=== PATIENT | female | born 1995 ===

== ENCOUNTER → 2020-09-11 12:58 | Outpatient (REF) | payer OTHER, SELFPAY ==
--- NOTE | 2020-09-11 13:02 | CA_ITS ---
Transthoracic Echocardiogram Patient (Last, First, Middle): Ivelisse Martin, Gender: Female Date of : 1995 Age: 25 Procedure Date: 09/11/2020 Procedure Type: Transthoracic Echocardiogram Location: OP Height: 160.02 cm Weight: 115.67 kg BSA: 2.14 m2 Heart Rate: bpm BP: 112 / 86 mmHg Home School Liaison Officer: DUKE Coffman MD: Charissa Adams MD Well Digger: Sushil Chaudhari MD Symptoms: I38 - Endocarditis, valve unspecified Study Quality: Technically Difficult ECG Rhythm: Sinus Conclusions: - 1. Low normal LV systolic function 2. Cardiac valves not well visualized and vegetations cannot be ruled out, cardiac valvular Doppler within normal limits 3. Normal RV systolic pressure 4. No pericardial effusion Findings Procedure Information Contrast agent, definity, is being given per protocol without apparent complications. Left Ventricle Normal left ventricular cavity size. There is normal left ventricular wall thickness. The left ventricular systolic function is low normal. The visually estimated ejection fraction is between 50-55%. Spectral Doppler is indicative of a normal filling pattern. Right Ventricle The right ventricle was not well visualized. Atria The left atrium is normal in size. Interatrial shunt cannot be excluded. The right atrium was not well visualized. Aortic Valve The aortic valve was not well visualized. There is no aortic valve stenosis. There is no aortic valve regurgitation. Mitral Valve The mitral valve was not well visualized. There is no mitral valve regurgitation. There is no mitral valve stenosis. Pulmonic Valve The pulmonic valve was not well visualized. Tricuspid Valve There is trace tricuspid valve regurgitation. The right ventricular systolic pressure is normal. The right ventricular systolic pressure is 17 mmHg. There is no evidence of pulmonary hypertension. Great Vessels The aorta was not well visualized. The pulmonary artery was not well visualized. Venous The inferior vena cava is normal in size and collapses greater than 50% with inspiration. Pericardium/Pleural There is no evidence of pericardial effusion. Prior Study Comparison No prior study available for comparison. Recommendations, Care & Conclusions Consider a ROBERTO if clinically appropriate. Measurements 2D Linear Measurements IVSd: 1.03 0.6-0.9/0.6-1.0 cm LVIDd: 5.47 3.9-5.3/4.2-5.9 cm LVIDd Index: 2.56 2.4-3.2/2.2-3.1 cm/m2 LVIDs: 3.86 2.0-3.6 cm LVPWd: 0.93 0.7-1.1 cm Ao Root: 2.80 2.1-3.5 cm LA Diam: 4.30 2.7-3.8/3.0-4.0 cm LAIDs Index: 2.01 1.5-2.3 cm/m2 LV Mass: 255.50 67-162/88-224 g LV Mass Index: 119.39 43-95/49-115 g/m2 LVOT Diam: 2.20 3.0+(-)1.3 cm 2D Systolic Function EF 4C: 43.40 >55% EF 2C: 63.40 >55% EF BiP: 53.50 >55% Mitral Valve MV Pk E: 0.73 MV PK A: 0.62 MV Decel Time: 118.00 E/A: 1.20 E'Lateral: 9.03 E'Medial: 7.29 E/E' Med: 10.00 E/E' Lat: 8.10 Aortic Valve AoV Pk Thom: 1.45 AoV Mn Thom: 1.02 AoV VTI: 0.25 AoV Pk Grad: 8.00 Aov Mn Grad: 5.00 JOHN Cont.VTI: 2.02 LVOT LVOT Pk Thom: 0.72 LVOT Mn Thom: 0.51 LVOT VTI: 0.13 LVOT Pk Grad: 2.00 LVOT Mn Grad: 1.00 LVOT Diam: 2.20 LVOT Area: 3.80 Diastolic Function MV Pk E: 0.73 MV Pk A: 0.62 E/A: 1.20 E'Medial: 7.29 E/E' Med: 10.00 E' Laterial: 9.03 E/E' Lat: 8.10 Tricuspid Valve TR Pk Thom: 1.86 TR Pk Grad: 14.00 RA Press: 3.00 RVSP: 17.00 Great Vessels Aorta Ao Root-2D: 2.80 2.0-3.7 cm Ao Asc: 2.80 2.1-3.4 cm Ao Arch: 2.50 Updated in Other Vendor System with Status of Final Sushil Chaudhari MD electronically signed on 09/11/2020 3:38:56 PM with status of Final
== END ==
LOC: HO.CARD 12:58
PROVIDERS: PCP Internal Medicine; Visit Provider Internal Medicine
DX: I38 Endocarditis, valve unspecified (principal)
CPT/HCPCS: 93306; Q9957

== ENCOUNTER 2020-11-14 14:33 | Outpatient (REF) | payer OTHER, SELFPAY ==
[2020-11-19 13:31] LABS: HPV mRNA E6/E7 rflx Not Detected (Not Detected)
== END 2020-11-14 14:34 | disposition home or self-care (01) ==
LOC: HO.LAB 14:33
PROVIDERS: PCP Internal Medicine; Visit Provider Advanced Practice Midwife
DX: Z01.419 Encounter for gynecological examination (general) (routine) without abnormal findings (principal); Z11.51 Encounter for screening for human papillomavirus (HPV); E66.01 Morbid (severe) obesity due to excess calories; Z68.43 Body mass index [BMI] 50.0-59.9, adult
CPT/HCPCS: 36415; 87624; 88142

== ENCOUNTER 2021-04-01 13:22 | Outpatient (REF) | payer OTHER, SELFPAY ==
--- NOTE | ~2021-04-01 | XR_ITS ---
EXAMINATION: XR ANKLE, LEFT CLINICAL INFORMATION: Injury of left ankle COMPARISON: None TECHNIQUE: AP, lateral, and mortise views of the left ankle. FINDINGS: The bones and soft tissues are normal. No fracture. Alignment is anatomic. Joint spaces are maintained. No joint effusion. XR/XR ankle LT min 3V IMPRESSION: Normal left ankle.
== END 2021-04-01 13:23 | disposition home or self-care (01) ==
LOC: HO.HMGCX 13:22
PROVIDERS: PCP Internal Medicine; Visit Provider Nurse Practitioner Family
DX: S99.912A Unspecified injury of left ankle, initial encounter (principal)
CPT/HCPCS: 73610

== ENCOUNTER 2021-08-04 15:04 | Outpatient (REF) | payer OTHER, SELFPAY ==
[2021-08-04 15:18] LABS: MANUAL DIFF FLAG NO
[2021-08-04 15:26] LABS: Basophils Percent Auto 0.2 % (0-2); Eosinophils Absolute Auto 0.1 X10*3/uL (0.0-0.4); Eosinophils Percent Auto 0.5 % (0-4); Hematocrit 41.2 % (37.0-47.0); Hemoglobin 13.2 g/dl (12.0-16.0); Imm Gran Abs Auto 0.04 X10*3/uL (0.00-0.03); Imm Gran Pct Auto 0.4 % (0.0-0.4); Lymphocytes Absolute Auto 2.8 X10*3/uL (1.2-4.9); Lymphocytes Percent Auto 27.1 % (20-40); Mean Corpuscular Volume 84.3 fL (80.0-98.0); Mean Platelet Volume 9.6 fL (9.4-12.3); Monocytes Absolute Auto 0.6 X10*3/uL (0.1-1.2); Monocytes Percent Auto 5.6 % (2-11); Neutrophils Absolute Auto 6.7 x10*3/uL (2.0-8.3); Neutrophils Percent Auto 66.2 % (45-73); Platelet Count 415 X10*3/uL (160-400); Red Blood Count 4.89 X10*6/uL (4.20-5.50); Red Cell Distribution Width 14.5 % (11.0-16.0); White Blood Count 10.1 X10*3/uL (4.8-10.8)
[2021-08-04 15:58] LABS: Alanine Aminotransferase 37 U/L (0-31); Alkaline Phosphatase 112 U/L (39-117); Anion Gap 11 (12-20); Aspartate Amino Transferase 25 U/L (5-31); Bilirubin Total 0.3 mg/dL (0.0-1.0); Blood Urea Nitrogen 11 mg/dL (9-16); Calcium 8.8 mg/dL (8.4-10.2); Carbon Dioxide 25 mmol/L (22-29); Chloride 109 mmol/L (96-108); Cholesterol 192 mg/dL; Estimated Glomerular Filt Rate > 60; Glucose Random 93 mg/dL (60-115); HDL Cholesterol 44 mg/dL; LDL Cholesterol Calculated 130 mg/dl; Potassium 4.4 mmol/L (3.3-5.1); Sodium 141 mmol/L (135-145); Total Protein 6.8 g/dL (6.5-8.0); Triglycerides 92 mg/dL
[2021-08-04 16:04] LABS: Estimated Average Glucose 100 mg/dL; Hemoglobin A1c % 5.1 %
[2021-08-04 16:18] LABS: Free T4 (Free Thyroxine) 1.04 ng/dL (0.71-1.85); Vitamin D 25-OH Total 7.2 ng/mL (>30)
[2021-08-04 16:31] LABS: Folate 9.8 ng/mL (> or = 4.0); Vitamin B12 310 pg/mL (200-900)
== END 2021-08-04 15:05 | disposition home or self-care (01) ==
LOC: HO.LAB 15:04
PROVIDERS: PCP Internal Medicine; Visit Provider Internal Medicine
DX: K21.9 Gastro-esophageal reflux disease without esophagitis (principal); E78.00 Pure hypercholesterolemia, unspecified
CPT/HCPCS: 36415; 80053; 80061; 82306; 82607; 82746; 83036; 84439; 84443; 85025

== ENCOUNTER → 2021-09-01 12:33 | Outpatient (BNVA) | payer OTHER, SELFPAY | PROVIDERS: PCP Internal Medicine; Visit Provider Physician Assistant | DX: S93.402A Sprain of unspecified ligament of left ankle, initial encounter (principal) | CPT/HCPCS: 99202 ==

== ENCOUNTER 2021-09-24 14:00 | Outpatient (RCR) | payer OTHER, SELFPAY ==
--- NOTE | 2021-09-01 16:44 | MHC.PT.EP ---
[facility] [place] Office [place] Office [place] Office [address]akan Baker [address] [phone] F: [phone] F: [phone] F: [phone] F: [phone] Physical Therapy Plan of Care Date of Evaluation: Date of Surgery: n/a Diagnosis: pain in L ankle and joints of L foot Assessment: Patient is a 26 year old female presenting to PT with complaints of pain in her L ankle and foot. Pt reports onset of pain began March 2021 due to injuring her ankle when on a water slide. She presents today with impairments in pain, ankle ROM, ankle strength, and balance. 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 Pt expresses snf goal of reducing pain, and is motivated to work towards this in PT. Clinical presentation today is most consistent with signs and sx associated with possible ankle sprain and pt will benefit from skilled PT to address the following problems and impairments noted upon evaluation: pain, ankle ROM, ankle strength, and balance. These problems limit the patient with the following functional activities: standing, ambulating, stair negotiation, ADLs, and work. The prescribed treatment plan of care is medically necessary. Co-morbidities of per pt hx of heart surgery when she was little due to murmur were identified and taken into considerations of plan of care. Pt was educated on HEP, role of PT, prognosis, POC. Frequency and Duration: The patient will be seen 2 x week x 4 weeks Short Term Goals: Pt will demonstrate L ankle AROM equal B in 2 weeks. Pt will demonstraet L ankle MMT equal B in 2 weeks. Pt will demonstrate ability to SLS x 30 sec with min to no ankle strategy or sway in 2 weeks. Garbage Person Goals: Pt will demonstrate improved LEFI by 9 points in 4 weeks for improved overall functional mobility. Pt will demonstrate ability to ambulate and stand for prolonged periods of time with min to no pain in 4 weeks for improved tolerance to work. Pt will demonstrate ability to negotiate stairs with min to no pain in 4 weeks to allow return to PLOF. Treatment Plan: Modalities to reduce pain, spasms and effusion. Manual therapy to restore motion and function. Therapeutic exercise to improve strength and flexibility. Neuromuscular re-education for posture and balance. Therapeutic activities to return to functional activities of daily living. Electronically signed by: Argenis Sheth PT, DPT, ATC Please sign and return to therapist. Thank you for your referral.
--- NOTE | 2021-11-25 13:38 | MHC.PT.DC ---
[facility] [place] Office [place] Office [place] Office [address] [facility] [phone] F: [phone] F: [phone] F: [phone] F: [phone] Physical Therapy Discharge Report Diagnosis: pain in L ankle and joints of L foot Date of Surgery: n/a Date of Evaluation: 09/01/21 Date of Discharge: 11/25/21 Treatments to Date: 7 Cancellations to Date: 2 No Shows to Date: 0 Discharge Status: Discharge Summary: Pt cancelled final PT appt and has not returned in >2 months. Pt status unknown at this time and therefore is d/c. Electronically signed by: Argenis Sheth, PT, DPT, ATC Please sign and return to therapist. Thank you for your referral.
== END 2021-11-25 13:38 | disposition home or self-care (01) ==
LOC: HO.PT 14:00
PROVIDERS: PCP Internal Medicine; Visit Provider Internal Medicine
DX: M25.572 Pain in left ankle and joints of left foot (principal)
CPT/HCPCS: 97110; 97140; 97161

== ENCOUNTER 2021-09-24 15:43 | Outpatient (REF) | payer OTHER, SELFPAY ==
--- NOTE | ~2021-09-24 | MR_ITS ---
EXAMINATION: MRI ANKLE WITHOUT CONTRAST, LEFT CLINICAL INFORMATION: Medial left ankle pain following a twisting injury in March 2021. Difficulty walking. COMPARISON: Left ankle radiographs dated 04/01/2021. TECHNIQUE: Multisequence MR imaging of the left ankle was obtained without contrast on a high-field strength scanner. FINDINGS: BONE AND ARTICULAR CARTILAGE: No abnormal marrow signal. No stress reaction or fracture. Intact articular cartilage. No talar osteochondral lesion. ACHILLES TENDON: Intact Achilles tendon. Trace fluid along the undersurface of the distal Achilles tendon, consistent with peritendinitis. OTHER TENDONS: Mild fluid within the posterior tibialis tendon sheath, consistent mild tenosynovitis. No measurable tendon defect. LIGAMENTS: Attenuation of the anterior talofibular ligament as well as abnormal signal throughout the posterior talofibular ligament, consistent with remote sprain/partial tears. No edema to suggest acute ligament injury. JOINT FLUID AND SOFT TISSUES: Small tibiotalar joint effusion. PLANTAR FASCIA: Normal. SINUS TARSI AND TARSAL TUNNEL: Normal. MR/MR ankle LT wo con IMPRESSION: 1. Remote sprain/partial tears of the anterior and posterior talofibular ligaments. No evidence of acute ligament injury. 2. Fluid along the undersurface of the distal Achilles tendon, consistent with mild peritendinitis. No measurable tendon defect. 3. Mild posterior tibialis tenosynovitis. 4. No acute osseous abnormality. Small tibiotalar joint effusion.
== END 2021-09-24 15:44 | disposition home or self-care (01) ==
LOC: HO.MRI 15:43
PROVIDERS: PCP Internal Medicine; Visit Provider Physician Assistant
DX: S99.912D Unspecified injury of left ankle, subsequent encounter (principal); S93.402D Sprain of unspecified ligament of left ankle, subsequent encounter; M25.572 Pain in left ankle and joints of left foot; R26.2 Difficulty in walking, not elsewhere classified
CPT/HCPCS: 73721

== ENCOUNTER → 2021-10-20 09:38 | Outpatient (BNVA) | payer OTHER, SELFPAY | PROVIDERS: PCP Internal Medicine; Visit Provider Physician Assistant | DX: S93.402D Sprain of unspecified ligament of left ankle, subsequent encounter (principal) | CPT/HCPCS: 99212 ==

== ENCOUNTER 2022-07-09 | Outpatient (REF) | payer OTHER, SELFPAY ==
--- NOTE | ~2022-07-09 | XR_ITS ---
EXAMINATION: XR ANKLE, LEFT CLINICAL INFORMATION: Pain COMPARISON: None TECHNIQUE: AP, lateral, and mortise views of the left ankle. FINDINGS: The bones and soft tissues are normal. No fracture. Alignment is anatomic. Joint spaces are maintained. No joint effusion. XR/XR ankle LT min 3V IMPRESSION: Unremarkable left ankle.
== END 2022-07-09 00:01 | disposition home or self-care (01) ==
LOC: HO.HOSX
PROVIDERS: Visit Provider Physician Assistant
DX: S93.402A Sprain of unspecified ligament of left ankle, initial encounter (principal); M25.572 Pain in left ankle and joints of left foot; G89.29 Other chronic pain; X58.XXXA Exposure to other specified factors, initial encounter; Y93.9 Activity, unspecified; Y92.9 Unspecified place or not applicable; Y99.9 Unspecified external cause status
CPT/HCPCS: 73610; 99212

== ENCOUNTER 2022-08-07 10:11 | Outpatient (REF) | payer OTHER, SELFPAY ==
[2022-08-07 10:25] LABS: MANUAL DIFF FLAG NO
[2022-08-07 10:36] LABS: Basophils Percent Auto 0.1 % (0-2); Eosinophils Absolute Auto 0.1 X10*3/uL (0.0-0.4); Eosinophils Percent Auto 0.6 % (0-4); Hematocrit 41.3 % (37.0-47.0); Hemoglobin 13.5 g/dl (12.0-16.0); Imm Gran Abs Auto 0.02 X10*3/uL (0.00-0.03); Imm Gran Pct Auto 0.3 % (0.0-0.4); Lymphocytes Absolute Auto 2.4 X10*3/uL (1.2-4.9); Mean Corpuscular HGB Conc 32.7 g/dl (31.0-35.0); Mean Corpuscular Hemoglobin 27.2 pg (27.0-33.0); Mean Corpuscular Volume 83.3 fL (80.0-98.0); Monocytes Absolute Auto 0.5 X10*3/uL (0.1-1.2); Monocytes Percent Auto 5.6 % (2-11); Neutrophils Absolute Auto 5.1 x10*3/uL (2.0-8.3); Neutrophils Percent Auto 63.4 % (45-73); Platelet Count 402 X10*3/uL (160-400); Red Blood Count 4.96 X10*6/uL (4.20-5.50); Red Cell Distribution Width 14.6 % (11.0-16.0)
[2022-08-07 11:06] LABS: Appearance Urine Clear; Color Urine Yellow; Glucose Urine UA Negative (Negative); Leukocyte Esterase Urine Small (1+) (Negative); Nitrite Urine Negative (Negative); PH 5.5 (5.0-9.0); UMIC TRIGGER UACC YES; Urine Blood Negative (Negative); Urine Ketones Negative (Negative); Urine Protein Negative (Neg-Trace)
[2022-08-07 11:09] LABS: Bacteria Urine 1+ (None Seen); Hyaline Casts Urine 0-2 /LPF (0-2); RBC Urine 0-2 /HPF (0-2); UACC Culture Trigger YES
[2022-08-07 11:11] LABS: Estimated Average Glucose 103 mg/dL; Hemoglobin A1c % 5.2 %
[2022-08-07 11:28] LABS: Alanine Aminotransferase 44 U/L (0-31); Albumin Level 4.1 g/dL (3.5-5.0); Alkaline Phosphatase 129 U/L (39-117); Anion Gap 14 (12-20); Aspartate Amino Transferase 31 U/L (5-31); Bilirubin Total 0.4 mg/dL (0.0-1.0); Blood Urea Nitrogen 14 mg/dL (9-16); Calcium 8.9 mg/dL (8.4-10.2); Carbon Dioxide 23 mmol/L (22-29); Chloride 108 mmol/L (96-108); Cholesterol 198 mg/dL; Estimated Glomerular Filt Rate > 60; Glucose Random 90 mg/dL (60-115); HDL Cholesterol 46 mg/dL; LDL Cholesterol Calculated 140 mg/dl; Potassium 4.3 mmol/L (3.3-5.1); Sodium 141 mmol/L (135-145); Total Protein 6.8 g/dL (6.5-8.0); Triglycerides 60 mg/dL
[2022-08-07 11:51] LABS: Free T4 (Free Thyroxine) 1.12 ng/dL (0.71-1.85); Thyroid Stimulating Hormone 1.07 uIU/mL (0.32-4.0)
[2022-08-07 12:00] LABS: Folate 8.4 ng/mL (> or = 4.0); Vitamin B12 281 pg/mL (200-900)
[2022-08-07 12:49] LABS: Vitamin D 25-OH Total 21.1 ng/mL (>30)
== END 2022-08-07 10:12 | disposition home or self-care (01) ==
LOC: HO.LAB 10:11
PROVIDERS: PCP Internal Medicine; Visit Provider Internal Medicine
DX: E78.00 Pure hypercholesterolemia, unspecified (principal)
CPT/HCPCS: 36415; 80053; 80061; 81001; 81003; 82306; 82607; 82746; 83036; 84439; 84443; 85025; 87086

== ENCOUNTER 2022-08-11 09:56 | Outpatient (REF) | payer OTHER, SELFPAY ==
[2022-08-11 11:06] LABS: Appearance Urine Clear; Color Urine Yellow; Glucose Urine UA Negative (Negative); Leukocyte Esterase Urine Trace (Negative); Nitrite Urine Negative (Negative); PH 5.5 (5.0-9.0); UMIC TRIGGER UACC YES; Urine Blood Negative (Negative); Urine Ketones Negative (Negative); Urine Protein Negative (Neg-Trace)
[2022-08-11 11:12] LABS: Bacteria Urine None Seen (None Seen); RBC Urine 0-2 /HPF (0-2); WBC Urine 0-5 /HPF (0-5)
[2022-08-11 11:28] LABS: Alanine Aminotransferase 43 U/L (0-31); Alkaline Phosphatase 128 U/L (39-117); Anion Gap 13 (12-20); Aspartate Amino Transferase 27 U/L (5-31); Bilirubin Total 0.2 mg/dL (0.0-1.0); Blood Urea Nitrogen 11 mg/dL (9-16); Calcium 9.2 mg/dL (8.4-10.2); Carbon Dioxide 26 mmol/L (22-29); Chloride 106 mmol/L (96-108); Estimated Glomerular Filt Rate > 60; Glucose Random 91 mg/dL (60-115); Sodium 141 mmol/L (135-145); Total Protein 6.8 g/dL (6.5-8.0)
[2022-08-11 11:43] LABS: HBc Num1 0.14 S/CO (0.00-0.79); HBsAGNum1 0.19 S/CO (0.00-0.99); Hepatitis B Core Antibody Nonreactive (Nonreactive); Hepatitis B Surface Antigen Negative (Negative); ~HepC Num1 0.08 S/CO (0.00-0.79); ~Hepatitis B Surface Antibody NONREACTIVE (Nonreactive); ~Hepatitis C Antibody Nonreactive (Nonreactive)
== END 2022-08-11 09:57 | disposition home or self-care (01) ==
LOC: HO.LAB 09:56
PROVIDERS: PCP Internal Medicine; Visit Provider Internal Medicine
DX: R79.89 Other specified abnormal findings of blood chemistry (principal); N20.0 Calculus of kidney
CPT/HCPCS: 36415; 80053; 81001; 81003; 86704; 86706; 86803; 87340

== ENCOUNTER 2022-09-17 09:44 | Outpatient (REF) | payer OTHER, SELFPAY ==
--- NOTE | ~2022-09-17 | US_ITS ---
EXAMINATION: US ABDOMEN COMPLETE CLINICAL INFORMATION: Other specified abnormal findings of blood chemistry. COMPARISON: X-ray abdomen KUB 06/15/2017. TECHNIQUE: Real-time imaging of the abdominal viscera. Technically difficult study secondary to body habitus. FINDINGS: PANCREAS: Normal. ABDOMINAL AORTA: The proximal, mid, and distal segments are normal in caliber. INFERIOR VENA CAVA: Visualized portions are normal. LIVER: The liver is normal in size. The liver contour is normal. There is diffuse increased liver parenchymal echogenicity, consistent with infiltrative hepatocellular disease. No focal hepatic lesion. There is no intrahepatic biliary duct dilatation seen. GALLBLADDER: Normal. The gallbladder is physiologically distended without evidence of stones, sludge, polyps, wall thickening or pericholecystic fluid. COMMON BILE DUCT: Normal in caliber measuring 0.3 cm in diameter. RIGHT KIDNEY: Normal. No hydronephrosis. No renal calculi or focal parenchymal lesions. The kidney measures 11.1 cm in maximum dimension. LEFT KIDNEY: Normal. No hydronephrosis. No renal calculi or focal parenchymal lesions. The kidney measures 11.2 cm in maximum dimension. SPLEEN: Normal. The spleen measures 11.1 cm in maximum dimension. FREE FLUID: None. US/US abdomen complete IMPRESSION: Increased hepatic echogenicity which can be seen in the setting of hepatic steatosis or underlying liver disease.
== END 2022-09-17 09:45 | disposition home or self-care (01) ==
LOC: HO.US 09:44
PROVIDERS: Visit Provider Internal Medicine
DX: N20.0 Calculus of kidney (principal); R79.89 Other specified abnormal findings of blood chemistry
CPT/HCPCS: 76700

== ENCOUNTER → 2022-12-01 10:39 | Outpatient (BNVA) | payer OTHER, SELFPAY | PROVIDERS: PCP Internal Medicine; Visit Provider Dietitian, Registered | DX: E66.01 Morbid (severe) obesity due to excess calories (principal); Z68.43 Body mass index [BMI] 50.0-59.9, adult | CPT/HCPCS: 97802 ==

== ENCOUNTER → 2023-01-06 10:14 | Outpatient (BNVA) | payer OTHER, SELFPAY | PROVIDERS: PCP Internal Medicine; Visit Provider Dietitian, Registered | DX: E66.01 Morbid (severe) obesity due to excess calories (principal); Z68.43 Body mass index [BMI] 50.0-59.9, adult | CPT/HCPCS: 97803 ==

== ENCOUNTER 2023-08-10 09:43 | Outpatient (AMB) | payer OTHER, SELFPAY ==
--- NOTE | 2023-08-10 09:44 | AM.OFFVISNUR ---
Intake Intake Visit Reasons: Flu Allergies No Known Allergies [No Known Allergies*] Allergy (Verified 02/18/23 15:38) Office Procedures Flu Questionnaire Does the patient have a severe egg allergy?: No Does the patient have severe life threatening allergies?: No Does the patient have a fever or illness today?: No Has the patient ever had Guillain-[place] Syndrome?: No Has the patient ever had any past reaction to a flu shot?: No Immunizations flu vacc [id number] 6mos up(PF) 60 mcg(15 mcgx4)/0.5 mL IM syringe Performing Provider: Charissa Adams MD [facility] Administered by: Vivian Tobin RN on 08/10/23 09:51 Dose Route Admin Location Dispensed Lot Number Expiration Date NDC Release Of Information Specialist 0.5 mL IM Left Deltoid 0.5 mL [id number] 03/26/24 [id number] SPIRIT Navigation VIS Given Date VIS Provided VIS Publication Date 08/10/23 Single Vaccine 21 Eligibility Eligibility Date Funding Source Not [facility] Eligible 08/10/23 Private Coding Assessment & Plan Assessment & Plan Orders: Orders Influenza [id number] Immunization Today Z23 - Encounter for immunization
== END 2023-08-10 09:51 | disposition home or self-care (01) ==
PROVIDERS: PCP Internal Medicine; Visit Provider Internal Medicine
DX: Z23 Encounter for immunization (principal)
CPT/HCPCS: 90471; 90686

== ENCOUNTER 2023-11-01 14:47 | Outpatient (AMB) | payer OTHER, SELFPAY ==
[2023-11-01 14:52] VITALS: BP 124/80; PULSE 71; O2SAT 99; BMI 51.5
--- NOTE | 2023-11-01 14:52 | MHC.PC.OV ---
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 Accompanied by: Self / Same As Patient Allergies No Known Allergies [No Known Allergies*] Allergy (Verified 11/01/23 14:52) Medication List - Last Reconciled 11/01/23 by Charissa Adams MD cholecalciferol (vitamin D3) 50 mcg PO DAILY cyclobenzaprine 5 mg PO TID PRN 30 days diclofenac sodium 1% (Voltaren Arthritis Pain) 4 grams topical QID ibuprofen 600 mg PO Q8H PRN omeprazole 20 mg PO DAILY Tobacco use date assessed: 11/01/23 Dental Screening Dental Screen Date: 11/01/23 Did you have a dental visit in the last 12 months?: Yes Did you have a dental problem in the last 6 months where you did not have access to dental care?: No Was dental information given to patient?: Patient has dentist HPI pe HPI Details 28-year-old morbidly obese female with hypercholesterolemia , fatty liver and GERD coming in for physical exam last seen in January 2023.. [facility] Medical History (Updated 11/01/23 @ 15:13 by Charissa Adams MD) Left ankle sprain Left ankle injury Near syncope Cervical cancer screening Hypercholesterolemia Obesity GERD (gastroesophageal reflux disease) Migraine ADHD Vitamin D deficiency Surgical History H/O heart surgery Family History Father Diabetes Mother Diabetes Hypertension Maternal Aunt Pancreatic cancer Social History Housing: House Alcohol intake: never Patient Tobacco Use Status: Never used Tobacco e-Cigarette/Vaping Use: Never Used Second Hand Smoke Exposure: No service: No Current occupational status: employed 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 1. Little interest or pleasure in doing things: not at all 2. Feeling down, depressed, or hopeless: not at all 3. Trouble falling or staying asleep, or sleeping too much: not at all 4. Feeling tired or having little energy: not at all 5. Poor appetite or overeating: not at all 6. Feeling bad about yourself - or that you are a failure or have let yourself or your family down: not at all 7. Trouble concentrating on things, such as reading the newspaper or watching television: not at all 8. Moving or speaking so slowly that other people could have noticed. Or the opposite - being so fidgety or restless that you have been moving around a lot more than usual: not at all 9. Thoughts that you would be better off or of hurting yourself in some way: not at all Total score: 0 Depression Screening Interpretation: Negative Depression Screening Done: Yes 22134 - PHQ-9 Billing: Yes Source: Developed by Drs. Godwin Fernandez, Sarah Arambula, Tony Kirkpatrick and colleagues, with an educational compa from [employer]. Thrive Questionnaire Date Thrive assessed: 11/01/23 I am a: Patient What is your living situation today?: I have a steady place to live Within the past 12 months, did the food you bought not last and you didn't have the money to get more?: Never true Within the past 12 months, did you worry whether your food would run out before you got money to buy more?: Never true Do you have trouble paying for medicines?: No Do you have trouble getting transportation to medical appointments?: No Do you have trouble paying your heating and electricity bill?: No Do you have trouble taking care of your child, family member or friend?: No Do you have trouble with day-to-day activities such as bathing, preparing meals, shopping, managing finances, etc.?: No Are you currently unemployed and looking for a job?: No Are you interested in more education?: No Please select the resources that you would like help with: None THRIVE Score: 0 AUDIT C Alcohol Use Questionnaire (AUDIT-C) 1. How often do you have a drink containing alcohol?: Never 2. How many drinks containing alcohol do you have on a typical day when you are drinking?: 1 or 2 Total Score: 0 Score Reviewed/Action Taken: No HEMANT-7 AMB Questionnaire HEMANT-7 Date HEMANT - 7 assessed: 11/01/23 Feeling nervous, anxious, or on edge: 0 = Not at all Not being able to stop or control worryin = Not at all Worrying too much about different things: 0 = Not at all Trouble relaxin = Not at all Being so restless that it is hard to sit still: 0 = Not at all Becoming easily annoyed or irritable: 0 = Not at all Feeling afraid as if something awful might happen: 0 = Not at all Total HEMANT-7 score (0-4 normal; 5-9 mild; 10-14 moderate; 15-21 severe): 0 Source: Developed by Drs. Godwin Fernandez, Sarah Arambula, Tony Kirkpatrick and colleagues, with an educational compa from [employer]. Review of Systems Const Denies poor appetite and Denies weakness Eyes Denies no additional complaints ENT Reports Normal hearing present, Denies dizziness, Denies nasal congestion, Denies tinnitus and Denies sore throat Card Denies chest pain, Denies syncope, Denies rapid heart rate and Denies dyspnea Resp Denies cough and Denies dyspnea GI Denies change in stool character, Reports constipation, Denies diarrhea, Denies nausea and Denies vomiting Denies urinary frequency, Denies difficulty voiding and Denies dysuria Neuro Reports Normal hearing present, Denies confusion, Denies dizziness, Denies syncope and Denies weakness Psych Denies confusion Physical exam (Primary Care) Vital Signs: Last Vital Signs Pulse 71 11/01/23 14:52 BP 124/80 11/01/23 14:52 Pulse Ox 99 11/01/23 14:52 Oxygen Delivery Method Room Air 11/01/23 14:52 BMI result Body Mass Index 51.5 Tobacco/Smoking Status: Tobacco use Status Tobacco use date assessed 11/01/23 11/01/23 14:54 Patient Tobacco Use Status Never used Tobacco 11/01/23 14:54 e-Cigarette/Vaping Use Never Used 11/01/23 14:54 PHQ-9: PHQ-9 Score PHQ-9: Total score 0 11/01/23 14:54 Depression Screening Interpretation: Negative Thrive Assessment: Date of Thrive Assessment Date Thrive assessed 11/01/23 11/01/23 14:54 Const General: No confusion Orientation/consciousness: No confusion HENMT Head: Yes normocephalic Ears: external ears normal and TM's normal bilaterally Face and sinus: Yes normal facial exam Mouth: moist mucous membranes Throat: Yes tonsils normal Eyes Conjunctivae: conjunctivae normal Pupils: Equal, round and reactive pupils present and Pupil accommodation reflex normal Direct Ophthalmoscopy: normal light reflex Neck Neck: No lymphadenopathy Thyroid: Thyroid normal Chest Chest palpation & inspection: normal inspection of the chest Resp Effort & Inspection: normal respiratory effort and no audible wheezes Auscultation: clear to auscultation bilaterally, no crackles, no wheezes and lung sounds not diminished Cardio Rate: regular rate Rhythm: regular rhythm Peripheral pulses: radial pulses present and dorsalis pedis present GI Palpation (GI): no masses Auscultation: normal bowel sounds and normoactive bowel sounds Rectal Exam - Female: deferred Skin General skin exam: no rashes or lesions noted Rashes: no rashes Neuro General: No confusion Cranial nerves: Yes Equal, round and reactive pupils present and Yes Normal hearing present Cognition (Neuro): normal cognition Gait exam (Neuro): Normal gait present Motor exam (neuro): 5/5 motor strength present throughout Deep tendon reflexes (DTR's): Right brachioradialis reflex intensity grade: 2+, Left brachioradialis reflex intensity grade: 2+, Right patellar reflex intensity grade: 2+ and Left patellar reflex intensity grade: 2+ Extrem General: No edema Assessment and Plan Assessment & Plan (1) Annual physical exam: Code(s): Z00.00 - Encounter for general adult medical examination without abnormal findings (2) GERD (gastroesophageal reflux disease): Code(s): K21.9 - Gastro-esophageal reflux disease without esophagitis Qualifiers: Esophagitis presence: without esophagitis Qualified Code(s): K21.9 - Gastro-esophageal reflux disease without esophagitis Plan: Avoid the foods that causes that usually spicy foods, tomato products, juices, coffee, soda and foods that your sensitive to. After eating do not lie down, allow 3-4 hours before in lie down. And keep the head of bed above 30 degrees to avoid the acid from going up. (3) Hypercholesterolemia: Code(s): E78.00 - Pure hypercholesterolemia, unspecified Plan: Avoid fried foods, chicken skin, eggs, butter margarine, pastries and meat. Be it pork or beef they have a lot of cholesterol LDL goal of less than 130 and triglyceride of less than 150 (4) Morbid obesity with BMI of 50.0-59.9, adult: Code(s): E66.01 - Morbid (severe) obesity due to excess calories; Z68.43 - Body mass index [BMI] 50.0-59.9, adult Plan: Discussed the importance of getting weight down, eat healthy and exercise (5) Fatty liver: Code(s): K76.0 - Fatty (change of) liver, not elsewhere classified Plan: Low-fat diet and exercise (6) Insomnia: Code(s): G47.00 - Insomnia, unspecified Orders: Orders Thyroid Stimulating Hormone Today E78.00 - Pure hypercholesterolemia, unspecified Lipid Panel Today E78.00 - Pure hypercholesterolemia, unspecified Complete Blood Count Auto Diff Today E78.00 - Pure hypercholesterolemia, unspecified Comprehensive Met. Panel Today E78.00 - Pure hypercholesterolemia, unspecified Free T4 (Free Thyroxine) Today E78.00 - Pure hypercholesterolemia, unspecified Vitamin B12 and Folate Today E78.00 - Pure hypercholesterolemia, unspecified Vitamin D 25-OH Total Today E78.00 - Pure hypercholesterolemia, unspecified Medications: New tirzepatide (weight loss) (Zepbound) 2.5 mg (0.5 mL) subcut QWEEK 4 weeks 2 mL 0RF E66.01 - Morbid (severe) obesity due to excess calories, Z68.43 - Body mass index [BMI] 50.0-59.9, adult zolpidem 5 mg PO BEDTIME PRN 14 tabs 1RF sleep G47.00 - Insomnia, unspecified Coding Level of Care Code Est Pt Prev Care 18-39y(39731) Diagnoses Annual physical exam Z00.00 Gastroesophageal reflux disease without esophagitis K21.9 Esophagitis presence: without esophagitis Hypercholesterolemia E78.00 Morbid obesity with BMI of 50.0-59.9, adult E66.01; Z68.43 Fatty liver K76.0 Insomnia G47.00
== END 2023-11-01 15:25 | disposition home or self-care (01) ==
PROVIDERS: PCP Internal Medicine; Visit Provider Internal Medicine
DX: Z00.00 Encounter for general adult medical examination without abnormal findings (principal); E66.01 Morbid (severe) obesity due to excess calories; Z68.43 Body mass index [BMI] 50.0-59.9, adult; K21.9 Gastro-esophageal reflux disease without esophagitis; E78.00 Pure hypercholesterolemia, unspecified; K76.0 Fatty (change of) liver, not elsewhere classified; G47.00 Insomnia, unspecified
CPT/HCPCS: 99395

== ENCOUNTER 2023-11-02 09:15 | Outpatient (REF) | payer OTHER, SELFPAY ==
[2023-11-02 11:17] LABS: MANUAL DIFF FLAG NO
[2023-11-02 11:27] LABS: Basophils Percent Auto 0.3 % (0-2); Eosinophils Percent Auto 0.5 % (0-4); Hemoglobin 13.1 g/dl (12.0-16.0); Imm Gran Abs Auto 0.01 X10*3/uL (0.00-0.03); Imm Gran Pct Auto 0.1 % (0.0-0.4); Lymphocytes Percent Auto 27.3 % (20-40); Mean Corpuscular Hemoglobin 26.8 pg (27.0-33.0); Mean Platelet Volume 10.4 fL (9.4-12.3); Monocytes Absolute Auto 0.4 X10*3/uL (0.1-1.2); Monocytes Percent Auto 5.8 % (2-11); Neutrophils Absolute Auto 4.9 x10*3/uL (2.0-8.3); Platelet Count 410 X10*3/uL (160-400); Red Blood Count 4.88 X10*6/uL (4.20-5.50); Red Cell Distribution Width 14.1 % (11.0-16.0); White Blood Count 7.4 X10*3/uL (4.8-10.8)
[2023-11-02 12:32] LABS: Folate 12.3 ng/mL (> or = 4.0); Vitamin B12 321 pg/mL (200-900)
[2023-11-02 12:43] LABS: Alanine Aminotransferase 26 U/L (0-31); Albumin Level 3.8 g/dL (3.5-5.0); Alkaline Phosphatase 124 U/L (39-117); Anion Gap 11 (12-20); Aspartate Amino Transferase 18 U/L (5-31); Bilirubin Total 0.3 mg/dL (0.0-1.0); Blood Urea Nitrogen 9 mg/dL (9-16); Calcium 9.2 mg/dL (8.4-10.2); Carbon Dioxide 27 mmol/L (22-29); Chloride 108 mmol/L (96-108); Cholesterol 187 mg/dL (<200); Estimated Glomerular Filt Rate > 60; Glucose Random 85 mg/dL (60-115); HDL Cholesterol 44 mg/dL (>40); LDL Cholesterol Calculated 125 mg/dL (<100); Potassium 4.1 mmol/L (3.3-5.1); Sodium 142 mmol/L (135-145); Triglycerides 91 mg/dL (<150)
[2023-11-02 13:24] LABS: Free T4 (Free Thyroxine) 1.07 ng/dL (0.71-1.85); Thyroid Stimulating Hormone 0.63 uIU/mL (0.32-4.0); Vitamin D 25-OH Total 13.5 ng/mL (>30)
== END 2023-11-02 09:16 | disposition home or self-care (01) ==
LOC: HO.HMGCLDS 09:15
PROVIDERS: PCP Internal Medicine; Visit Provider Internal Medicine
DX: E78.00 Pure hypercholesterolemia, unspecified (principal)
CPT/HCPCS: 36415; 80053; 80061; 82306; 82607; 82746; 84439; 84443; 85025

== ENCOUNTER 2024-02-14 14:36 | Outpatient (AMB) | payer OTHER, SELFPAY ==
[2024-02-14 14:38] VITALS: BP 134/82; PULSE 92; O2SAT 98; BMI 53.1
--- NOTE | 2024-02-14 14:38 | MHC.PC.OV ---
Vital Signs 02/14/24 14:38 Height 5 ft 3 in Weight 300 lb BMI 53.1 BP 134/82 Blood Pressure Location Lt brachial Position Sitting Pulse 92 Pulse Source Pulse Oximeter Pulse Oximetry (%) 98 Oxygen Delivery Method Room Air Intake Visit Reasons: insomnia Dining Service Inspector Required: No Allergies No Known Allergies [No Known Allergies*] Allergy (Verified 02/14/24 14:38) Medication List - Last Reconciled 02/14/24 by Charissa Adams MD cholecalciferol (vitamin D3) 50 mcg PO DAILY cyclobenzaprine 5 mg PO TID PRN 30 days diclofenac sodium 1% (Voltaren Arthritis Pain) 4 grams topical QID ibuprofen 600 mg PO Q8H PRN omeprazole 20 mg PO DAILY semaglutide 0.25 mg (0.368 mL) subcut QWEEK zolpidem 5 mg PO BEDTIME PRN Tobacco use date assessed: 02/14/24 Dental Screening Dental Screen Date: 11/01/23 HPI insomnia HPI Details 28-year-old morbidly obese female with GERD hypercholesterolemia fatty liver last seen in October 2023. cough for month, am itchy throat, , has dogs , no fevers, , no sob, no b/b sx. sometimes get sleepy, occ takes a nap, , no sleeping on watching tv, PFSH Medical History (Updated 02/14/24 @ 15:08 by Charissa Adams MD) Valvular heart disease Left ankle sprain Left ankle injury Near syncope Cervical cancer screening Hypercholesterolemia Obesity GERD (gastroesophageal reflux disease) Migraine ADHD Vitamin D deficiency Surgical History H/O heart surgery Family History Father Diabetes Mother Diabetes Hypertension Maternal Aunt Pancreatic cancer Social History Housing: House Alcohol intake: never Patient Tobacco Use Status: Never used Tobacco e-Cigarette/Vaping Use: Never Used Second Hand Smoke Exposure: No service: No Current occupational status: employed 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 1. Little interest or pleasure in doing things: not at all 2. Feeling down, depressed, or hopeless: not at all 3. Trouble falling or staying asleep, or sleeping too much: not at all 4. Feeling tired or having little energy: not at all 5. Poor appetite or overeating: not at all 6. Feeling bad about yourself - or that you are a failure or have let yourself or your family down: not at all 7. Trouble concentrating on things, such as reading the newspaper or watching television: not at all 8. Moving or speaking so slowly that other people could have noticed. Or the opposite - being so fidgety or restless that you have been moving around a lot more than usual: not at all 9. Thoughts that you would be better off or of hurting yourself in some way: not at all Total score: 0 Depression Screening Interpretation: Negative Depression Screening Done: Yes 96097 - PHQ-9 Billing: Yes Source: Developed by Drs. Godwin Fernandez, Sarah Arambula, Tony Kirkpatrick and colleagues, with an educational compa from [employer]. Thrive Questionnaire Date Thrive assessed: 11/01/23 I am a: Patient What is your living situation today?: I have a steady place to live Within the past 12 months, did the food you bought not last and you didn't have the money to get more?: Never true Within the past 12 months, did you worry whether your food would run out before you got money to buy more?: Never true Do you have trouble paying for medicines?: No Do you have trouble getting transportation to medical appointments?: No Do you have trouble paying your heating and electricity bill?: No Do you have trouble taking care of your child, family member or friend?: No Do you have trouble with day-to-day activities such as bathing, preparing meals, shopping, managing finances, etc.?: No Are you currently unemployed and looking for a job?: No Are you interested in more education?: No Please select the resources that you would like help with: None THRIVE Score: 0 AUDIT C Alcohol Use Questionnaire (AUDIT-C) 1. How often do you have a drink containing alcohol?: Never 2. How many drinks containing alcohol do you have on a typical day when you are drinking?: 1 or 2 3. How often do you have six or more drinks on one occasion?: Never Total Score: 0 Score Reviewed/Action Taken: No HEMANT-7 AMB Questionnaire HEMANT-7 Date HEMANT - 7 assessed: 11/01/23 Source: Developed by Drs. Godwin Fernandez, Sarah Arambula, Tony Kirkpatrick and colleagues, with an educational compa from [employer]. Physical exam (Primary Care) Vital Signs: Last Vital Signs Pulse 92 02/14/24 14:38 BP 134/82 02/14/24 14:38 Pulse Ox 98 02/14/24 14:38 Oxygen Delivery Method Room Air 02/14/24 14:38 BMI result Body Mass Index 53.1 Tobacco/Smoking Status: Tobacco use Status Tobacco use date assessed 02/14/24 02/14/24 14:39 Patient Tobacco Use Status Never used Tobacco 02/14/24 14:39 e-Cigarette/Vaping Use Never Used 02/14/24 14:39 PHQ-9: PHQ-9 Score PHQ-9: Total score 0 02/14/24 15:00 Depression Screening Interpretation: Negative Thrive Assessment: Date of Thrive Assessment Date Thrive assessed 11/01/23 02/14/24 14:39 Const General: alert; No acute distress Eyes Conjunctivae: conjunctivae normal Resp Auscultation: clear to auscultation bilaterally Cardio Rate: regular rate Rhythm: regular rhythm GI Inspection: Yes normal to inspection Extrem General: Yes normal to inspection and No edema Assessment and Plan Assessment & Plan (1) GERD (gastroesophageal reflux disease): Code(s): K21.9 - Gastro-esophageal reflux disease without esophagitis Qualifiers: Esophagitis presence: without esophagitis Qualified Code(s): K21.9 - Gastro-esophageal reflux disease without esophagitis Plan: Avoid the foods that causes that usually spicy foods, tomato products, juices, coffee, soda and foods that your sensitive to. After eating do not lie down, allow 3-4 hours before in lie down. And keep the head of bed above 30 degrees to avoid the acid from going up. On omeprazole 20 mg once a day (2) Hypercholesterolemia: Code(s): E78.00 - Pure hypercholesterolemia, unspecified Plan: Avoid fried foods, chicken skin, eggs, butter margarine, pastries and meat. Be it pork or beef they have a lot of cholesterol LDL goal of less than 130 and triglyceride of less than 150 (3) Morbid obesity with BMI of 50.0-59.9, adult: Code(s): E66.01 - Morbid (severe) obesity due to excess calories; Z68.43 - Body mass index [BMI] 50.0-59.9, adult Plan: Diet and exercise (4) Insomnia: Code(s): G47.00 - Insomnia, unspecified Plan: Patient was placed on zolpidem (5) Cough: Code(s): R05.9 - Cough, unspecified Plan: Allergy medication sent in and due to the cough being there for about a month chest x-ray requested. Orders: Orders RT home sleep study Today E66.01 - Morbid (severe) obesity due to excess calories XR chest 2V Today R05.9 - Cough, unspecified Medications: New semaglutide for 4 weeks 0.25 mg (0.368 mL) subcut QWEEK 3 mL 2RF E66.01 - Morbid (severe) obesity due to excess calories, Z68.43 - Body mass index [BMI] 50.0-59.9, adult fexofenadine (Jessica Allergy) 180 mg PO DAILY 30 tabs 2RF R05.9 - Cough, unspecified Discontinued tirzepatide (weight loss) (Zepbound) Discontinued Reason: Insurance Denied 2.5 mg (0.5 mL) subcut QWEEK 4 weeks 2 mL 0RF E66.01 - Morbid (severe) obesity due to excess calories, Z68.43 - Body mass index [BMI] 50.0-59.9, adult Coding Level of Care Code Est Pt Level 4 (39723) Diagnoses Gastroesophageal reflux disease without esophagitis K21.9 Esophagitis presence: without esophagitis Hypercholesterolemia E78.00 Morbid obesity with BMI of 50.0-59.9, adult E66.01; Z68.43 Insomnia G47.00 Cough R05.9
== END 2024-02-14 15:13 | disposition home or self-care (01) ==
PROVIDERS: PCP Internal Medicine; Visit Provider Internal Medicine
DX: K21.9 Gastro-esophageal reflux disease without esophagitis (principal); E66.01 Morbid (severe) obesity due to excess calories; Z68.43 Body mass index [BMI] 50.0-59.9, adult; E78.00 Pure hypercholesterolemia, unspecified; G47.00 Insomnia, unspecified; R05.9 Cough, unspecified
CPT/HCPCS: 99214

== ENCOUNTER 2024-02-14 15:17 | Outpatient (REF) | payer OTHER, SELFPAY ==
--- NOTE | ~2024-02-14 | XR_ITS ---
EXAMINATION: XR CHEST CLINICAL INFORMATION: Cough, patient states cough for one month. COMPARISON: 03/10/2019 TECHNIQUE: 2 views of the chest were obtained. FINDINGS: There is no gross pneumothorax. Lung volumes are low. No gross pleural effusion. No focal consolidation to suggest pneumonia. Redemonstration of air is seen. Kyphosis of the thoracolumbar spine with mild loss of height of lower thoracic vertebral bodies. Evaluation limited due to overlying soft tissues. XR/XR chest 2V IMPRESSION: 1. No evidence of pneumonia. 2. Redemonstration of air is seen. 3. Kyphosis of the thoracolumbar spine with mild loss of height of lower thoracic vertebral bodies. Evaluation limited due to overlying soft tissues.
== END 2024-02-14 15:18 | disposition home or self-care (01) ==
LOC: HO.XRAY 15:17
PROVIDERS: PCP Internal Medicine; Visit Provider Internal Medicine
DX: R05.9 Cough, unspecified (principal)
CPT/HCPCS: 71046

== ENCOUNTER → 2024-03-21 08:47 | Outpatient (REF) | payer OTHER, SELFPAY | LOC: HO.SL 08:47 | PROVIDERS: PCP Internal Medicine; Visit Provider Internal Medicine | DX: G47.33 Obstructive sleep apnea (adult) (pediatric) (principal); E66.01 Morbid (severe) obesity due to excess calories | CPT/HCPCS: 95806 ==

== ENCOUNTER → 2024-03-21 09:03 | Outpatient (BNV) | payer OTHER, SELFPAY | PROVIDERS: PCP Internal Medicine; Visit Provider Internal Medicine | DX: G47.33 Obstructive sleep apnea (adult) (pediatric) (principal) | CPT/HCPCS: 95806 ==

== ENCOUNTER 2024-06-30 14:26 | Outpatient (AMB) | payer OTHER, SELFPAY ==
[2024-06-30 14:27] VITALS: BP 136/80; PULSE 117; O2SAT 98; BMI 53.3
--- NOTE | 2024-06-30 14:27 | A.OFFPC_ITS ---
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 As for the cough patient was advised to get a chest x-ray and allergy medication to try. Review of the notes sleep study done March 21 2024 showing mild to moderate obstructive sleep apnea AHI of 18 advise CPAP therapy auto mode 6-15 cc. Chest x-ray negative patient states cough is a little bit better but declined anymore further workup. Otherwise no other complaints. As for the sleep apnea patient does admit to use it once in a while only as she is not be getting use to it. Discussed importance and the implications of cardiac function. [facility] Medical History (Updated 03/28/24 @ 19:03 by Charissa Adams MD) Valvular heart disease Left ankle sprain Left ankle injury Near syncope Cervical cancer screening Hypercholesterolemia Obesity GERD (gastroesophageal reflux disease) Migraine ADHD Vitamin D deficiency Surgical History H/O heart surgery Family History Father Diabetes Mother Diabetes Hypertension Maternal Aunt Pancreatic cancer Social History Housing: House Alcohol intake: never Patient Tobacco Use Status: Never used Tobacco Tobacco use type: Cigarette e-Cigarette/Vaping Use: Never Used Second Hand Smoke Exposure: No service: No Current occupational status: employed 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 1. Little interest or pleasure in doing things: not at all 2. Feeling down, depressed, or hopeless: not at all 3. Trouble falling or staying asleep, or sleeping too much: not at all 4. Feeling tired or having little energy: not at all 5. Poor appetite or overeating: not at all 6. Feeling bad about yourself - or that you are a failure or have let yourself or your family down: not at all 7. Trouble concentrating on things, such as reading the newspaper or watching television: not at all 8. Moving or speaking so slowly that other people could have noticed. Or the opposite - being so fidgety or restless that you have been moving around a lot more than usual: not at all 9. Thoughts that you would be better off or of hurting yourself in some way: not at all Total score: 0 Depression Screening Interpretation: Negative Depression Screening Done: Yes 92611 - PHQ-9 Billing: Yes Source: Developed by Drs. Godwin Fernandez, Sarah Arambula, Tony Kirkpatrick and colleagues, with an educational compa from [employer]. Thrive Questionnaire Date Thrive assessed: 11/01/23 Are you currently unemployed and looking for a job?: No AUDIT C Alcohol Use Questionnaire (AUDIT-C) 1. How often do you have a drink containing alcohol?: Never 2. How many drinks containing alcohol do you have on a typical day when you are drinking?: 1 or 2 3. How often do you have six or more drinks on one occasion?: Never Total Score: 0 Score Reviewed/Action Taken: No HEMANT-7 AMB Questionnaire HEMANT-7 Date HEMANT - 7 assessed: 11/01/23 Source: Developed by Drs. Godwin Fernandez, Sarah Arambula, Tony Kirkpatrick and colleagues, with an educational compa from [employer]. Physical exam (Primary Care) Vital Signs: Last Vital Signs Pulse 117 H 06/30/24 14:27 BP 136/80 06/30/24 14:27 Pulse Ox 98 06/30/24 14:27 Oxygen Delivery Method Room Air 06/30/24 14:27 BMI result Body Mass Index 53.3 Tobacco/Smoking Status: Tobacco use Status Tobacco use date assessed 02/14/24 06/30/24 14:31 Patient Tobacco Use Status Never used Tobacco 06/30/24 14:31 Tobacco use type Cigarette 06/30/24 14:31 e-Cigarette/Vaping Use Never Used 06/30/24 14:31 PHQ-9: PHQ-9 Score PHQ-9: Total score 0 06/30/24 14:58 Depression Screening Interpretation: Negative Thrive Assessment: Date of Thrive Assessment Date Thrive assessed 11/01/23 06/30/24 14:31 Const General: alert; No acute distress Eyes Conjunctivae: conjunctivae normal Resp Auscultation: clear to auscultation bilaterally Cardio Rate: regular rate Rhythm: regular rhythm GI Inspection: Yes normal to inspection Extrem General: Yes normal to inspection and No edema Office Procedures Flu Questionnaire Does the patient have a severe egg allergy?: No Does the patient have severe life threatening allergies?: No Does the patient have a fever or illness today?: No Has the patient ever had Guillain-Hutchinson Syndrome?: No Has the patient ever had any past reaction to a flu shot?: No Immunizations Fluarix Triv [id number] (PF) 45 mcg (15 mcg x 3)/0.5 mL IM syringe Performing Provider: Charissa Adams MD [facility] Administered by: BERNARDINO Madrigal on 06/30/24 15:13 Dose Route Admin Location Dispensed Lot Number Expiration Date [facility] Medical Scientific Liaison 0.5 mL IM Left Deltoid 0.5 mL [id number] 03/26/25 09695-132-21 [employer] VIS Given Date VIS Provided VIS Publication Date 06/30/24 Single Vaccine 21 Eligibility Eligibility Date Funding Source Not [facility] Eligible 06/30/24 Private Coding Level of Care Code Est Pt Level 4 (38132) Diagnoses Obstructive sleep apnea G47.33 Morbid obesity E66.01 Gastroesophageal reflux disease without esophagitis K21.9 Esophagitis presence: without esophagitis Hypercholesterolemia E78.00 Assessment & Plan Assessment & Plan (1) Obstructive sleep apnea: Comment: Sleep study done 03/21/2024 results showing mild to moderate obstructive sleep apnea AHI of 18 advised CPAP therapy auto PAP mode 6-15 cm Code(s): G47.33 - Obstructive sleep apnea (adult) (pediatric) Category: Medical Plan: Patient was advised to use the CPAP with auto PAP mode 6-15 cc humidified air. Discussion on the importance of using the CPAP. Patient is not use to it yet. (2) Morbid obesity: Comment: BMI of 50+ Code(s): E66.01 - Morbid (severe) obesity due to excess calories Category: Medical Plan: Continue with diet and exercise (3) GERD (gastroesophageal reflux disease): Code(s): K21.9 - Gastro-esophageal reflux disease without esophagitis Category: Medical Qualifiers: Esophagitis presence: without esophagitis Qualified Code(s): K21.9 - Gastro-esophageal reflux disease without esophagitis Plan: Avoid the foods that causes that usually spicy foods, tomato products, juices, coffee, soda and foods that your sensitive to. After eating do not lie down, allow 3-4 hours before in lie down. And keep the head of bed above 30 degrees to avoid the acid from going up. (4) Hypercholesterolemia: Code(s): E78.00 - Pure hypercholesterolemia, unspecified Category: Medical Plan: Avoid fried foods, chicken skin, eggs, butter margarine, pastries and meat. Be it pork or beef they have a lot of cholesterol Orders: Orders Comprehensive Met. Panel 4 Months E78.00 - Pure hypercholesterolemia, unspecified Thyroid Stimulating Hormone 4 Months E78.00 - Pure hypercholesterolemia, unspecified Free T4 (Free Thyroxine) 4 Months E78.00 - Pure hypercholesterolemia, unspecified Reticulocyte Count 4 Months E78.00 - Pure hypercholesterolemia, unspecified IRON PROFILE 4 Months E78.00 - Pure hypercholesterolemia, unspecified Influenza [id number] Immunization Today Z23 - Encounter for immunization Complete Blood Count Auto Diff 4 Months E78.00 - Pure hypercholesterolemia, unspecified Vitamin B12 and Folate 4 Months E78.00 - Pure hypercholesterolemia, unspecified Vitamin D 25-OH Total 4 Months E78.00 - Pure hypercholesterolemia, unspecified Medications: New Fluarix Triv [id number] (PF) (flu vacc [id number] 6mos up(PF)) 0.5 mL IM ONCE 0.5 mL 0RF NS Z23 - Encounter for immunization Discontinued semaglutide for 4 weeks Discontinued Reason: Insurance Denied 0.25 mg (0.368 mL) subcut QWEEK 3 mL 2RF E66.01 - Morbid (severe) obesity due to excess calories, Z68.43 - Body mass index [BMI] 50.0-59.9, adult
== END 2024-06-30 15:10 | disposition home or self-care (01) ==
PROVIDERS: PCP Internal Medicine; Visit Provider Internal Medicine
DX: G47.33 Obstructive sleep apnea (adult) (pediatric) (principal); E66.813 Obesity, class 3; Z68.43 Body mass index [BMI] 50.0-59.9, adult; Z23 Encounter for immunization; K21.9 Gastro-esophageal reflux disease without esophagitis; E78.00 Pure hypercholesterolemia, unspecified

== ENCOUNTER → 2024-06-30 14:26 | Outpatient (BNVA) | payer OTHER, SELFPAY | PROVIDERS: PCP Internal Medicine; Visit Provider Internal Medicine | DX: Z23 Encounter for immunization (principal); G47.33 Obstructive sleep apnea (adult) (pediatric); E66.01 Morbid (severe) obesity due to excess calories; K21.9 Gastro-esophageal reflux disease without esophagitis; E78.00 Pure hypercholesterolemia, unspecified | CPT/HCPCS: 90471; 90656; 96127; 99212 ==

== ENCOUNTER 2024-09-13 10:37 | Outpatient (AMB) | payer OTHER, SELFPAY ==
[2024-09-13 10:47] VITALS: BP 138/108; PULSE 92; O2SAT 99; BMI 54.8
--- NOTE | 2024-09-13 10:47 | MHC.PC.OV ---
Vital Signs 09/13/24 10:47 Height 5 ft 3 in Weight 309 lb 8 oz BMI 54.8 BP 138/108 H Blood Pressure Location Lt brachial Position Sitting Pulse 92 Pulse Source Pulse Oximeter Pulse Oximetry (%) 99 Oxygen Delivery Method Room Air Intake Visit Reasons: Urgent Care f/u 08/31/24 Tool Operator Required: No Accompanied by: Self / Same As Patient Allergies No Known Allergies [No Known Allergies*] Allergy (Verified 09/13/24 10:52) Tobacco use date assessed: 02/14/24 Dental Screening Dental Screen Date: 11/01/23 HPI Urgent Care f/u 08/31/24 HPI Details The patient is a 29-year-old female presenting with a persistent cough and chest discomfort. The condition began around August 31, when the patient visited the urgent care and was diagnosed with bronchitis. She was treated with prednisone and another unspecified cough medication. Though the initial medication course was completed, the cough persists, particularly worsening at night, accompanied by chest discomfort. The patient denies having fever, wheezing, sore throat, or nasal congestion but reports fatigue and increased urinary frequency. There is no report of diarrhea, pain during urination, or ear pain. The patient has no history of annual allergies and is not taking vitamin D supplements despite a previously noted deficiency. She attributes the onset of symptoms to getting wet during a [facility] [place]. Previous chest X-rays taken at the urgent care showed no significant findings. The patient experiences postnasal drip at varying times, needing to spit following coughs. No other family members are reportedly sick, and there is no exposure to children. [facility] Medical History (Updated 09/13/24 @ 11:11 by Charissa Adams MD) Valvular heart disease Left ankle sprain Left ankle injury Near syncope Cervical cancer screening Hypercholesterolemia Obesity GERD (gastroesophageal reflux disease) Migraine ADHD Vitamin D deficiency Surgical History H/O heart surgery Family History Father Diabetes Mother Diabetes Hypertension Maternal Aunt Pancreatic cancer Social History Housing: House Alcohol intake: never Patient Tobacco Use Status: Never used Tobacco Tobacco use type: Cigarette e-Cigarette/Vaping Use: Never Used Second Hand Smoke Exposure: No service: No Current occupational status: employed 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 Godwin Fernandez, Sarah Arambula, Tony Kirkpatrick and colleagues, with an educational compa from [facility]. Physical exam (Primary Care) Vital Signs: Last Vital Signs Pulse 92 09/13/24 10:47 BP 138/108 H 09/13/24 10:47 Pulse Ox 99 09/13/24 10:47 Oxygen Delivery Method Room Air 09/13/24 10:47 BMI result Body Mass Index 54.8 Tobacco/Smoking Status: Tobacco use Status Tobacco use date assessed 02/14/24 09/13/24 10:47 Patient Tobacco Use Status Never used Tobacco 09/13/24 10:47 Tobacco use type Cigarette 09/13/24 10:47 e-Cigarette/Vaping Use Never Used 09/13/24 10:47 Thrive Assessment: Date of Thrive Assessment Date Thrive assessed 11/01/23 09/13/24 10:47 Const General: alert; No acute distress Eyes Conjunctivae: conjunctivae normal Chest Other: rhon chi noted , no wheezing , or crackles Resp Auscultation: clear to auscultation bilaterally Cardio Rate: regular rate Rhythm: regular rhythm GI Inspection: Yes normal to inspection Extrem General: Yes normal to inspection and No edema Coding Level of Care Code Est Pt Level 4 (68979) Diagnoses Obstructive sleep apnea G47.33 Morbid obesity E66.01 Gastroesophageal reflux disease without esophagitis K21.9 Esophagitis presence: without esophagitis Vitamin D deficiency E55.9 Acute bronchitis, unspecified organism J20.9 Bronchitis organism: unspecified organism Assessment & Plan Assessment & Plan (1) Obstructive sleep apnea: Comment: Sleep study done 03/21/2024 results showing mild to moderate obstructive sleep apnea AHI of 18 advised CPAP therapy auto PAP mode 6-15 cm Code(s): G47.33 - Obstructive sleep apnea (adult) (pediatric) Category: Medical Plan: Advised to continue on with the CPAP more than 4 hours a night and benefits from this (2) Morbid obesity: Comment: BMI of 50+ Code(s): E66.01 - Morbid (severe) obesity due to excess calories Category: Medical Plan: Diet and exercise (3) GERD (gastroesophageal reflux disease): Code(s): K21.9 - Gastro-esophageal reflux disease without esophagitis Category: Medical Qualifiers: Esophagitis presence: without esophagitis Qualified Code(s): K21.9 - Gastro-esophageal reflux disease without esophagitis Plan: Avoid the foods that causes that usually spicy foods, tomato products, juices, coffee, soda and foods that your sensitive to. After eating do not lie down, allow 3-4 hours before in lie down. And keep the head of bed above 30 degrees to avoid the acid from going up. (4) Vitamin D deficiency: Code(s): E55.9 - Vitamin D deficiency, unspecified Category: Medical Plan: Continue with vitamin-D 8512-8489 units once a day (5) Acute bronchitis: Code(s): J20.9 - Acute bronchitis, unspecified Category: Medical Qualifiers: Bronchitis organism: unspecified organism Qualified Code(s): J20.9 - Acute bronchitis, unspecified Plan: antibiotic script sent in Orders: Orders XR chest 2V Today J20.9 - Acute bronchitis, unspecified Medications: New azithromycin (Zithromax) For 250 mg dose pack: take 500 mg today (day 1), then 250 mg for 4 days (days 2-5) PO 6 tabs 0RF J20.9 - Acute bronchitis, unspecified Scribe Plan - Not visible on output: - Prescribe Zithromax for the treatment of acute bronchitis with initial loading dose of two tablets followed by one tablet for four days. - Recommend [id number] antitussive, such as Delsym, to manage dry cough symptoms, with specific dosing instructions for nighttime use. - Advise the use of Mucinex if productive cough with phlegm is experienced, emphasizing the supportive role of these medications. - Encourage increased fluid intake to assist with symptomatic relief and overall hydration. - Remind the patient to resume vitamin D supplementation due to previous deficiency findings. - Instruct the patient that if symptoms persist or worsen, a follow-up chest X-ray is warranted, as a previously inconclusive result requires monitoring for any new developments.
== END 2024-09-13 11:13 | disposition home or self-care (01) ==
PROVIDERS: PCP Internal Medicine; Visit Provider Internal Medicine
DX: G47.33 Obstructive sleep apnea (adult) (pediatric) (principal); E66.01 Morbid (severe) obesity due to excess calories; Z68.43 Body mass index [BMI] 50.0-59.9, adult; K21.9 Gastro-esophageal reflux disease without esophagitis; E55.9 Vitamin D deficiency, unspecified; J20.9 Acute bronchitis, unspecified

== ENCOUNTER → 2024-09-13 10:37 | Outpatient (BNVA) | payer OTHER, SELFPAY | PROVIDERS: PCP Internal Medicine; Visit Provider Internal Medicine | DX: G47.33 Obstructive sleep apnea (adult) (pediatric) (principal); E66.01 Morbid (severe) obesity due to excess calories; Z68.43 Body mass index [BMI] 50.0-59.9, adult; K21.9 Gastro-esophageal reflux disease without esophagitis; E55.9 Vitamin D deficiency, unspecified; J20.9 Acute bronchitis, unspecified; Z71.3 Dietary counseling and surveillance | CPT/HCPCS: 99212 ==

== ENCOUNTER 2024-09-14 15:00 | Outpatient (REF) | payer OTHER, SELFPAY ==
--- NOTE | ~2024-09-14 | XR_ITS ---
EXAMINATION: XR CHEST CLINICAL INFORMATION: J20.9 - Acute bronchitis, unspecified COMPARISON: 02/14/2024 TECHNIQUE: 2 views of the chest were obtained. FINDINGS: No significant abnormality is noted involving the heart, lungs, mediastinum, bony thorax or soft tissues. XR/XR chest 2V IMPRESSION: Unremarkable examination. Electronically signed by: Gilbert Rodriguez MD 09/17/2024 10:15 AM [facility]
== END 2024-09-14 15:01 | disposition home or self-care (01) ==
LOC: HO.XRAY 15:00
PROVIDERS: PCP Internal Medicine; Visit Provider Internal Medicine
DX: J20.9 Acute bronchitis, unspecified (principal)
CPT/HCPCS: 71046

== ENCOUNTER 2024-10-31 09:11 | Outpatient (REF) | payer OTHER, SELFPAY ==
--- OUTSIDE RECORDS SUMMARY | 2024-10-31 09:38 | XMS_ITS | Encounter Summary ---
Author Organization [facility] Address [address] [place] [address] Phone Care Team Providers Care Executive Producer Name Role Phone Briseyda Latif MD Primary Care Provider [phone] Encounter Details Date Type Department Care Team (Late st Contact Info) Description 02/07/2014 Documentation [facility] Family Medicine [address] [place] [address] Family Medicine, Physician [address] [place], [place] [phone] Social History Tobacco Use Types Packs/Day Years Used Date Smoking Tobacco: Never Assessed Comments Unknown Sex and Gender Information Value Date Recorded Sex Assigned at Not on file Legal Sex Female 4:59 PM EDT Gender Identity Not on file Sexual Orientation Not on file documented as of this encounter Plan of Treatment Not on file documented as of this encounter Visit Diagnoses Not on filedocumented in this encounter Care Teams Executive Producer Relationship Specialty Start Date End Date Briseyda Latif MD [address] [place], [place] [address]JENNIFER [address] PCP - General 05/07/17 11/11/22 documented as of this encounter
--- OUTSIDE RECORDS SUMMARY | 2024-10-31 09:38 | XMS_ITS | Encounter Summary ---
Author Organization [facility] Address [address] [place] [address] Phone Care Team Providers Care Behavioral Scientist Name Role Phone Briseyda Latif MD Primary Care Provider [phone] Encounter Details Date Type Department Care Team (Late st Contact Info) Description 12/20/2012 Documentation EM Family Medicine [address] [place] [address] Family Medicine, Physician [address] [place], [place] [phone] Social History Tobacco Use Types Packs/Day Years [...] on filedocumented in this encounter Care Teams Behavioral Scientist Relationship Specialty Start Date End Date Briseyda Latif MD [address] [place], [place] [address]JENNIFER [address] PCP - General 05/07/17 11/11/22 documented as of this encounter
--- OUTSIDE RECORDS SUMMARY | 2024-10-31 09:38 | XMS_ITS | Encounter Summary ---
Author Organization [facility] Address [address] [place] [address] Phone Care Team Providers Care Pneumatic Hoist Operator Name Role Phone Briseyda Latif MD Primary Care Provider Encounter Details Date Type Department Care Team (Late st Contact Info) Description 02/05/2010 Documentation EM Family Medicine [address] [place] [address] Family Medicine, Physician [address] [place], [place] [phone] Social History Tobacco Use Types Packs/Day Years [...] on filedocumented in this encounter Care Teams Pneumatic Hoist Operator Relationship Specialty Start Date End Date Briseyda Latif MD [address] [place], [place] [address]JENNIFER [address] PCP - General 05/07/17 11/11/22 documented as of this encounter
--- OUTSIDE RECORDS SUMMARY | 2024-10-31 09:38 | XMS_ITS | Clinical Summary ---
Author Organization [employer] Address [address] [place] [address] 7 [place] [address] Care Team Providers Care Yard Conductor Name Role Phone Unavailable Primary Care Provider Unavailabl e Allergies No known active allergies Medications doxepin (SINEquan) 10 MG capsule Take 10 mg by mouth at bedtime. Active omeprazole (PriLOSEC) [address] capsule Take 20 mg by mouth before breakfast. Do not crush or chew. Active cyclobenzaprine (Flexeril) 5 MG tablet Take by mouth. Active ergocalciferol (Vitamin D-2) 1.25 MG (52794 UT) capsule Take 1.25 mg by mouth 1 (one) time per week. Active Social History Tobacco Use Types Packs/Day Years Used Date Smoking Tobacco: Never Smokeless Tobacco: Never Tobacco Cessation:Counseling Given: Not Answered Comments Unknown Sex and Gender Information Value Date Recorded Sex Assigned at Female 05/06/2023 4:06 PM EDT Legal Sex Female 3:54 PM EDT Gender Identity Female 05/06/2023 4:06 PM EDT Sexual Orientation Don't know 05/06/2023 4: 06 PM EDT Last Filed Vital Signs Vital Sign Reading Time Taken Comments Blood Pressure 126/86 06/29/2024 2:59 PM EDT Pulse 105 06/29/2024 2:59 PM EDT Temperature - - Respiratory Rate - - Oxygen Saturation - - Inhaled Oxygen Concentration - - Weight - - Height - - Body Mass Index - - Plan of Treatment Upcoming Encounters Date Type Department Care Team (Late st Contact Info) Description 01/01/2025 3:00 PM EDT Office Visit [facility] [address] [place] [address] Jackie Anna [address] [place] [address] Health Maintenance Due Date Last Done Comments Depression Screening 1994 HIV Screening 1994 Lipid Panel 1994 SDOH Screening 1994 Alcohol/Substance Use Screening 2006 Family Planning (PISQ) 2009 Hepatitis C Screening 2012 Pap Smear 2015 Cervical Cancer Screening 2024 HPV/Cotest 2024 COVID-19 Vaccine ( season) 2024 07/22/2021, 07/01/2021 Influenza Vaccine (#1) 2024 , 08/06/2022, 08/04/2021, Additional history exists Dental Oral Exam 12/29/2024 06/29/2024, , 05/17/2023 Dental Prophylaxis 12/29/2024 06/29/2024, 0 12/21/2023, 06/08/2023 Tobacco Screening 06/29/2025 06/29/2024 Dental X-Ray: Bitewings 06/30/2025 06/29/2024 Dental X-Ray: Full Mouth 05/18/2026 05/17/2023 DTaP/Tdap/Td Vaccines (7 - Td or Tdap) 11/17/2026 11/17/2016, 01/06/2007, 12/25/1998, Additional history exists Zoster Vaccines (1 of 2) 2044 RSV Patients and Patients Aged 60 years or older (1 - 1-dose 75+ series) 2069 Hepatitis B Vaccines Completed 02/24/1995, 1994, 1994 HIB Vaccines Completed 08/26/1995, 01/27, 1994, Additional history exists IPV Vaccines Completed 05/27/1998, 01/27, 1994, Additional history exists Meningococcal Vaccine Aged Out 01/06/2007 No kal yelena eligible based on patient's age to complete this topic HPV Vaccines Completed 11/17/2007, 04/29, 03/25/2007 Hepatitis A Vaccines Aged Out 08/15/2014 No long er eligible based on patient's age to complete this topic Pneumococcal Vaccine: Pediatrics (0 to 5 Years) and At-Risk Patients (6 to 49) Years) Aged Out No longer eligible based on patient's age to complete this topic RSV under 20 months Aged Out No longe r eligible based on patient's age to complete this topic Rotavirus Vaccines Aged Out No longer eligible based on patient's age to complete this topic Procedures Procedure Name Priority Date/Time Associated Diagnosis Comments PROPHYLAXIS - ADULT Routine 06/29/2024 3 :00 PM EDT BITEWINGS - 2 RADIOGRAPHIC IMAGES Routine 06/29/2024 3:00 PM EDT PERIODIC ORAL EVALUATION - ESTABLISHED PATIENT Routine 06/29/2024 3:00 PM EDT PANORAMIC RADIOGRAPHIC IMAGE Routine 05/17/2023 8:00 AM EDT Encounter for dental examination from Last 3 Months or Most Recently Relevant to Health Maintenance Insurance [facility] [employer] [place]
--- OUTSIDE RECORDS SUMMARY | 2024-10-31 09:38 | XMS_ITS | Encounter Summary ---
Author Organization [facility] Address [address] [place] [address] Phone Care Team Providers Care President [employer] Company Name Role Phone Briseyda Latif MD Primary Care Provider [phone] Encounter Details Date Type Department Care Team (Late st Contact Info) Description 09/07/2014 Documentation [facility] [place] [address] [place] [address] Family Medicine, Physician [address] [place], [place] [phone] Social History Tobacco Use Types Packs/Day Years Used Date Smoking Tobacco: Never Comments:Never smoker Comments Unknown Sex and Gender Information Value Date Recorded Sex Assigned at Not on file Legal Sex Female 4:59 PM EDT Gender Identity Not on file Sexual Orientation Not on file documented as of this encounter Plan of Treatment Not on file documented as of this encounter Visit Diagnoses Not on filedocumented in this encounter Care Teams President [employer] Relationship Specialty Start Date End Date Briseyda Latif MD [address] [place], [place] [address]J[place]ER [address] PCP - General 05/07/17 11/11/22 documented as of this encounter
--- OUTSIDE RECORDS SUMMARY | 2024-10-31 09:38 | XMS_ITS | Clinical Summary ---
Author Organization [facility] Address [address] [place] [address] Phone Care Team Providers Care Card Puncher Name Role Phone Unavailable Primary Care Provider Unavailabl e Immunizations Name Administration Dates Next Due DTaP 5 12/25/1998, 5,01/24/1995, 995,1994 H1N1 07/30/2009 HPV, Quadrivalent 11/17/2007,05/27/2007,03/25/20 07 Hep A, Adult 08/15/2014 Hep B, ped/adol 02/24/1995,1994,1994 Hib (PRP-T) 08/26/1995, 5,1994, 994 IPV 05/27/1998, 5,1994, 994 Influenza Split 08/04/2013, 2,06/11/2011, 010 Influenza, injectable, quadrivalent 07/31/2014 Influenza, injectable, trivalent 09/24/2009,1209/2007 MMR 12/25/1998,06/26/1995 Meningococcal Conj (Menactra) MCV4P 01/06/2007 Tdap 01/06/2007 Varicella 08/27/2008,12/26/1995 Family History Relation Name Status Comments Father Father: Hyperli pidemia, Hypertension Mother Alive Mother: Hyperte nsion , Asthma Other Family history of Asthma, Family history of Diabetes mellitus, No family history of *Thrombophilia Sister Alive Sister: Migrain es, Asthma, Seizure disorder, Alive and well, Asthma, Asthma Social History Tobacco Use Types Packs/Day Years Used Date Smoking Tobacco: Never Comments:Never smoker Comments Unknown Sex and Gender Information Value Date Recorded Sex Assigned at Not on file Legal Sex Female 4:59 PM EDT Gender Identity Not on file Sexual Orientation Not on file Last Filed Vital Signs Vital Sign Reading Time Taken Comments Blood Pressure 121/78 10/04/2014 12:00 AM EST Pulse 88 10/04/2014 12:00 AM EST Temperature 37.1 ??C (98.8 ??F) 08/02/2014 12:[address] Respiratory Rate - - Oxygen Saturation 97% 01/25/2014 12:00 AM EDT Inhaled Oxygen Concentration - - Weight 112 kg (248 lb) 10/04/2014 12:00 AM EST Height 159.3 cm (5' 2.7 ) 09/26/2014 12:00 AM ES T Body Mass Index 44.35 09/26/2014 12:00 AM EST Plan of Treatment Health Maintenance Due Date Last Done Comments DTaP,Tdap,and Td Vaccines (6 - Td or Tdap) 01/06/2017 01/06/2007, 12/25/1998, 02/24/1995, Additional history exists Influenza Vaccines (#1) 2024 07/31/20 14, 08/04/2013, 05/26/2012, Additional history exists COVID-19 Vaccine ( season) 2024 Hepatitis B Vaccines Completed 02/24/1995, 1994, 1994 HIB Vaccines Completed 08/26/1995, 01/27, 1994, Additional history exists IPV Vaccines Completed 05/27/1998, 01/27, 1994, Additional history exists MMR Vaccines Completed 12/25/1998, 06/26/1995 Meningococcal Vaccine Aged Out 01/06/2007 No kal yelena eligible based on patient's age to complete this topic HPV Vaccines Completed 11/17/2007, 04/29, 03/25/2007 Varicella Vaccines Completed 08/27/2008, 12/26/1995 Hepatitis A Vaccines Aged Out 08/15/2014 No long er eligible based on patient's age to complete this topic Men B Vaccine Aged Out No longer elig ible based on patient's age to complete this topic Pneumococcal Vaccine Aged Out No long er eligible based on patient's age to complete this topic
--- OUTSIDE RECORDS SUMMARY | 2024-10-31 09:38 | XMS_ITS | Clinical Summary ---
Author Organization [facility] Address [address] [place] [address] Care Team Providers Care Quarter Inspector Name Role Phone Unavailable Primary Care Provider Unavailabl e Social History Tobacco Use Types Packs/Day Years Used Date Smoking Tobacco: Never Assessed Sex and Gender Information Value Date Recorded Sex Assigned at Not on file Gender Identity Not on file Sexual Orientation Not on file Plan of Treatment Health Maintenance Due Date Last Done Comments DTaP,Tdap,and Td Vaccines (1 - Tdap) 2013 Hepatitis B Vaccines (1 of 3 - 19+ 3-dose series) 2013 Cervical Cancer Screening: P ap Smear 2015 COVID-19 Vaccine (2023-2 5 season) 2024 Influenza Vaccine (#1) 2024 HIB Vaccines Aged Out No longer eligi ble based on patient's age to complete this topic HPV Vaccines Aged Out No longer eligi ble based on patient's age to complete this topic Hepatitis A Vaccines Aged Out No long er eligible based on patient's age to complete this topic IPV Vaccines Aged Out No longer eligi ble based on patient's age to complete this topic MMR Vaccines Aged Out No longer eligi ble based on patient's age to complete this topic Meningococcal ACWY Vaccine Aged Out N o longer eligible based on patient's age to complete this topic Pneumococcal Vaccine: Pediat rics (0 to 5 Years) and At-Risk Patients (6 to 64 Years) Aged Out No longer eligible b ased on patient's age to complete this topic RSV Immunization Patients Un carly 20 months Aged Out No longer eligible b ased on patient's age to complete this topic Varicella Vaccines Aged Out No longer eligible based on patient's age to complete this topic
--- OUTSIDE RECORDS SUMMARY | 2024-10-31 09:38 | XMS_ITS | Encounter Summary ---
Author Organization [facility] Address [address] [place] [address] Phone Care Team Providers Care Oven Laborer Name Role Phone Briseyda Latif MD Primary Care Provider [phone] Encounter Details Date Type Department Care Team (Late st Contact Info) Description 05/13/2017 Conversion Encounter [facility] [place] [address] [place] [address] Social History Tobacco Use Types Packs/Day Years [...] on filedocumented in this encounter Care Teams Oven Laborer Relationship Specialty Start Date End Date Briseyda Latif MD [address] [place] [address] PCP - General 05/07/17 11/11/22 documented as of this encounter
--- OUTSIDE RECORDS SUMMARY | 2024-10-31 09:38 | XMS_ITS | Encounter Summary ---
Author Organization [facility] Address [address] [place] [address] Phone Care Team Providers Care Trimming Cutter Machine Name Role Phone Briseyda Latif MD Primary Care Provider [phone] Encounter Details Date Type Department Care Team (Late st Contact Info) Description 07/31/2014 Documentation EM Family Medicine [address] [place] [address] Family Medicine, Physician [address] [place], [place] [phone] Social History Tobacco Use Types Packs/Day Years [...] on filedocumented in this encounter Care Teams Trimming Cutter Machine Relationship Specialty Start Date End Date Briseyda Latif MD [address] [place], [place] [address]J[place]ER [address] PCP - General 05/07/17 11/11/22 documented as of this encounter
[2024-10-31 10:40] LABS: MANUAL DIFF FLAG NO
[2024-10-31 10:59] LABS: Basophils Percent Auto 0.4 % (0-2); Eosinophils Absolute Auto 0.1 X10*3/uL (0.0-0.4); Eosinophils Percent Auto 0.8 % (0-4); Hematocrit 41.3 % (37.0-47.0); Imm Gran Abs Auto 0.02 X10*3/uL (0.00-0.03); Imm Gran Pct Auto 0.2 % (0.0-0.4); Immature Retic Fraction 17.4 % (3.0-15.9); Lymphocytes Absolute Auto 2.3 X10*3/uL (1.2-4.9); Lymphocytes Percent Auto 27.4 % (20-40); Mean Corpuscular HGB Conc 31.5 g/dl (31.0-35.0); Mean Corpuscular Hemoglobin 26.5 pg (27.0-33.0); Mean Corpuscular Volume 84.3 fL (80.0-98.0); Mean Platelet Volume 10.7 fL (9.4-12.3); Monocytes Absolute Auto 0.6 X10*3/uL (0.1-1.2); Monocytes Percent Auto 7.1 % (2-11); Neutrophils Absolute Auto 5.3 x10*3/uL (2.0-8.3); Neutrophils Percent Auto 64.1 % (45-73); Platelet Count 388 X10*3/uL (160-400); Red Cell Distribution Width 14.5 % (11.0-16.0); Retic HGB Equivalent 30.9 pg (30.0-35.0); Reticulocyte Percent 1.5 % (0.5-1.8); Reticulocytes Absolute 0.072 X10*6/uL (0.026-0.095); White Blood Count 8.3 X10*3/uL (4.8-10.8)
[2024-10-31 11:32] LABS: Alanine Aminotransferase 28 U/L (0-31); Albumin Level 3.8 g/dL (3.5-5.0); Alkaline Phosphatase 125 U/L (39-117); Anion Gap 14 (12-20); Aspartate Amino Transferase 19 U/L (5-31); Bilirubin Total 0.2 mg/dL (0.0-1.0); Blood Urea Nitrogen 13 mg/dL (9-16); Calcium 8.5 mg/dL (8.4-10.2); Carbon Dioxide 24 mmol/L (22-29); Chloride 110 mmol/L (96-108); Estimated Glomerular Filt Rate > 60; Glucose Random 93 mg/dL (60-115); Iron 37 mcg/dL (30-160); Percent Iron Saturation 12 % (15-50); Potassium 4.3 mmol/L (3.3-5.1); Sodium 144 mmol/L (135-145); Total Iron Binding Capacity 305 mcg/dL (228-428); Total Protein 6.9 g/dL (6.5-8.0); Unsaturated Iron Binding 268 ug/dL
[2024-10-31 11:37] LABS: Free T4 (Free Thyroxine) 1.02 ng/dL (0.71-1.85); Thyroid Stimulating Hormone 1.36 uIU/mL (0.32-4.0); Vitamin D 25-OH Total 11.1 ng/mL (>30)
[2024-10-31 11:49] LABS: Folate 8.8 ng/mL (> or = 4.0); Vitamin B12 251 pg/mL (200-900)
== END 2024-10-31 09:12 | disposition home or self-care (01) ==
LOC: HO.HMGCLDS 09:11
PROVIDERS: PCP Internal Medicine; Visit Provider Internal Medicine
DX: E78.00 Pure hypercholesterolemia, unspecified (principal)
CPT/HCPCS: 36415; 80053; 82306; 82607; 82746; 83540; 84439; 84443; 85025; 85045

== ENCOUNTER → 2024-11-03 14:54 | Outpatient (BNVA) | payer OTHER, SELFPAY | PROVIDERS: PCP Internal Medicine; Visit Provider Internal Medicine | DX: Z00.00 Encounter for general adult medical examination without abnormal findings (principal); E66.01 Morbid (severe) obesity due to excess calories; G47.33 Obstructive sleep apnea (adult) (pediatric); E78.00 Pure hypercholesterolemia, unspecified; K21.9 Gastro-esophageal reflux disease without esophagitis | CPT/HCPCS: 96127; 99395 ==

== ENCOUNTER 2025-02-02 14:46 | Outpatient (AMB) | payer OTHER, SELFPAY ==
--- OUTSIDE RECORDS SUMMARY | 2025-02-02 14:49 | XMS_ITS | Encounter Summary ---
Author Organization [facility] Address [address] [place] [address] Phone Care Team Providers Care Scrap Wheeler Name Role Phone Briseyda Latif MD Primary Care Provider [phone] Encounter Details Date Type Department Care Team (Late st Contact Info) Description 07/31/2014 Documentation EM Family Medicine [address] [place] [address] Family Medicine, Physician [address] [place], [place] [phone] Social History Tobacco Use Types Packs/Day Years [...] on filedocumented in this encounter Care Teams Scrap Wheeler Relationship Specialty Start Date End Date Briseyda Latif MD [address] [place], [place] [address]J[place]ER [address] PCP - General 05/07/17 11/11/22 documented as of this encounter
--- OUTSIDE RECORDS SUMMARY | 2025-02-02 14:49 | XMS_ITS | Clinical Summary ---
Author Organization [employer] Address [address] [place] [address] [address] [place] [address] Care Team Providers Care Environmental Health Safety Engineer Name Role Phone Unavailable Primary Care Provider Unavailabl e Allergies No known active allergies Medications doxepin (SINEquan) 10 MG capsule Take 10 mg by mouth at bedtime. Active omeprazole (PriLOSEC) [address] capsule Take 20 mg by mouth before breakfast. Do not crush or chew. Active cyclobenzaprine (Flexeril) 5 MG tablet Take by mouth. Active ergocalciferol (Vitamin D-2) 1.25 MG (06509 UT) capsule Take 1.25 mg by mouth 1 (one) time per week. Active Encounters Date Type Department Care Team Description 01/01/2025 3:00 PM EDT Office Visit [facility] D[facility]AL [address] [place] [address] Jackie Anna from Last 3 Months Social History Tobacco Use Types Packs/Day Years [...] Sign Reading Time Taken Comments Blood Pressure 140/82 01/01/2025 3:17 PM EDT Pulse 71 01/01/2025 3:17 PM EDT Temperature - - Respiratory Rate - - Oxygen Saturation - - Inhaled Oxygen Concentration - - Weight - - Height - - Body Mass Index - - Plan of Treatment Upcoming Encounters Date Type Department Care Team (Late st Contact Info) Description 07/05/2025 3:00 PM EDT Office Visit [facility] [address] [place] [address] Jackie Anna [address] [place] [address] Health Maintenance Due Date Last Done Comments Depression Screening 1994 HIV Screening 1994 Lipid Panel 1994 SDOH Screening 1994 Alcohol/Substance Use Screening 2006 Family Planning (PISQ) 2009 Hepatitis C Screening 2012 Pap Smear 2015 Cervical Cancer Screening 2024 HPV/Cotest 2024 COVID-19 Vaccine ( season) 2024 07/22/2021, 07/01/2021 Dental X-Ray: Bitewings 06/30/2025 06/29/2024 Dental Oral Exam 07/04/2025 01/01/2025, 11/2023, 12/21/2023, Additional history exists Dental Prophylaxis 07/04/2025 01/01/2025, 1 , 12/21/2023, Additional history exists Tobacco Screening 01/01/2026 01/01/2025 Dental X-Ray: Full Mouth 05/18/2026 05/17/2023 DTaP/Tdap/Td [...] on patient's age to complete this topic Influenza Vaccine Completed 06/30/2024, , 08/06/2022, Additional history exists Pneumococcal Vaccine: Pediatrics (0 to 5 Years) [...] Procedure Name Priority Date/Time Associated Diagnosis Comments PERIODIC ORAL EVALUATION - ESTABLISHED PATIENT Routine 01/01/2025 3:00 PM EDT PROPHYLAXIS - ADULT Routine 01/01/2025 3 :00 PM EDT CASE PRESENTATION, DETAILED AND EXTENSIVE TREATMENT PLANNING Routine 01/01/2025 3:00 PM EDT BITEWINGS - 2 RADIOGRAPHIC IMAGES Routine 06/29/2024 3:00 PM EDT PANORAMIC RADIOGRAPHIC IMAGE Routine 05/17/2023 8:00 AM EDT Encounter for dental examination from Last 3 Months or Most Recently Relevant to Health Maintenance Insurance [facility] [employer] [place]
--- OUTSIDE RECORDS SUMMARY | 2025-02-02 14:49 | XMS_ITS | Encounter Summary ---
Author Organization [facility] Address [address] [place] [address] Phone Care Team Providers Care Electrical System Specialist Name Role Phone Briseyda Latif MD Primary Care Provider [phone] Encounter Details Date Type Department Care Team (Late st Contact Info) Description 02/07/2014 Documentation EM Family Medicine [address] [place] [address] Family Medicine, Physician [address] [place], [place] [phone] Social History Tobacco Use Types Packs/Day Years [...] on filedocumented in this encounter Care Teams Electrical System Specialist Relationship Specialty Start Date End Date Briseyda Ltaif MD [address] [place], [place] [address]JENNIFER [address] PCP - General 05/07/17 11/11/22 documented as of this encounter
--- OUTSIDE RECORDS SUMMARY | 2025-02-02 14:49 | XMS_ITS | Encounter Summary ---
Author Organization [facility] Address [address] [place] [address] Phone Care Team Providers Care Linter Saw Sharpener Name Role Phone Briseyda Latif MD Primary Care Provider [phone] Encounter Details Date Type Department Care Team (Late st Contact Info) Description 09/07/2014 Documentation [facility] [place] [address] [place] [address] Family Medicine, Physician [address] [place], [place] [phone] Social History Tobacco Use Types Packs/Day Years [...] on filedocumented in this encounter Care Teams Linter Saw Sharpener Relationship Specialty Start Date End Date Briseyda Latif MD [address] [place], [place] [address]JENNIFER [address] PCP - General 05/07/17 11/11/22 documented as of this encounter
--- OUTSIDE RECORDS SUMMARY | 2025-02-02 14:50 | XMS_ITS | Encounter Summary ---
Author Organization [facility] Address [address] [place] [address] Phone Care Team Providers Care Leather Whitener Name Role Phone Briseyda Latif MD Primary Care Provider [phone] Encounter Details Date Type Department Care Team (Late st Contact Info) Description 12/20/2012 Documentation EM Family Medicine [address] [place] [address] Family Medicine, Physician [address] [place], [place] [phone] Social History Tobacco Use Types Packs/Day Years [...] on filedocumented in this encounter Care Teams Leather Whitener Relationship Specialty Start Date End Date Briseyda Latif MD [address] [place], [place] [address]JENNIFER [address] PCP - General 05/07/17 11/11/22 documented as of this encounter
--- OUTSIDE RECORDS SUMMARY | 2025-02-02 14:50 | XMS_ITS | Clinical Summary ---
Author Organization [facility] Address [address] [place] [address] Phone Care Team Providers Care Supervisor Fruit Grading Name Role Phone Charissa Adams MD Primary Care Provider [phone] Allergies No known active allergies Medications No known medications Encounters Date Type Department Care Team Description 01/23/2025 3:15 PM EDT Consult Orthopedic [address] [phone] Marvin Estes, DPM Pain in left ankle and joints of left foot from Last 3 Months Social History Tobacco Use Types Packs/Day Years Used Date Smoking Tobacco: Never Assessed Comments Unknown Sex and Gender Information Value Date Recorded Sex Assigned at Female 01/24/2025 10:43 AM EDT Legal Sex Female 9:59 AM EST Gender Identity Female 01/24/2025 10:43 AM EDT Sexual Orientation Straight 01/24/2025 10 :43 AM EDT Last Filed Vital Signs Vital Sign Reading Time Taken Comments Blood Pressure - - Pulse - - Temperature - - Respiratory Rate - - Oxygen Saturation - - Inhaled Oxygen Concentration - - Weight 141 kg (311 lb) 01/23/2025 3:42 PM EDT Height 160 cm (5' 3 ) 01/23/2025 3:42 PM EDT Body Mass Index 55.09 01/23/2025 3:42 PM EDT Plan of Treatment Upcoming Encounters Date Type Department Care Team ([facility] st Contact Info) Description 02/27/2025 1:45 PM EDT Office Visit Orthopedic Surgery [place] [phone] [phone] Marvin Estes, DPM [address] [address] Health Maintenance Due Date Last Done Comments Cervical Cancer Screening: Pap Smear 2015 COVID-19 Vaccine ( season) 2024 07/22/2021, 07/01/2021 Cholesterol Screening (Lipid Panel) 11/20/2024 Depression Screening 11/20/2024 HIV Screening 11/20/2024 Hepatitis C Screening 11/20/2024 Social Influencers of Health Screening 11/20/2024 DTaP,Tdap,and Td Vaccines (7 - Td or Tdap) 11/17/2026 11/17/2016, 01/06/2007, 12/25/1998, Additional history exists Hepatitis B Vaccines Completed 02/24/1995, 1994, 1994 HIB Vaccines Completed 08/26/1995, 01/27, 1994, Additional history exists IPV Vaccines Completed 05/27/1998, 01/27, 1994, Additional history exists MMR Vaccines Completed 12/25/1998, 06/26/1995 Meningococcal ACWY Vaccine Aged Out 01/06/2007 N o longer eligible based on patient's age to complete this topic HPV Vaccines Completed 11/17/2007, 04/29, 03/25/2007 Varicella Vaccines Completed 08/27/2008, 12/26/1995 Hepatitis A Vaccines Aged Out 08/15/2014 No long er eligible based on patient's age to complete this topic Influenza Vaccine Completed 06/30/2024, , 08/06/2022, Additional history exists Meningococcal B Vaccine Aged Out No l onger eligible based on patient's age to complete this topic Pneumococcal Vaccine: Pediatrics (0 to 5 Years) and At-Risk Patients (6 to 64 Years) Aged Out No longer eligible based on patient's age to complete this topic RSV Immunization Patients Under 20 months Aged Out No longer eligible based on patient's age to complete this topic Insurance [facility] Care Teams Supervisor Fruit Grading Relationship Specialty Start Date End Date Charissa Adams MD [address] [place] [address] [address] [facility] [place] [phone] PCP - General Internal Medicine 11/20/24
--- OUTSIDE RECORDS SUMMARY | 2025-02-02 14:50 | XMS_ITS | Clinical Summary ---
Author Organization [facility] Address [address] [place] [address] Phone Care Team Providers Care Goal Umpire Name Role Phone Unavailable Primary Care Provider Unavailabl e Immunizations Immunization Administration Dates Next Due DTaP 5 12/25/1998, [...]
--- OUTSIDE RECORDS SUMMARY | 2025-02-02 14:50 | XMS_ITS | Encounter Summary ---
Author Organization [facility] Address [address] [place] [address] Phone Care Team Providers Care Printing Press Machine Operator Name Role Phone Briseyda Latif MD Primary Care Provider [phone] Encounter Details Date Type Department Care Team (Late st Contact Info) Description 02/05/2010 Documentation EM Family Medicine [address] [place] [address] Family Medicine, Physician [address] [place], [place] [id number] Social History Tobacco Use Types Packs/Day Years [...] on filedocumented in this encounter Care Teams Printing Press Machine Operator Relationship Specialty Start Date End Date Briseyda Latif MD [address] [place], [place] [address]JENNIFER [address] PCP - General 05/07/17 11/11/22 documented as of this encounter
--- OUTSIDE RECORDS SUMMARY | 2025-02-02 14:50 | XMS_ITS | Encounter Summary ---
Author Organization [facility] Address [address] [place] [address] Phone Care Team Providers Care Director Clinical Pharmacology Name Role Phone Briseyda Latif MD Primary Care Provider [phone] Encounter Details Date Type Department Care Team (Late st Contact Info) Description 05/13/2017 Conversion Encounter [facility] [place] [address] [place] [address] Social History Tobacco Use Types Packs/Day Years [...] on filedocumented in this encounter Care Teams Director Clinical Pharmacology Relationship Specialty Start Date End Date Briseyda Latif MD [address] [place] [address] PCP - General 05/07/17 11/11/22 documented as of this encounter
[2025-02-02 15:26] VITALS: BP 124/86; PULSE 109; TEMP 36.3; O2SAT 95; BMI 54.6
--- NOTE | 2025-02-02 15:26 | MHC.PC.OV ---
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 Required: No Accompanied by: Self / Same As Patient Allergies No Known Allergies [No Known Allergies*] Allergy (Verified 02/02/25 15:29) Medication List - Last Reconciled 02/02/25 by Charissa Adams MD cholecalciferol (vitamin D3) 50 mcg PO DAILY cyclobenzaprine 5 mg PO TID PRN 30 days diclofenac sodium 1% (Voltaren Arthritis Pain) 4 grams topical QID omeprazole 20 mg PO DAILY Tobacco use date assessed: 11/03/24 Dental Screening Dental Screen Date: 11/01/23 [facility] Medical History (Updated 02/02/25 @ 15:44 by Charissa Adams MD) Obesity Valvular heart disease Left ankle sprain Left ankle injury Near syncope Cervical cancer screening Hypercholesterolemia GERD (gastroesophageal reflux disease) Migraine ADHD Vitamin D deficiency Surgical History H/O heart surgery Family History (Updated 11/03/24 @ 15:41 by Charissa Adams MD) Father Diabetes Mother Diabetes Hypertension Maternal Aunt Pancreatic cancer Maternal Grandmother Breast cancer Social History Housing: House Alcohol intake: never Patient Tobacco Use Status: Never used Tobacco Tobacco use type: Cigarette e-Cigarette/Vaping Use: Never Used Second Hand Smoke Exposure: No service: No Current occupational status: employed 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 1. Little interest or pleasure in doing things: not at all 2. Feeling down, depressed, or hopeless: not at all 3. Trouble falling or staying asleep, or sleeping too much: several days 4. Feeling tired or having little energy: not at all 5. Poor appetite or overeating: not at all 6. Feeling bad about yourself - or that you are a failure or have let yourself or your family down: not at all 7. Trouble concentrating on things, such as reading the newspaper or watching television: not at all 8. Moving or speaking so slowly that other people could have noticed. Or the opposite - being so fidgety or restless that you have been moving around a lot more than usual: not at all 9. Thoughts that you would be better off or of hurting yourself in some way: not at all Total score: 1 Source: Developed by Drs. Godwin Fernandez, Sarah Arambula, Tony Kirkpatrick and colleagues, with an educational compa from [employer]. Thrive Questionnaire Date Thrive assessed: 10/29/24 I am a: Patient What is your living situation today?: I have a steady place to live Within the past 12 months, did the food you bought not last and you didn't have the money to get more?: Never true Within the past 12 months, did you worry whether your food would run out before you got money to buy more?: Never true Do you have trouble paying for medicines?: No Do you have trouble getting transportation to medical appointments?: No Do you have trouble paying your heating and electricity bill?: No Do you have trouble taking care of your child, family member or friend?: No Do you have trouble with day-to-day activities such as bathing, preparing meals, shopping, managing finances, etc.?: No Are you currently unemployed and looking for a job?: No Are you interested in more education?: I choose not to answer this question Please select the resources that you would like help with: None Currently or been in a relationship where the following occur: No concerns reported THRIVE Score: 0 HEMANT-7 AMB Questionnaire HEMANT-7 Date HEMANT - 7 assessed: 11/03/24 Source: Developed by Drs. Godwin Fernandez, Sarah Arambula, Tony Kirkpatrick and colleagues, with an educational compa from [employer]. Physical exam (Primary Care) Vital Signs: Last Vital Signs Temp 97.3 F 02/02/25 15:26 Pulse 109 H 02/02/25 15:26 BP 124/86 02/02/25 15:26 Pulse Ox 95 02/02/25 15:26 Oxygen Delivery Method Room Air 02/02/25 15:26 BMI result Body Mass Index 54.6 Tobacco/Smoking Status: Tobacco use Status Tobacco use date assessed 11/03/24 02/02/25 15:29 Patient Tobacco Use Status Never used Tobacco 02/02/25 15:29 Tobacco use type Cigarette 02/02/25 15:29 e-Cigarette/Vaping Use Never Used 02/02/25 15:29 PHQ-9: PHQ-9 Score PHQ-9: Total score 1 02/02/25 15:44 Thrive Assessment: Date of Thrive Assessment Date Thrive assessed 10/29/24 02/02/25 15:29 Currently or been in a relationship where the following occur: No concerns reported Const General: alert; No acute distress Eyes Conjunctivae: conjunctivae normal Resp Auscultation: clear to auscultation bilaterally Cardio Rate: regular rate Rhythm: regular rhythm GI Inspection: Yes normal to inspection Extrem General: Yes normal to inspection and No edema Coding Level of Care Code Est Pt Level 4 (86250) Diagnoses Obstructive sleep apnea G47.33 Morbid obesity E66.01 Fatty liver K76.0 Ankle pain, left M25.572 Assessment & Plan Assessment & Plan (1) Obstructive sleep apnea: Comment: Sleep study done 03/21/2024 results showing mild to moderate obstructive sleep apnea AHI of 18 advised CPAP therapy auto PAP mode 6-15 cm Code(s): G47.33 - Obstructive sleep apnea (adult) (pediatric) Category: Medical Plan: cannot tolerate CPAP. (2) Morbid obesity: Comment: BMI of 50+ Code(s): E66.01 - Morbid (severe) obesity due to excess calories Category: Medical Plan: Diet and exercise (3) Fatty liver: Code(s): K76.0 - Fatty (change of) liver, not elsewhere classified Category: Medical Plan: Low-fat diet and exercise (4) Ankle pain, left: Code(s): M25.572 - Pain in left ankle and joints of left foot Category: Medical Plan: Patient has been following up with ortho and MRI has been requested Plan History of Present Illness The patient is a 29-year-old female presenting for follow-up and management of multiple chronic conditions. She has morbid obesity, complicating her health status with GERD, hypercholesterolemia, nephrolithiasis, and left hepatic stenosis. Her cholesterol test in October showed an LDL of 125 mg/dL. She experiences insomnia and manages obstructive sleep apnea with CPAP use, helping with her symptoms. The sleep study revealed apnea episodes occurring 18 times per hour, raising heart-related concerns, like atrial fibrillation. She follows a low-fat diet, exercises regularly, yet mentions difficulties in reducing sweetened beverage intake. The CPAP and omeprazole are being used consistently. 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 Pain is managed using muscle relaxants and occasional ibuprofen. Increased physical activities include more walking and improved hydration, focusing on weight management. Health Maintenance - CPAP compliance exceeds 4 hours per night, addressing obstructive sleep apnea. - Patient encouraged to maintain a low-fat diet and engage in regular physical activity. - Omeprazole taken regularly for GERD management. - Referral intended for weight management consultation. - Tetanus shot status confirmed up-to-date. Social History - Patient consumes sweetened beverages, including soda and Gatorade. - Engages in more physical activity, particularly walking. - Attempts to drink more water to assist in weight management. Review of Systems - Respiratory: Reports using CPAP for sleep apnea; no other respiratory issues reported. - Gastrointestinal: Reports management of GERD with medication; denies any new gastrointestinal symptoms. - Musculoskeletal: Reports posterior ankle impingement syndrome; uses muscle relaxants and ibuprofen. - Neurological: Reports insomnia; using CPAP for sleep apnea. Physical Exam Results - Labs: October LDL cholesterol level at 125 mg/dL. - Tests: Previous MRI confirmed posterior ankle trigonum impingement. Plan Focusing on managing her morbid obesity is crucial due to its influence on her other health conditions. A referral to weight management services was discussed. Omeprazole remains effective for GERD management. For sleep apnea, she will continue using CPAP, and a referral to sleep medicine for alternative management options was scheduled. She will maintain conservative pain management for her ankle, although surgery remains an option. Follow-ups for cholesterol, apnea, and metabolic status were advised. Continual dietary modifications are emphasized. Patient was informed and verbally consented to the use of an ambient scribe for clinic note documentation during this visit. Discussion Notes I explained the benefits and necessity of maintaining CPAP therapy to manage her obstructive sleep apnea, which could potentially lead to heart issues like atrial fibrillation. We discussed a further referral to sleep medicine professionals to evaluate alternative CPAP options. Attention was given to her weight management, with encouragement to continue lifestyle changes and explore further weight management consultation options. Surgical consideration for her posterior ankle condition was noted, but conservative management continues. Understanding her test results and proposed intervention plans was emphasized, with patient confirmation to continue the outlined health maintenance steps, including diet and medication compliance. Patient Instructions - Continue using CPAP machine every night for sleep apnea. - Follow a low-fat diet and maintain regular exercise. - Use muscle relaxants and ibuprofen sparingly, as needed, for ankle pain. - Take omeprazole daily as prescribed for GERD. - Schedule and attend referral appointments for sleep medicine and weight management. - Replace sugary drinks like soda and Gatorade with water. - Report any new symptoms or worsening of current conditions. Orders: Referrals Sleep Medicine Referral G47.33 - Obstructive sleep apnea (adult) (pediatric) Medical Weight Management Referral E66.01 - Morbid (severe) obesity due to excess calories, Z68.43 - Body mass index [BMI] 50.0-59.9, adult
== END 2025-02-02 15:54 | disposition home or self-care (01) ==
LOC: HO.HMCH 14:47
PROVIDERS: PCP Internal Medicine; Visit Provider Internal Medicine
DX: G47.33 Obstructive sleep apnea (adult) (pediatric) (principal); E66.01 Morbid (severe) obesity due to excess calories; Z68.43 Body mass index [BMI] 50.0-59.9, adult; K76.0 Fatty (change of) liver, not elsewhere classified; M25.572 Pain in left ankle and joints of left foot

== ENCOUNTER → 2025-02-02 14:46 | Outpatient (BNVA) | payer OTHER, SELFPAY | PROVIDERS: PCP Internal Medicine; Visit Provider Internal Medicine | DX: K21.9 Gastro-esophageal reflux disease without esophagitis (principal); E66.01 Morbid (severe) obesity due to excess calories; G47.33 Obstructive sleep apnea (adult) (pediatric); K76.0 Fatty (change of) liver, not elsewhere classified; M25.572 Pain in left ankle and joints of left foot; Z68.43 Body mass index [BMI] 50.0-59.9, adult | CPT/HCPCS: 99212 ==

== ENCOUNTER → 2025-02-22 14:40 | Outpatient (BNVA) | payer OTHER, SELFPAY | PROVIDERS: PCP Internal Medicine; Visit Provider Physician Assistant Surgical ==

== ENCOUNTER 2025-03-27 14:38 | Outpatient (AMB) | payer OTHER, SELFPAY ==
[2025-03-27 15:04] VITALS: PULSE 102; O2SAT 98; BMI 54.2
--- NOTE | 2025-03-27 15:04 | MHC.OFFVIS ---
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 Sleep study done 03/21/2024 results showing mild to moderate obstructive sleep apnea AHI of 18 advised CPAP therapy auto PAP mode 6-15 cm. She experiences insomnia and manages obstructive sleep apnea with CPAP use, helping with her symptoms. Currently not using CPAP. Allergies No Known Allergies (No Known Allergies*) Allergy (Verified 03/27/25 15:09) HPI Comments Details: 29 year old female with moderate VIKTORIA, referred to us by her pcp for sleep evaluation. 02/2024 HST c/w moderate VIKTORIA AHI was 18 and Oxygen Nadirs to 84% with 30% of TST snoring. cpap [id number] was started. She could not tolerate cpap use as she does not like anything touching her face. 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 Her BMI is elevated to 54 and her diet is poor. She goes to bed at midnight wakes up at 6am, feels chronically fatigued, can not sleep through the night. She has Gerd, wakes up coughing and gasping for air. Denies grinding her teeth, restless leg syndrome symptoms, sleep walking, sleep talking. Denies fh dementia and bells palsey. Denies sleep talking and sleep walking. Denies morning headaches. She does not smoke or drink alcohol. Lab reviewed with patient. xray ankle request/ MRI ankle request [facility] xray thoracic spine fracture [facility] Medical History Obesity Valvular heart disease Left ankle sprain Left ankle injury Near syncope Cervical cancer screening Hypercholesterolemia GERD (gastroesophageal reflux disease) Migraine ADHD Vitamin D deficiency Surgical History Hx of wisdom tooth extraction H/O heart surgery Family History Father Diabetes Mother Diabetes Hypertension Maternal Aunt Pancreatic cancer Maternal Grandmother Breast cancer Social History Housing: House Alcohol intake: never Patient Tobacco Use Status: Never used Tobacco Tobacco use type: Cigarette e-Cigarette/Vaping Use: Never Used Second Hand Smoke Exposure: No service: No Current occupational status: employed 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 Gender identity: Female Cognitive needs: No Hearing needs: No Vision needs: Yes Female Reproductive History Menstrual Age of Menarche: 13 Physical Exam Vital Signs: Last Vital Signs Pulse 102 H 03/27/25 15:04 Pulse Ox 98 03/27/25 15:04 Oxygen Delivery Method Room Air 03/27/25 15:04 BMI result Body Mass Index 54.2 Const General: cooperative, comfortable and no acute distress Nutritional Appearance: obese Orientation/consciousness: patient oriented x3 HEENT Face and sinus: Yes face symmetric Teeth and gingiva: other (mallampti score 3) Eyes Pupils: Equal, round and reactive pupils present Neck Neck: Yes full ROM Resp Effort & Inspection: normal respiratory effort and able to speak in complete sentences Neuro General: patient oriented x3 and moves all extremities Cranial nerves: Yes Facial sensation intact/muscles of mastication intact, Yes Equal, round and reactive pupils present, Yes Ability to bilaterally rotate head present and Yes Ability to bilaterally elevate shoulders present Gait exam (Neuro): Normal gait present Motor exam (neuro): 5/5 motor strength present throughout and Normal motor muscle tone present throughout Deep tendon reflexes (DTR's): Right triceps reflex intensity grade: 2+, Left triceps reflex intensity grade: 2+, Rt Biceps (C5, C6): 2+, Left biceps reflex intensity grade: 2+, Right brachioradialis reflex intensity grade: 2+, Left brachioradialis reflex intensity grade: 2+, Right patellar reflex intensity grade: 2+, Left patellar reflex intensity grade: 2+, Right ankle reflex intensity grade: 2+ and Left ankle reflex intensity grade: 2+ Psych Appearance: grossly normal Affect: normal affect Attitude: cooperative Thought process: Normal thought process present Insight: Good insight present (Psych) Results Reviewed Results Reviewed: HST 02/2024 AHI is 18 and oxygen nadirs to 84%, 30% of TST snoring. cpap started at [id number] Assessment & Plan Assessment & Plan (1) Obstructive sleep apnea: Comment: Sleep study done 03/21/2024 results showing mild to moderate obstructive sleep apnea AHI of 18 advised CPAP therapy auto PAP mode 6-15 cm Code(s): G47.33 - Obstructive sleep apnea (adult) (pediatric) Category: Medical (2) Morbid obesity: Comment: BMI of 50+ Code(s): E66.01 - Morbid (severe) obesity due to excess calories Category: Medical (3) Fatigue: Code(s): R53.83 - Other fatigue Category: Medical Qualifiers: Fatigue type: chronic, unspecified Qualified Code(s): R53.82 - Chronic fatigue, unspecified Plan VIKTORIA Melatonin 5mg 3 hours prior to bedtime. PSG Will evaluate for RLS and PLMD, as patient has h/o multiple vertebral disc fractures and ankle fractures and wearing AFO. labs to r/o deficiencies f/u in 3 months Orders: Orders RT PSG in-lab sleep study Today E66.01 - Morbid (severe) obesity due to excess calories, G47.33 - Obstructive sleep apnea (adult) (pediatric) Homocysteine Today G47.9 - Sleep disorder, unspecified, R53.83 - Other fatigue Comprehensive Met. Panel Today R53.83 - Other fatigue Complete Blood Count no Diff Today R53.83 - Other fatigue Vitamin B12 and Folate Today R53.83 - Other fatigue Vitamin D 25-OH Total Today R53.83 - Other fatigue TSH reflex Free T4 Today R53.83 - Other fatigue Methylmalonic Acid Today G47.9 - Sleep disorder, unspecified, R53.83 - Other fatigue IRON PROFILE Today G47.9 - Sleep disorder, unspecified, R53.83 - Other fatigue Ferritin Today R53.83 - Other fatigue Hemoglobin A1c Today R53.83 - Other fatigue Patient Instructions: Sleep Hygiene provided: set a scheduled bedtime and wake time to help regulate the circadian rhythm and balance the release of pituitary hormones. Sleep in a dark room, temperatures below 68 degrees, and no devices n bed. Limit caffeinated products 6 hours prior to bed, and limit fluids 2-4 hours prior to bed. Gentle night yoga, diffusing essential oils, and playing soft music can be relaxing. Coding Level of Care Code New Pt Level 4 (16789) Diagnoses Obstructive sleep apnea G47.33 Morbid obesity E66.01 Chronic fatigue R53.82 Fatigue type: chronic, unspecified Time Spent (min) 30 Comment Evaluation
--- OUTSIDE RECORDS SUMMARY | 2025-03-27 15:43 | XMS_ITS | Encounter Summary ---
Author Organization [facility] Address [address] [place] [address] Phone Care Team Providers Care Woods Overseer Name Role Phone Briseyda Latif MD Primary Care Provider [phone] Encounter Details Date Type Department Care Team (Late st Contact Info) Description 02/07/2014 Documentation EM Family Medicine [address] [place] [address] Family Medicine, Physician [address] [place], [place] [phone] Social History Tobacco Use Types Packs/Day Years [...] on filedocumented in this encounter Care Teams Woods Overseer Relationship Specialty Start Date End Date Briseyda Latif MD [address] [place], [place] [address]JENNIFER [address] PCP - General 05/07/17 11/11/22 documented as of this encounter
--- OUTSIDE RECORDS SUMMARY | 2025-03-27 15:43 | XMS_ITS | Clinical Summary ---
Author Organization [facility] Address [address] [place] [address] Phone Care Team Providers Care Stonemason Name Role Phone Charissa Adams MD Primary Care Provider [phone] Allergies No known active allergies Medications cholecalciferol (VITAMIN D-3) 50 mcg (2,000 unit) capsule TOME 1 C PSULA POR V A ORAL TODOS LOS D 5 Active diclofenac (VOLTAREN) 1 % topical gel APPLY 4 GRAMS TOPICALLY 4 TIMES DAILY TO KNEE, ANKLE, FOOT Active omeprazole (PriLOSEC) [address] capsule TOME 1 C PSULA POR V A ORAL TODOS LOS D Active Encounters Date Type Department Care Team Description 02/06/2025 3:00 PM EDT Office Visit Orthopedic Surgery [place] [address] [phone] Marvin Estes DPM Pain in left ankle and joints of left foot (Primary Dx); Bursitis of left ankle 01/23/2025 3:15 PM EDT Consult Orthopedic Surgery [place] [address] [phone] Marvin Estes DPM Pain in left ankle and joints [...] 01/23/2025 3:42 PM EDT Plan of Treatment Health Maintenance Due Date Last Done Comments Cervical Cancer Screening: Pap Smear 2015 COVID-19 Vaccine () 05/28/2024 07/22/2021, 07/01/2021 Cholesterol Screening (Lipid Panel) 11/20/2024 [...] Procedure Name Priority Date/Time Associated Diagnosis Comments INJECTION TENDON OR LIGAMENT Routine 02/06/2025 3:00 PM EDT Bursitis of left ankle from Last 3 Months Results * Injection tendon or ligament (02/06/2025 3:00 PM EDT) Marvin Rdz DPM - 02/06/2025 3:00 PM EDT Marvin Estes DPM 02/06/2025 4:04 PM Injection tendon or ligament Indications: pain Details: 25 G needle Medications: 1 mL lidocaine (PF) 1 %; 30 mg ketorolac 30 mg/mL Informed Consent: Site: Foot ligament tendon us Marvin Estes DPM IN CLINIC/BEDSIDE ORDERAB LES Final Result from Last 3 Months Insurance [facility] Care Teams Stonemason Relationship Specialty Start Date End Date Charissa Adams MD [address] [place] [address] [address] [facility] [place] [address] PCP - General Internal Medicine 11/20/24
--- OUTSIDE RECORDS SUMMARY | 2025-03-27 15:43 | XMS_ITS | Clinical Summary ---
Author Organization [employer] Address [address] [place] [address] [address] [place] [address] Care Team Providers Care Core Analysis Operator Name Role Phone Unavailable Primary Care Provider Unavailabl e Allergies No known active allergies Medications doxepin (SINEquan) 10 MG capsule Take 10 mg by mouth at bedtime. Active omeprazole (PriLOSEC) [address] capsule Take 20 mg by mouth before breakfast. Do not crush or chew. Active cyclobenzaprine (Flexeril) 5 MG tablet Take by mouth. Active ergocalciferol (Vitamin D-2) 1.25 MG (38204 UT) capsule Take 1.25 mg by mouth 1 (one) time per week. Active Encounters Date Type Department Care Team Description 01/01/2025 3:[address]T Office [address] [facility] [address] [place] [address] Jackie Anna from Last 3 Months Social [...] Upcoming Encounters Date Type Department Care Team ([facility] st Contact Info) Description 07/05/2025 3:00 PM EDT Office Visit [facility] [address] [place] [address] Jackie Anna [address] [place] [address] Health Maintenance Due Date Last Done Comments Depression Screening 1994 HIV Screening 1994 Lipid Panel 1994 SDOH Screening 1994 Disability Screening 1994 Alcohol/Substance Use Screening 2006 Family [...] Years) and At-Risk Patients (6 to 49) Years Aged Out No longer eligible based on [...] Most Recently Relevant to Health Maintenance Insurance [facility] MEDICAID STAND ADULT
== END 2025-03-27 15:57 | disposition home or self-care (01) ==
LOC: HO.HSMS 14:39
PROVIDERS: PCP Internal Medicine; Visit Provider Physician Assistant Medical
DX: G47.33 Obstructive sleep apnea (adult) (pediatric) (principal); E66.01 Morbid (severe) obesity due to excess calories; R53.82 Chronic fatigue, unspecified
CPT/HCPCS: 99204

== ENCOUNTER → 2025-03-27 14:38 | Outpatient (BNVA) | payer OTHER, SELFPAY | PROVIDERS: PCP Internal Medicine; Visit Provider Physician Assistant Medical | DX: G47.33 Obstructive sleep apnea (adult) (pediatric) (principal); E66.01 Morbid (severe) obesity due to excess calories; R53.83 Other fatigue | CPT/HCPCS: 99202 ==

== ENCOUNTER 2025-05-18 08:14 | Outpatient (AMB) | payer OTHER, SELFPAY ==
--- OUTSIDE RECORDS SUMMARY | 2025-05-18 08:22 | XMS_ITS | Clinical Summary ---
Author Organization [employer] Address [address] [place] [address] 7 [place] [address] Care Team Providers Care Registered Nurse Fetal Name Role Phone Unavailable Primary Care Provider Unavailabl e Allergies No known active allergies Medications doxepin (SINEquan) 10 MG capsule Take 10 mg by mouth at bedtime. Active omeprazole (PriLOSEC) [address] capsule Take 20 mg by mouth before breakfast. Do not crush or chew. Active cyclobenzaprine (Flexeril) 5 MG tablet Take by mouth. Active ergocalciferol (Vitamin D-2) 1.25 MG (64791 UT) capsule Take 1.25 mg by mouth [...] Upcoming Encounters Date Type Department Care Team ([facility] st Contact Info) Description 07/05/2025 3:00 PM EDT Office Visit [facility] [address] [place] [phone] Jackie Anna [address] [place] [address] Health Maintenance Due Date Last Done Comments Depression Screening 1994 HIV Screening 1994 Lipid Panel 1994 SDOH Screening 1994 Disability Screening 1994 Alcohol/Substance Use Screening 2006 Family Planning (PISQ) 2009 Hepatitis C Screening 2012 Pap Smear 2015 Cervical Cancer Screening 2024 HPV/Cotest 2024 COVID-19 Vaccine ( season) 2024 07/22/2021, 07/01/2021 Influenza Vaccine (#1) 2025 , 08/10/2023, 08/06/2022, Additional history exists Dental X-Ray: Bitewings 06/30/2025 06/29/2024 Dental Oral [...] patient's age to complete this topic Meningococcal B Vaccine Aged Out No l [...] Associated Diagnosis Comments PROPHYLAXIS - ADULT Routine 01/01/2025 3 :00 PM EDT PERIODIC ORAL EVALUATION - ESTABLISHED PATIENT Routine 01/01/2025 3:00 PM EDT BITEWINGS - 2 RADIOGRAPHIC IMAGES Routine 06/29/2024 3:00 PM EDT PANORAMIC RADIOGRAPHIC IMAGE Routine 05/17/2023 8:00 AM EDT Encounter for dental examination from Last 3 Months or Most Recently Relevant to Health Maintenance Insurance [facility] [address] MEDICAID STAND ADULT
--- OUTSIDE RECORDS SUMMARY | 2025-05-18 08:22 | XMS_ITS | Clinical Summary ---
Author Organization [facility] Address [address] [place] [id number] Phone Care Team Providers Care Patrol Lady Name Role Phone Charissa Adams MD Primary Care Provider [phone] Allergies No known active allergies Medications omeprazole (PRILOSEC) 20 MG capsule TOME 1 C PSULA POR V A ORAL TODOS LOS D 2 Active diclofenac sodium (VOLTAREN) 1 % Gel APPLY 4 GRAMS TOPICALLY 4 TIMES DAILY TO SINGLE KNEE, ANKLE, OR FOOT 2 Active cyclobenzaprine (FLEXERIL) 5 MG tablet TOME IVON TABLETA POR V A ORAL 3 TIMES A DAY NEEDED FOR MUSCLE SPASM FOR 30 DAYS 2 Active cholecalciferol (VITAMIN D3) 400 unit tablet Take 400 Units by mouth daily. 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 Not on janeen e 01/23/2023 Are you concerned about learning? Not on file 01/23/2023 No 01/23/2023 No 01/23/2023 Digital Access Answer Date Recorded No 02/21/2023 No 02/21/2023 Reliable internet access at home? Not on file 02/21/2023 Device with a working camera? Not on file Intimate Partner Violence Answer Date R ecorded Are you denied basic needs s uch as food, clothing, or medical care? No 09/23/2022 In the past 12 months have y ou been in a relationship with a person who hurts, threatens, or tries to control you? No 09/23/2022 Are you denied basic needs s uch as food, clothing, or medical care? No 09/23/2022 In the past 12 months have y ou been in a relationship with a person who hurts, threatens, or tries to control you? No 09/23/2022 Comments No Sex and Gender Information Value Date Recorded Sex Assigned at Not on file Legal Sex Female 11:21 AM EDT Gender Identity Not on file Sexual Orientation Not on file Last Filed Vital Signs Vital Sign Reading Time Taken Comments Blood Pressure 138/94 09/23/2022 11:30 AM EST Pulse 93 09/23/2022 11:40 AM EST Temperature 37.1 C (98.8 F) 09/23/2022 10:53 AM EST Respiratory Rate 17 09/23/2022 11:40 AM EST Oxygen Saturation 100% 09/23/2022 11:40 AM EST Inhaled Oxygen Concentration - - Weight 136.1 kg (300 lb) 09/11/2024 3:29 PM EST Height 160 cm (5' 3 ) 09/11/2024 3:29 PM EST Body Mass Index 53.14 09/11/2024 3:29 PM EST Plan of Treatment Health Maintenance Due Date Last Done Comments DEPRESSION SCREENING 2006 HEPATITIS C SCREENING 2012 HIV ONE-TIME SCREENING (18-6 5 YEARS) 2012 PAP SMEAR 2015 Adult Td,Tdap Booster 01/06/2017 01/06/2007 COVID-19 VACCINE (2023-2 5 season) 2024 SMOKING STATUS SCREENING (On ce After 26 Yrs) Completed 09/11/2024 HEPATITIS A VACCINES Aged Out No long er eligible based on patient's age to complete this topic HIB VACCINES Aged Out No longer eligi ble based on patient's age to complete this topic MENINGOCOCCAL VACCINES (ACWY) Aged Out No longer eligible based on patient's age to complete this topic MENINGOCOCCAL VACCINES (B) Aged Out N o longer eligible based on patient's age to complete this topic PNEUMOCOCCAL VACCINES (0-49 years) Aged Out No longer eligible based on patient's age to complete this topic Medical Devices Not on file Insurance [place] [address] [place] [address] [place] [address] [place] [address] [place] [address] [place] [address] [place] [address] [place] [address] [place] [address] [place] [address] ACO Care Teams Patrol Lady Relationship Specialty Start Date End Date Charissa Adams MD [address] [place] [address] [address] [place] [id number] PCP - General Internal Medicine 07/14/22 Additional Source Comments The information contained in this document represents components of the legal health record. It is not the complete legal health record.[facility]
--- OUTSIDE RECORDS SUMMARY | 2025-05-18 08:22 | XMS_ITS | Encounter Summary ---
Author Organization [facility] Address [address] [place] [address] Phone Care Team Providers Care C++ Professor Name Role Phone Briseyda Latif MD Primary Care Provider [phone] Encounter Details Date Type Department Care Team (Late st Contact Info) Description 02/07/2014 Documentation EM Family Medicine [address] [place] [address] Family Medicine, Physician [address] [place], [place] [id number] Social History Tobacco Use Types Packs/Day Years [...] on filedocumented in this encounter Care Teams C++ Professor Relationship Specialty Start Date End Date Briseyda Latif MD [address] [place], [place] [address]JENN[place]ER [id number] PCP - General 05/07/17 11/11/22 documented as of this encounter
--- OUTSIDE RECORDS SUMMARY | 2025-05-18 08:22 | XMS_ITS | Clinical Summary ---
Author Organization [facility] Address [address] [place] [address] Phone Care Team Providers Care Building Code Administrator Name Role Phone Charissa Adams MD Primary Care Provider [phone] Allergies No known active allergies Medications cholecalciferol (VITAMIN D-3) 50 mcg (2,000 unit) capsule TOME 1 C PSULA POR V A ORAL TODOS LOS D Active diclofenac (VOLTAREN) 1 % topical gel APPLY 4 GRAMS TOPICALLY 4 TIMES DAILY TO KNEE, ANKLE, FOOT Active omeprazole (PriLOSEC) [address] capsule TOME 1 C PSULA POR V A ORAL TODOS LOS D Active Social History Tobacco Use Types Packs/Day [...] COVID-19 Vaccine ( season) 2024 07/22/2021, 07/01/2021 Depression Screening 09/27/2024 Cholesterol Screening (Lipid Panel) 11/20/2024 HIV Screening 11/20/2024 Hepatitis C Screening 11/20/2024 Social Influencers of Health Screening 11/20/2024 Influenza Vaccine (#1) 2025 , 08/10/2023, 08/06/2022, Additional history exists DTaP,Tdap,and Td Vaccines (7 - Td or [...] 5 Years) and At-Risk Patients (6 to 49 Years) Aged Out No longer eligible based on patient's age to complete this topic RSV Immunization Patients Under 20 months Aged Out No longer eligible based on patient's age to complete this topic Insurance [facility] PLAN Care Teams Building Code Administrator Relationship Specialty Start Date End Date Charissa Adams MD [address] [place] [address] [address] [facility] [place] [address] PCP - General Internal Medicine 11/20/24
--- NOTE | 2025-05-18 12:23 | A.OFFVIS_ITS ---
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 [facility]: Details: Start time: 12.15pm, End time: 12.47pm ?I spent 27 minutes speaking with the patient on the phone plus an additional 5 minutes reviewing and updating records for a total of 32 minutes HPI Comments Details: Previous weight loss efforts: self diet and exercise Wakes up: 8am, Sleeps: 9pm Breakfast: skips Lunch: 12pm (noodles) Dinner: 7pm (pasta, rice, chicken) Snacks: 10am (Granola bar, chips), 4pm (chips) Exercise: none Beverages: Coffee: none, Tea: none, Soda: regular Sprite daily, Dilated juice (1 cup/d), ETOH: none PFSH Medical History (Updated 03/27/25 @ 22:11 by Meena Hennessy PA-C) Obesity Valvular heart disease Left ankle sprain Left ankle injury Near syncope Cervical cancer screening Hypercholesterolemia GERD (gastroesophageal reflux disease) Migraine ADHD Vitamin D deficiency Surgical History Hx of wisdom tooth extraction H/O heart surgery Family History Father Diabetes Mother Diabetes Hypertension Maternal Aunt Pancreatic cancer Maternal Grandmother Breast cancer Social History Housing: House Alcohol intake: never Patient Tobacco Use Status: Never used Tobacco Tobacco use type: Cigarette e-Cigarette/Vaping Use: Never Used Second Hand Smoke Exposure: No service: No Current occupational status: employed 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 Gender identity: Female Cognitive needs: No Hearing needs: No Vision needs: Yes Female Reproductive History Menstrual Age of Menarche: 13 Telehealth Telehealth Telehealth Platform: Telephone Location of provider rendering services: practice address Location of patient: address on file Patient Identification confirmed using: Name, : Yes Telehealth method: voice only Patient verbally consented to treatment: Yes Patient verbally consented to billing insurance company: Yes Patient informed of any privacy concerns related to visit: Yes Minutes spent on Phone/Video with Pt.: 32 Assessment & Plan Assessment & Plan (1) Morbid obesity: Comment: BMI of 50+ Code(s): E66.01 - Morbid (severe) obesity due to excess calories Category: Medical Plan: 1. As we discussed, based on your present BMI you are approximately 150lbs overweight. In my opinion, for any weight loss strategy to be successful should have a high probability to help you lose at least 100lbs out of 150lbs of the extra weight you carry. We discussed in detail the available therapeutic options: 1) our lifestyle intervention program that has an average weight loss of 10% in 3 months, which is about 30lbs for you.?Some patients continue it for longer and have lost over 50lbs but this is not common. Our lifestyle program can be provided by me or by using our software randall, the [employer] randall. I will provide you with a link to use the randall if you choose to do so. 2) Weight loss medications: these can be used in conjunction with our lifestyle program or you may choose to use them without following a lifestyle program from my program but your own. As we discussed, your insurance requires you to use first an older medication called Phentermine and only if you don't make any progress on this or develop side effects, we could prescribe the new injectable medications. The medication I use more often is called Zepbound and is one shot per week. My office will do the authorizations and we will train you how to use it properly. You can also self pay for the injections and the cost is $249 for the first month and $499 for any other month thereafter. These payments go to the drug company directly and not to us. 3) We also discussed about the lap sleeve gastrectomy. In my opinion this is the best option to solve your problem based on your situation and should be used in conjunction with the two previous options. A good strategy to make this decision to proceed with surgery, is to set some goals with the lifestyle intervention and medication options: If you don't lose at least 10lbs the first 6 weeks after starting the program or at least 10% in 3 months. ?I emphasized the importance of close follow-up, adherence to instructions and good communication. The surgery does not replace the need to change your lifestlyle which is the cause of the obesity problem. The surgery provides the motivation to try again to change your lifestyle, it reduces the appetite and make the transition to a better lifestyle easier and doubles the amount of weight you would lose compared to doing the lifestyle change without the surgery. You will need to be on a liquid diet with protein shakes for 2 weeks b efore surgery to maximize weight loss and boost your nutritional status to recover better from surgery and also for the first two weeks after surgery to let the stomach heal before we introduce other foods. After the first 2 weeks we will introduce protein bars and soft foods like scrambled eggs, cottage cheese and yogurt and after the 6th week will introduce meat, fish and cooked vegetables in small amounts. Over time you should be able to eat everything in small amounts. Side effects like nausea, vomiting, heartburn or abdominal pain are not common in the practice unless you are not following in the practice. This operation requires lifetime commitment to following in our practice and communication with me. You will much less weight and experience side effects if you don?t communicate or not following in the practice. Complications are rare and in our practice is about 1/10 of the national average.
[2025-05-18 12:36] VITALS: BMI 54.2
== END 2025-05-18 12:48 | disposition home or self-care (01) ==
LOC: HO.HBS 08:14
PROVIDERS: PCP Internal Medicine; Visit Provider Surgery
DX: E66.01 Morbid (severe) obesity due to excess calories (principal)
CPT/HCPCS: 99203

== ENCOUNTER 2025-05-29 15:17 | Outpatient (AMB) | payer OTHER, SELFPAY ==
[2025-05-29 15:24] VITALS: BP 144/92; PULSE 102; O2SAT 98; BMI 53.1
--- NOTE | 2025-05-29 15:24 | MHC.PC.OV ---
Vital Signs 05/29/25 15:24 05/29/25 15:49 Height 5 ft 3 in Weight 300 lb BMI 53.1 BP 144/92 H 130/80 Blood Pressure Location Lt brachial Lt brachial Position Sitting Sitting Pulse 102 H Pulse Source Pulse Oximeter Pulse Oximetry (%) 98 Oxygen Delivery Method Room Air Intake Visit Reasons: VIKTORIA, Morbid Obesity Allergies No Known Allergies (No Known Allergies*) Allergy (Verified 05/29/25 15:25) Tobacco use date assessed: 11/03/24 Dental Screening Dental Screen Date: 11/01/23 FORMERLY [facility] Medical History Obesity Valvular heart disease Left ankle sprain Left ankle injury Near syncope Cervical cancer screening Hypercholesterolemia GERD (gastroesophageal reflux disease) Migraine ADHD Vitamin D deficiency Surgical History Hx of wisdom tooth extraction H/O heart surgery Family History Father Diabetes Mother Diabetes Hypertension Maternal Aunt Pancreatic cancer Maternal Grandmother Breast cancer Social History Housing: House Alcohol intake: never Patient Tobacco Use Status: Never used Tobacco Tobacco use type: Cigarette e-Cigarette/Vaping Use: Never Used Second Hand Smoke Exposure: No service: No Current occupational status: employed 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 1. Little interest or pleasure in doing things: not at all 2. Feeling down, depressed, or hopeless: not at all 3. Trouble falling or staying asleep, or sleeping too much: several days 4. Feeling tired or having little energy: not at all 5. Poor appetite or overeating: not at all 6. Feeling bad about yourself - or that you are a failure or have let yourself or your family down: not at all 7. Trouble concentrating on things, such as reading the newspaper or watching television: not at all 8. Moving or speaking so slowly that other people could have noticed. Or the opposite - being so fidgety or restless that you have been moving around a lot more than usual: not at all 9. Thoughts that you would be better off or of hurting yourself in some way: not at all Total score: 1 Depression Screening Interpretation: Positive Depression Screening Done: Yes Source: Developed by Drs. Godwin Fernandez, Sarah Arambula, Tony Kirkpatrick and colleagues, with an educational compa from [facility]. Thrive Questionnaire Date Thrive assessed: 10/29/24 I am a: Patient What is your living situation today?: I have a steady place to live Within the past 12 months, did the food you bought not last and you didn't have the money to get more?: Never true Within the past 12 months, did you worry whether your food would run out before you got money to buy more?: Never true Do you have trouble paying for medicines?: No Do you have trouble getting transportation to medical appointments?: No Do you have trouble paying your heating and electricity bill?: No Do you have trouble taking care of your child, family member or friend?: No Do you have trouble with day-to-day activities such as bathing, preparing meals, shopping, managing finances, etc.?: No Are you currently unemployed and looking for a job?: No Are you interested in more education?: I choose not to answer this question Please select the resources that you would like help with: None Currently or been in a relationship where the following occur: No concerns reported THRIVE Score: 0 AUDIT C Alcohol Use Questionnaire (AUDIT-C) 1. How often do you have a drink containing alcohol?: Never 3. How often do you have six or more drinks on one occasion?: Never Total Score: 0 HEAMNT-7 AMB Questionnaire HEMANT-7 Date HEMANT - 7 assessed: 11/03/24 Source: Developed by Drs. Godwin Fernandez, Sarah Arambula, Tony Kirkpatrick and colleagues, with an educational compa from [facility]. Physical exam (Primary Care) Vital Signs: Last Vital Signs Pulse 102 H 05/29/25 15:24 BP 144/92 H 05/29/25 15:24 Pulse Ox 98 05/29/25 15:24 Oxygen Delivery Method Room Air 05/29/25 15:24 BMI result Body Mass Index 53.1 Tobacco/Smoking Status: Tobacco use Status Tobacco use date assessed 11/03/24 05/29/25 15:30 Patient Tobacco Use Status Never used Tobacco 05/29/25 15:30 Tobacco use type Cigarette 05/29/25 15:30 e-Cigarette/Vaping Use Never Used 05/29/25 15:30 PHQ-9: PHQ-9 Score PHQ-9: Total score 1 05/29/25 15:30 Depression Screening Interpretation: Positive Thrive Assessment: Date of Thrive Assessment Date Thrive assessed 10/29/24 05/29/25 15:30 Currently or been in a relationship where the following occur: No concerns reported Const General: alert; No acute distress Eyes Conjunctivae: conjunctivae normal Resp Auscultation: clear to auscultation bilaterally Cardio Rate: regular rate Rhythm: regular rhythm GI Inspection: Yes normal to inspection Extrem General: Yes normal to inspection and No edema Coding Level of Care Code Est Pt Level 4 (93296) Complex EM visit Add On G2211 Diagnoses Morbid obesity with BMI of 50.0-59.9, adult E66.01; Z68.43 Hypercholesterolemia E78.00 Gastroesophageal reflux disease without esophagitis K21.9 Esophagitis presence: without esophagitis Fatty liver K76.0 Obstructive sleep apnea G47.33 Ankle pain, left M25.572 Assessment & Plan Assessment & Plan (1) Morbid obesity with BMI of 50.0-59.9, adult: Code(s): E66.01 - Morbid (severe) obesity due to excess calories; Z68.43 - Body mass index [BMI] 50.0-59.9, adult Category: Medical Plan: Diet and exercise (2) Hypercholesterolemia: Code(s): E78.00 - Pure hypercholesterolemia, unspecified Category: Medical Plan: Avoid fried foods, chicken skin, eggs, butter margarine, pastries and meat. Be it pork or beef they have a lot of cholesterol LDL goal of less than 130 and triglyceride of less than 150 (3) GERD (gastroesophageal reflux disease): Code(s): K21.9 - Gastro-esophageal reflux disease without esophagitis Category: Medical Qualifiers: Esophagitis presence: without esophagitis Qualified Code(s): K21.9 - Gastro-esophageal reflux disease without esophagitis Plan: Avoid the foods that causes that usually spicy foods, tomato products, juices, coffee, soda and foods that your sensitive to. After eating do not lie down, allow 3-4 hours before in lie down. And keep the head of bed above 30 degrees to avoid the acid from going up. (4) Fatty liver: Code(s): K76.0 - Fatty (change of) liver, not elsewhere classified Category: Medical Plan: Low-fat diet and exercise (5) Obstructive sleep apnea: Comment: Sleep study done 03/21/2024 results showing mild to moderate obstructive sleep apnea AHI of 18 advised CPAP therapy auto PAP mode 6-15 cm Code(s): G47.33 - Obstructive sleep apnea (adult) (pediatric) Category: Medical Plan: sleep study pending (6) Ankle pain, left: Code(s): M25.572 - Pain in left ankle and joints of left foot Category: Medical Plan: seeing NEOs now Plan History of Present Illness The patient is a 30-year-old female presenting for a follow-up visit. She has a history of morbid obesity and has recently achieved a 6-pound weight loss through increased physical activity, including walking during lunch breaks and after work, and taking stairs more frequently. She is currently exploring weight management options, preferring medication over surgery, although she has not yet received a response from the weight management team regarding this preference. The patient has hypercholesterolemia, with the last LDL cholesterol level recorded at 125 mg/dL in October 2023. Her cholesterol management plan includes achieving an LDL goal of less than 130 mg/dL and triglycerides of less than 150 mg/dL. She has a history of gastroesophageal reflux disease (GERD) and is advised to follow a no-fat diet and exercise regimen to manage her symptoms. The patient has a history of left nephrolithiasis and obstructive sleep apnea. She previously used a CPAP machine but discontinued it due to discomfort and is awaiting a new sleep study scheduled for June. Her recent blood work in October 2024 showed normal blood count, electrolytes, renal function, blood sugar, and liver function, but low vitamin D levels. She takes vitamin D supplements, although occasionally forgets to take them at night. Health Maintenance - Weight management: Engaging in increased physical activity and dietary modifications - Vitamin D supplementation: Advised to continue supplementation despite occasional forgetfulness - Sleep study: Scheduled for June to reassess obstructive sleep apnea management Social History - Exercise: Increased physical activity including walking during lunch breaks and after work, and taking stairs more frequently - Dietary habits: Avoidance of soda and preference for flavored water, adherence to a no-fat diet for GERD management Review of Systems - General: Reports weight loss of 6 pounds - Respiratory: Reports discontinuation of CPAP due to discomfort Physical Exam - Cardiovascular: Blood pressure measured at 130/80 mmHg Results - Labs: Normal blood count, electrolytes, renal function, blood sugar, and liver function; low vitamin D levels (October 2024) - Cholesterol: LDL cholesterol level of 125 mg/dL (October 2023) Plan Patient was informed and verbally consented to the use of an ambient scribe for clinic note documentation during this visit. 1. Morbid Obesity The patient is engaged in a weight management program, focusing on increased physical activity and dietary changes to facilitate weight loss. She prefers to start with medication rather than surgery for weight management, although she has not yet received a response from the weight management team. 2. Hypercholesterolemia The patient's cholesterol management plan includes achieving an LDL goal of less than 130 mg/dL and triglycerides of less than 150 mg/dL. Her last LDL cholesterol level was 125 mg/dL, recorded in October 2023. 3. Gastroesophageal Reflux Disease (Gerd) The patient is advised to follow a no-fat diet and engage in regular exercise to manage her GERD symptoms. 4. Nephrolithiasis, Left The patient has a history of left nephrolithiasis, but no specific management plan was discussed during this visit. 5. Obstructive Sleep Apnea The patient previously used a CPAP machine but discontinued it due to discomfort. A new sleep study is scheduled for June to reassess her condition and management options. Discussion Notes During the visit, we discussed the patient's preference for medication over surgery for weight management and the importance of continuing with dietary modifications and physical activity. We also reviewed her cholesterol management goals and the need for a new sleep study to reassess her obstructive sleep apnea. Patient Instructions - Continue with increased physical activity and dietary modifications to support weight loss. - Follow the no-fat diet to manage GERD symptoms. - Attend the scheduled sleep study in June to reassess obstructive sleep apnea management. - Continue taking vitamin D supplements, even if occasionally forgotten.
[2025-05-29 15:49] VITALS: BP 130/80
--- OUTSIDE RECORDS SUMMARY | 2025-05-29 16:25 | XMS_ITS | Encounter Summary ---
Author Organization [facility] Address [address] [place] [address] [place] [address] Phone Care Team Providers Care Oil Field Worker Name Role Phone Charissa Adams MD Primary Care Provider [phone] Encounter Details Date Type Department Care Team (Late st Contact Info) Description 04/07/2024 Procedure Pass [facility], [address] [address] Social History Tobacco Use Types Packs/Day Years Used Date Smoking Tobacco: Never Smokeless Tobacco: Never Alcohol Use Standard Drinks/Week Comments Never 0 [...] on filedocumented in this encounter Care Teams Oil Field Worker Relationship Specialty Start Date End Date Charissa Adams MD [address] [place] [address] [address] [place] [phone] PCP - General Internal Medicine 07/14/22 documented as of this encounter Additional Source Comments The information contained in this document represents components of the legal health record. It is not the complete legal health record.[facility]
--- OUTSIDE RECORDS SUMMARY | 2025-05-29 16:25 | XMS_ITS | Encounter Summary ---
Author Organization [facility] Address [address] [place] [address] Phone Care Team Providers Care Debate Director Name Role Phone Briseyda Latif MD Primary Care Provider [phone] Encounter Details Date Type Department Care Team (Late st Contact Info) Description 02/05/2010 Documentation [facility] Family Medicine [address] [place] [address] Family Medicine, Physician [address] [place], [place] [id number] Social History Tobacco Use Types Packs/Day Years [...] on filedocumented in this encounter Care Teams Debate Director Relationship Specialty Start Date End Date Birseyda Latif MD [address] [place], [place] [address]JENNIFER [address] PCP - General 05/07/17 11/11/22 documented as of this encounter
--- OUTSIDE RECORDS SUMMARY | 2025-05-29 16:25 | XMS_ITS | Encounter Summary ---
Author Organization [facility] Address [address] [place] [address] Phone Care Team Providers Care Extras Casting Director Name Role Phone Briseyda Latif MD Primary Care Provider [phone] Encounter Details Date Type Department Care Team (Late st Contact Info) Description 02/07/2014 Documentation EM Family Medicine [address] [place] [address] Family Medicine, Physician [address] [place], [place] [id number] Social History Tobacco Use Types Packs/Day Years [...] on filedocumented in this encounter Care Teams Extras Casting Director Relationship Specialty Start Date End Date Briseyda Latif MD [address] [place], [place] [address]J[place]ER [address] PCP - General 05/07/17 11/11/22 documented as of this encounter
--- OUTSIDE RECORDS SUMMARY | 2025-05-29 16:25 | XMS_ITS | Encounter Summary ---
Author Organization [facility] Address [address] [place] [address] Phone Care Team Providers Care Homebirth Midwife Name Role Phone Briseyda Latif MD Primary Care Provider [phone] Encounter Details Date Type Department Care Team (Late st Contact Info) Description 12/20/2012 Documentation EM Family Medicine [address] [place] [address] Family Medicine, Physician [address] [place], [place] [id number] Social History Tobacco Use Types Packs/Day Years [...] on filedocumented in this encounter Care Teams Homebirth Midwife Relationship Specialty Start Date End Date Briseyda Latif MD [address] [place], [place] [address]J[place]ER [address] PCP - General 05/07/17 11/11/22 documented as of this encounter
--- OUTSIDE RECORDS SUMMARY | 2025-05-29 16:25 | XMS_ITS | Clinical Summary ---
Author Organization [facility] Address [address] [place] [address] Phone Care Team Providers Care Recyclable Materials Distributor Name Role Phone Unavailable Primary Care Provider [...] 88 10/04/2014 12:00 AM EST Temperature 37.1 C (98.8 F) 08/02/2014 12:00 AM EST Respiratory Rate - - Oxygen Saturation 97% [...] 02/24/1995, Additional history exists Influenza Vaccines (#1) 2025 07/31/20 14, 08/04/2013, 05/26/2012, Additional history exists COVID-19 Vaccine ( season) 2025 Hepatitis B Vaccines Completed 02/24/1995, 1994, 1994 [...]
--- OUTSIDE RECORDS SUMMARY | 2025-05-29 16:25 | XMS_ITS | Encounter Summary ---
Author Organization [facility] Address [address] [place] [address] Phone Care Team Providers Care Vat Overhauler Name Role Phone Briseyda Latif MD Primary Care Provider [phone] Encounter Details Date Type Department Care Team (Late st Contact Info) Description 05/13/2017 Conversion Encounter [facility] [address] [place] [address] Social History Tobacco Use Types Packs/Day Years [...] on filedocumented in this encounter Care Teams Vat Overhauler Relationship Specialty Start Date End Date Briseyda Latif MD [address] [place] [address] PCP - General 05/07/17 11/11/22 documented as of this encounter
--- OUTSIDE RECORDS SUMMARY | 2025-05-29 16:25 | XMS_ITS | Clinical Summary ---
Author Organization [facility] Address [address] [place] [address] Phone Care Team Providers Care Teaching Music Lessons Name Role Phone Charissa Adams MD Primary Care Provider [phone] Allergies No known active allergies Medications cholecalciferol [...] patient's age to complete this topic Insurance [facility] Care Teams Teaching Music Lessons Relationship Specialty Start Date End Date Charissa Adams MD [address] [place] [address] [address] [facility] [place] [address] PCP - General Internal Medicine 11/20/24
--- OUTSIDE RECORDS SUMMARY | 2025-05-29 16:25 | XMS_ITS | Encounter Summary ---
Author Organization [facility] Address [address] [place] [address] Phone Care Team Providers Care Patient Care Director Name Role Phone Charissa Adams MD Primary Care Provider [phone] Encounter Details Date Type Department Care Team (Late st Contact Info) Description 09/23/2022 Procedure Pass [place] Admitting Dept - Virtual Department [address] [place] [address] Social History Tobacco Use Types Packs/Day Years Used Date Smoking Tobacco: Never Smokeless Tobacco: Never Alcohol Use Standard Drinks/Week Comments Never 0 (1 standard drink = 0.6 oz pur e alcohol) Intimate Partner Violence Answer Date R ecorded [...] on filedocumented in this encounter Care Teams Patient Care Director Relationship Specialty Start Date End Date Charissa Adams MD [address] [place] [address] Drive [address] [place] [address] PCP - General Internal Medicine 07/14/22 documented as of this encounter Additional Source Comments The information contained in this document represents components of the legal health record. It is not the complete legal health record.[facility]
--- OUTSIDE RECORDS SUMMARY | 2025-05-29 16:25 | XMS_ITS | Clinical Summary ---
Author Organization [facility] Address [address] [place] [address] Phone Care Team Providers Care Second Shift Supervisor Name Role Phone Charissa Adams MD Primary Care Provider [phone] Allergies No known active allergies Medications omeprazole [...] Not on file Insurance [employer] [place] [address] [place] [address] [place] [address] [place] [address] [place] [address] [place] [address] [place] [address] [place] [address] [place] [place] [address] ACO Care Teams Second Shift Supervisor Relationship Specialty Start Date End Date Charissa Adams MD [address] [place] [address] [address] [place] [phone] PCP - General Internal Medicine 07/14/22 Additional Source Comments The information contained in this document represents components of the legal health record. It is not the complete legal health record.[facility]
--- OUTSIDE RECORDS SUMMARY | 2025-05-29 16:25 | XMS_ITS | Clinical Summary ---
Author Organization [facility] Address [address] [place] [address] [address] [place] [address] Care Team Providers Care Specialist Icu Name Role Phone Unavailable Primary Care Provider Unavailabl e Allergies No known active allergies Medications doxepin (SINEquan) 10 MG capsule Take 10 mg by mouth at bedtime. Active omeprazole (PriLOSEC) [address] capsule Take 20 mg by mouth before breakfast. Do not crush or chew. Active cyclobenzaprine (Flexeril) 5 MG tablet Take by mouth. Active ergocalciferol (Vitamin D-2) 1.25 MG (42837 UT) capsule Take 1.25 mg by mouth [...] Upcoming Encounters Date Type Department Care Team ([facility] st Contact Info) Description 07/05/2025 3:00 PM EDT Office Visit [facility] [address] [place] [address] Jackie Anna [address] [place] [address] Health Maintenance Due Date Last Done Comments [...] Most Recently Relevant to Health Maintenance Insurance [facility] MEDICAID STAND ADULT
--- OUTSIDE RECORDS SUMMARY | 2025-05-29 16:25 | XMS_ITS | Encounter Summary ---
Author Organization [facility] Address [address] [place] [address] Phone Care Team Providers Care Guidance Director Name Role Phone Briseyda Latif MD Primary Care Provider [phone] Encounter Details Date Type Department Care Team (Late st Contact Info) Description 09/07/2014 Documentation [facility] Medicine [address] [place] [address] Family Medicine, Physician [address] [place], [place] [address] Social History Tobacco Use Types Packs/Day Years [...] on filedocumented in this encounter Care Teams Guidance Director Relationship Specialty Start Date End Date Briseyda Latif MD [address] [place], [place] [address]J[place]ER [address] PCP - General 05/07/17 11/11/22 documented as of this encounter
--- OUTSIDE RECORDS SUMMARY | 2025-05-29 16:25 | XMS_ITS | Encounter Summary ---
Author Organization [facility] Address [address] [place] [address] Phone Care Team Providers Care Payroll Accounting Clerk Name Role Phone Briseyda Latif MD Primary Care Provider [phone] Encounter Details Date Type Department Care Team (Late st Contact Info) Description 07/31/2014 Documentation EM Family Medicine [address] [place] [address] Family Medicine, Physician [address] [place], [place] [phone] Social History Tobacco Use Types Packs/Day Years [...] on filedocumented in this encounter Care Teams Payroll Accounting Clerk Relationship Specialty Start Date End Date Briseyda Latif MD [address] [place], [place] [address]J[place]ER [address] PCP - General 05/07/17 11/11/22 documented as of this encounter
== END 2025-05-29 15:56 | disposition home or self-care (01) ==
LOC: HO.HMCH 15:18
PROVIDERS: PCP Internal Medicine; Visit Provider Internal Medicine
DX: E66.01 Morbid (severe) obesity due to excess calories (principal); Z68.43 Body mass index [BMI] 50.0-59.9, adult; E78.00 Pure hypercholesterolemia, unspecified; K21.9 Gastro-esophageal reflux disease without esophagitis; K76.0 Fatty (change of) liver, not elsewhere classified; G47.33 Obstructive sleep apnea (adult) (pediatric); M25.572 Pain in left ankle and joints of left foot

== ENCOUNTER → 2025-05-29 15:17 | Outpatient (BNVA) | payer OTHER, SELFPAY | PROVIDERS: PCP Internal Medicine; Visit Provider Internal Medicine | DX: G47.33 Obstructive sleep apnea (adult) (pediatric) (principal); E66.01 Morbid (severe) obesity due to excess calories; E78.00 Pure hypercholesterolemia, unspecified; K21.9 Gastro-esophageal reflux disease without esophagitis; K76.0 Fatty (change of) liver, not elsewhere classified; M25.572 Pain in left ankle and joints of left foot; N20.0 Calculus of kidney; Z68.43 Body mass index [BMI] 50.0-59.9, adult | CPT/HCPCS: 99212 ==

== ENCOUNTER 2025-07-18 14:26 | Outpatient (AMB) | payer OTHER, SELFPAY ==
--- NOTE | 2025-07-18 14:29 | AM.OFFVISNUR ---
Intake Visit Reasons: Flu Shot Allergies No Known Allergies (No Known Allergies*) Allergy (Verified 05/29/25 15:25) Office Procedures Flu Questionnaire Does the patient have a severe egg allergy?: No Does the patient have severe life threatening allergies?: No Does the patient have a fever or illness today?: No Has the patient ever had Guillain-[place] Syndrome?: No Has the patient ever had any past reaction to a flu shot?: No Immunizations Fluarix [id number] (PF) 45 mcg (15 mcg x 3)/0.5 mL IM syringe Performing Provider: Charissa Adams MD [facility] [facility] [facility] [place] [facility] Administered by: Sammi Sherman RN on 07/18/25 14:29 Dose Route Admin Location Dispensed Lot Number Expiration Date [facility] [employer] 0.5 mL IM Left Deltoid 0.5 mL [id number] 03/26/26 81048-375-04 [employer] VIS Given Date VIS Provided VIS Publication Date 07/18/25 Single Vaccine 24 Eligibility Eligibility Date Funding Source Not [facility] Eligible 07/18/25 Private Assessment & Plan Assessment & Plan Orders: Orders Influenza [id number] Immunization Today Z23 - Encounter for immunization Coding
--- OUTSIDE RECORDS SUMMARY | 2025-07-18 20:38 | XMS_ITS | Encounter Summary ---
Author Organization [facility] Address [address] [place] [address] Phone Care Team Providers Care Sheep Sticker Name Role Phone Briseyda Latif MD Primary Care Provider [phone] Encounter Details Date Type Department Care Team (Late st Contact Info) Description 05/13/2017 Conversion Encounter [facility] [address] [place] [address] Social History Tobacco Use Types Packs/Day Years [...] on filedocumented in this encounter Care Teams Sheep Sticker Relationship Specialty Start Date End Date Briseyda Latif MD [address] [place] [address] PCP - General 05/07/17 11/11/22 documented as of this encounter
--- OUTSIDE RECORDS SUMMARY | 2025-07-18 20:38 | XMS_ITS | Encounter Summary ---
Author Organization [facility] Address [address] [place] [address] [place] [address] Phone Care Team Providers Care Director Industrial Relations Name Role Phone Charissa Adams MD Primary Care Provider [phone] Encounter Details Date Type Department Care Team (Late st Contact Info) Description 04/07/2024 Procedure Pass [facility], [address] [address] Social History Tobacco Use Types Packs/Day Years [...] filedocumented in this encounter Care Teams Director Industrial Relations Relationship Specialty Start Date End Date Charissa Adams MD [address] [place] [address] Drive [address] [place] [phone] PCP - General Internal Medicine 07/14/22 documented as of this encounter Additional Source Comments The information contained in this document represents components of the legal health record. It is not the complete legal health record.[facility]
--- OUTSIDE RECORDS SUMMARY | 2025-07-18 20:38 | XMS_ITS | Clinical Summary ---
Author Organization [facility] Address [address] [place] [address] Phone Care Team Providers Care Cake Puncher Name Role Phone Charissa Adams MD Primary Care Provider [phone] Allergies No known active allergies Medications omeprazole [...] SMEAR 2015 Adult Td,Tdap Booster 01/06/2017 01/06/2007 INFLUENZA VACCINE (#1) 2025 COVID-19 VACCINE (2024-2 6 season) 2025 SMOKING STATUS SCREENING (On ce After 26 [...] Not on file Insurance ACO ACO ACO ACO ACO ACO ACO ACO ACO Care Teams Cake Puncher Relationship Specialty Start Date End Date Charissa Adams MD [address] [place] [address] PCP - General Internal Medicine 07/14/22 Additional Source Comments The information contained in this document represents components of the legal health record. It is not the complete legal health record.[facility]
--- OUTSIDE RECORDS SUMMARY | 2025-07-18 20:38 | XMS_ITS | Encounter Summary ---
Author Organization [facility] Address [address] [place] [address] Phone Care Team Providers Care Cinder Worker Name Role Phone Briseyda Latif MD Primary Care Provider [phone] Encounter Details Date Type Department Care Team (Late st Contact Info) Description 12/20/2012 Documentation EM Family Medicine [address] [place] [address] Family Medicine, Physician [address] [place], [place] [id number] Social History Tobacco Use Types Packs/Day Years [...] on filedocumented in this encounter Care Teams Cinder Worker Relationship Specialty Start Date End Date Briseyda Latif MD [address] [place], [place] [address]JENNIFER [address] PCP - General 05/07/17 11/11/22 documented as of this encounter
--- OUTSIDE RECORDS SUMMARY | 2025-07-18 20:38 | XMS_ITS | Clinical Summary ---
Author Organization [facility] Address [address] [place] [address] Phone Care Team Providers Care Skating Rink Ice Maker Name Role Phone Charissa Adams MD Primary Care Provider [phone] Allergies No known active allergies Medications cholecalciferol [...] Comments Cervical Cancer Screening: Pap Smear 2015 Depression Screening 09/27/2024 Cholesterol Screening (Lipid Panel) 11/20/2024 HIV Screening 11/20/2024 Hepatitis C Screening 11/20/2024 Social Influencers of Health Screening 11/20/2024 COVID-19 Vaccine ( season) 2025 07/22/2021, 07/01/2021 Influenza Vaccine (#1) 2025 , 08/10/2023, 08/06/2022, Additional history exists DTaP,Tdap,and Td Vaccines (7 - Td or Tdap) 11/17/2026 11/17/2016, 01/06/2007, 12/25/1998, Additional history exists RSV Immunization Adult Patients (1 - 1-dose 75+ series) 2069 Hepatitis [...] patient's age to complete this topic Insurance [employer] Care Teams Skating Rink Ice Maker Relationship Specialty Start Date End Date Charissa Adams MD [address] [place] [address] Dr [address] [facility] [place] [address] PCP - General Internal Medicine 11/20/24
--- OUTSIDE RECORDS SUMMARY | 2025-07-18 20:38 | XMS_ITS | Clinical Summary ---
Author Organization [employer] Address [address] [place] [address] [address] [place] [address] Care Team Providers Care Makeup Instructor Name Role Phone Unavailable Primary Care Provider Unavailabl e Allergies No known active allergies Medications doxepin (SINEquan) 10 MG capsule Take 10 mg by mouth at bedtime. Active omeprazole (PriLOSEC) [address] capsule Take 20 mg by mouth before breakfast. Do not crush or chew. Active cyclobenzaprine (Flexeril) 5 MG tablet Take by mouth. Activ e ergocalciferol (Vitamin D-2) 1.25 MG (34649 UT) capsule Take 1.25 mg by mouth 1 (one) time per week. Active phentermine 37.5 MG capsule TAKE 37.5 MG ORALLY DAILY MUST ADMINISTER 30 MINUTES BEFORE OR 1-2 HOURS AFTER BREAKFAST Active Encounters Date Type Department Care Team Description 07/05/2025 3:00 PM EDT Office Visit [facility] [address] [place] [address] Jackie Anna 06/28/2025 Travel from Last 3 Months Social History Tobacco [...] Mass Index - - Plan of Treatment Health Maintenance Due Date Last Done Comments Depression Screening 1994 HIV Screening 1994 Lipid Panel 1994 SDOH Screening 1994 Disability Screening 1994 Alcohol/Substance Use Screening 2006 Family Planning (PISQ) 2009 Hepatitis C Screening 2012 Pap Smear 2015 Cervical Cancer Screening 2024 HPV/Cotest 2024 COVID-19 Vaccine ( season) 2025 07/22/2021, 07/01/2021 Influenza Vaccine (#1) 2025 , 08/10/2023, 08/06/2022, Additional history exists Dental X-Ray: Bitewings 06/30/2025 06/29/2024 Dental Oral Exam 07/04/2025 01/01/2025, 11/2023, 12/21/2023, Additional history exists Tobacco Screening 01/01/2026 01/01/2025 Dental Prophylaxis 01/04/2026 07/05/2025, 0 01/01/2025, 06/29/2024, Additional history exists Dental X-Ray: Full Mouth 05/18/2026 05/17/2023 DTaP/Tdap/Td [...] Procedure Name Priority Date/Time Associated Diagnosis Comments CASE PRESENTATION, DETAILED AND EXTENSIVE TREATMENT PLANNING Routine 07/05/2025 3:00 PM EDT PROPHYLAXIS - ADULT Routine 07/05/2025 3 :00 PM EDT PERIODIC ORAL EVALUATION - ESTABLISHED PATIENT Routine 01/01/2025 3:00 PM EDT BITEWINGS - 2 RADIOGRAPHIC IMAGES Routine 06/29/2024 3:00 PM EDT PANORAMIC RADIOGRAPHIC IMAGE Routine 05/17/2023 8:00 AM EDT Encounter for dental examination from Last 3 Months or Most Recently Relevant to Health Maintenance Insurance [facility] MED[facility] STAND ADULT
--- OUTSIDE RECORDS SUMMARY | 2025-07-18 20:38 | XMS_ITS | Encounter Summary ---
Author Organization [facility] Address [address] [place] [address] Phone Care Team Providers Care Braille Coder Name Role Phone Charissa Adams MD Primary Care Provider [phone] Encounter Details Date Type Department Care Team (Late st Contact Info) Description 09/23/2022 Procedure Pass [place] Admitting Dept - Virtual Department [address] [place] [address] Social History Tobacco Use Types Packs/Day Years [...] on filedocumented in this encounter Care Teams Braille Coder Relationship Specialty Start Date End Date Charissa Adams MD [address] [place] [address] Drive [address] [place] [address] PCP - General Internal Medicine 07/14/22 documented as of this encounter Additional Source Comments The information contained in this document represents components of the legal health record. It is not the complete legal health record.[facility]
--- OUTSIDE RECORDS SUMMARY | 2025-07-18 20:38 | XMS_ITS | Clinical Summary ---
Author Organization [facility] Address [address] [place] [address] Phone Care Team Providers Care Hypoid Gear Tester Name Role Phone Unavailable Primary Care Provider [...]
--- OUTSIDE RECORDS SUMMARY | 2025-07-18 20:38 | XMS_ITS | Encounter Summary ---
Author Organization [facility] Address [address] [place] [address] Phone Care Team Providers Care Buffet Server Name Role Phone Briseyda Latif MD Primary Care Provider [phone] Encounter Details Date Type Department Care Team (Late st Contact Info) Description 07/31/2014 Documentation EM Family Medicine [address] [place] [address] Family Medicine, Physician [address] [place], [place] [id number] Social History Tobacco Use Types Packs/Day Years [...] on filedocumented in this encounter Care Teams Buffet Server Relationship Specialty Start Date End Date Briseyda Latif MD [address] [place], [place] [address]JENNIFER [address] PCP - General 05/07/17 11/11/22 documented as of this encounter
--- OUTSIDE RECORDS SUMMARY | 2025-07-18 20:38 | XMS_ITS | Encounter Summary ---
Author Organization [facility] Address [address] [place] [address] Phone Care Team Providers Care Laundry Sorter Name Role Phone Briseyda Latif MD Primary Care Provider [phone] Encounter Details Date Type Department Care Team (Late st Contact Info) Description 02/05/2010 Documentation EM Family Medicine [address] [place] [address] Family Medicine, Physician [address] [place], [place] [phone] Social History Tobacco Use Types Packs/Day Years [...] on filedocumented in this encounter Care Teams Laundry Sorter Relationship Specialty Start Date End Date Briseyda Latif MD [address] [place] [address] [place] [address] PCP - General 05/07/17 11/11/22 documented as of this encounter
--- OUTSIDE RECORDS SUMMARY | 2025-07-18 20:38 | XMS_ITS | Encounter Summary ---
Author Organization [facility] Address [address] [place] [address] Phone Care Team Providers Care Crepe Laminator Operator Name Role Phone Briseyda Latif MD Primary Care Provider [phone] Encounter Details Date Type Department Care Team (Late st Contact Info) Description 09/07/2014 Documentation [facility] Family Medicine [address] [place], [place] [phone] Family Medicine, Physician [address] [place], [place] [address] Social History Tobacco Use Types Packs/Day Years [...] on filedocumented in this encounter Care Teams Crepe Laminator Operator Relationship Specialty Start Date End Date Briseyda Latif MD [address] [place], [place] [address]JENNIFER [address] PCP - General 05/07/17 11/11/22 documented as of this encounter
--- OUTSIDE RECORDS SUMMARY | 2025-07-18 20:38 | XMS_ITS | Encounter Summary ---
Author Organization [facility] Address [address] [place] [address] Phone Care Team Providers Care Resource Teacher Name Role Phone Briseyda Latif MD Primary Care Provider [phone] Encounter Details Date Type Department Care Team (Late st Contact Info) Description 02/07/2014 Documentation EM Family Medicine [address] [place] [address] Family Medicine, Physician [address] [place], [place] [phone] Social History Tobacco Use Types Packs/Day Years [...] on filedocumented in this encounter Care Teams Resource Teacher Relationship Specialty Start Date End Date Briseyda Latif MD [address] [place], [place] [address]JENNIFER [address] PCP - General 05/07/17 11/11/22 documented as of this encounter
== END 2025-07-18 14:38 | disposition home or self-care (01) ==
LOC: HO.HMCH 14:26
PROVIDERS: PCP Internal Medicine
DX: Z23 Encounter for immunization (principal)

== ENCOUNTER → 2025-07-18 14:26 | Outpatient (BNVA) | payer OTHER, SELFPAY | PROVIDERS: PCP Internal Medicine | DX: Z23 Encounter for immunization (principal) | CPT/HCPCS: 90471; 90656 ==

== ENCOUNTER 2025-08-10 11:03 | Outpatient (AMB) | payer OTHER, SELFPAY ==
--- NOTE | 2025-08-10 11:14 | A.OFFPC_ITS ---
Vital Signs 08/10/25 11:15 Height 5 ft 3 in Weight 287 lb 2 oz BMI 50.9 BP 130/74 Blood Pressure Location Lt brachial Position Sitting Pulse 107 H Pulse Source Pulse Oximeter Temp 97.3 F Temp Source Temporal Artery Scan Pulse Oximetry (%) 98 Oxygen Delivery Method Room Air Intake Visit Reasons: [facility] [place] 08/05 Intake Note: Patient is here to follow-up after a visit the emergency department at [facility] on 08/05/25. Ux Researcher Required: No Senior Quality Assurance Specialist: Not Required per policy Accompanied by: Self / Same As Patient Allergies No Known Allergies (No Known Allergies*) Allergy (Verified 08/10/25 11:15) Medication List - Last Reconciled 08/10/25 by Jackie Saravia NP cholecalciferol (vitamin D3) 50 mcg PO DAILY cyclobenzaprine 5 mg PO TID PRN 30 days diclofenac sodium 1% (Voltaren Arthritis Pain) 4 grams topical QID omeprazole 20 mg PO DAILY phentermine 37.5 mg PO DAILY sumatriptan succinate (Imitrex) Take 1 tablet at onset of headache; If no relief may repeat 1 tab after at least 2 hrs; max = 4 tabs/24 hr PO topiramate XR 25 mg PO DAILY Tobacco use date assessed: 08/10/25 Dental Screening Dental Screen Date: 08/10/25 Did you have a dental visit in the last 12 months?: Yes Did you have a dental problem in the last 6 months where you did not have access to dental care?: No Was dental information given to patient?: Patient has dentist HPI HPI Comments 2 History of Present Illness Details 30-year-old female presents today for ED F follow-up after [facility]-ED visit on 08/05/25 for a 3-day history of persistent headache with associated eye pressure. She reports taking Tylenol multiple times daily with minimal relief. History of migraines treated ?a couple years ago,? but she has not experienced severe headaches in the past 2 years and discontinued prior migraine medication (unable to recall name). Denies head trauma/injury. Denies nausea, vomiting, fevers, chills, diarrhea, or constipation. Denies phonophobia but endorses photophobia. No recent illness. [facility] Medical History (Updated 08/10/25 @ 11:45 by Jackie Saravia NP) Migraine headache without aura Obesity Valvular heart disease Left ankle sprain Left ankle injury Near syncope Cervical cancer screening Hypercholesterolemia GERD (gastroesophageal reflux disease) Migraine ADHD Vitamin D deficiency Surgical History Hx of wisdom tooth extraction H/O heart surgery Family History Father Diabetes Mother Diabetes Hypertension Maternal Aunt Pancreatic cancer Maternal Grandmother Breast cancer Social History Housing: House Alcohol intake: never Patient Tobacco Use Status: Never used Tobacco Tobacco use type: Cigarette e-Cigarette/Vaping Use: Never Used Second Hand Smoke Exposure: No service: No Current occupational status: employed 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 occupation: [employer] /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 Gender identity: Female Cognitive needs: No Hearing needs: No Vision needs: Yes (Glasses) Female Reproductive History Menstrual Age of Menarche: 13 Questionnaire Thrive Questionnaire Date Thrive assessed: 10/29/24 I am a: Patient What is your living situation today?: I have a steady place to live Within the past 12 months, did the food you bought not last and you didn't have the money to get more?: Never true Within the past 12 months, did you worry whether your food would run out before you got money to buy more?: Never true Do you have trouble paying for medicines?: No Do you have trouble getting transportation to medical appointments?: No Do you have trouble paying your heating and electricity bill?: No Do you have trouble taking care of your child, family member or friend?: No Do you have trouble with day-to-day activities such as bathing, preparing meals, shopping, managing finances, etc.?: No Are you currently unemployed and looking for a job?: No Are you interested in more education?: I choose not to answer this question Please select the resources that you would like help with: None Currently or been in a relationship where the following occur: No concerns reported THRIVE Score: 0 HEMANT-7 AMB Questionnaire HEMANT-7 Date HEMANT - 7 assessed: 11/03/24 Source: Developed by Drs. Godwin Fernandez, Sarah Arambula, Tony Kirkpatrick and colleagues, with an educational compa from [employer] Review of Systems Const All systems reviewed & are unremarkable except as noted in HPI and below Physical exam (Primary Care) Vital Signs: Last Vital Signs Temp 97.3 F 08/10/25 11:15 Pulse 107 H 08/10/25 11:15 BP 130/74 08/10/25 11:15 Pulse Ox 98 08/10/25 11:15 Oxygen Delivery Method Room Air 08/10/25 11:15 BMI result Body Mass Index 50.9 Tobacco/Smoking Status: Tobacco use Status Tobacco use date assessed 08/10/25 08/10/25 11:20 Patient Tobacco Use Status Never used Tobacco 08/10/25 11:20 Tobacco use type Cigarette 08/10/25 11:20 e-Cigarette/Vaping Use Never Used 08/10/25 11:20 Thrive Assessment: Date of Thrive Assessment Date Thrive assessed 10/29/24 08/10/25 11:20 Currently or been in a relationship where the following occur: No concerns reported Const General: no acute distress Nutritional Appearance: obese Orientation/consciousness: patient oriented x3 HENMT Head: Yes normocephalic Resp Effort & Inspection: normal respiratory effort Cardio Heart sounds: S1 normal heart sound present and S2 normal heart sound present Neuro General: patient oriented x3, gait normal and moves all extremities Psych Speech and movement: Normal speech and movement present Coding Level of Care Code Est Pt Level 4 (30478) Diagnoses Migraine without aura and without status migrainosus, not intractable G43.009 Intractability: not intractable Status migrainosus presence: without status migrainosus Time Spent (min) 25 Assessment & Plan Assessment & Plan (1) Migraine headache without aura: Code(s): G43.009 - Migraine without aura, not intractable, without status migrainosus Category: Medical Qualifiers: Intractability: not intractable Status migrainosus presence: without status migrainosus Qualified Code(s): G43.009 - Migraine without aura, not intractable, without status migrainosus Plan: Recurrent Migraine Headache ? Symptoms consistent with migraine given photophobia, history of migraine, lack of response to Tylenol, and absence of infectious or neurological red flags. Started Her on Topiramate 50 mg. Had a detailed discussion on Med side effects. Warned not get while on medication. Pt not sexually active - she is waiting for marriage before having children. Started her on Imitrex - advised to take medication on the first onset of headache. Pt to f/u with PCP for medication refills and titration. Discuss avoiding overuse of OTC analgesics to prevent medication-overuse headaches. Encouraged hydration, regular sleep schedule, and avoidance of known triggers. Encouraged follow-up for VIKTORIA management (CPAP use). Reviewed weight management strategies; daily exercise. Seek emergency care for red flag symptoms: severe sudden-onset headache, neuro deficits, fever with neck stiffness, persistent vomiting, visual changes. Will place a referral to Neuro. Medications: New topiramate XR 25 mg PO DAILY 30 caps 2RF G43.009 - Migraine without aura, not intractable, without status migrainosus sumatriptan succinate (Imitrex) Take 1 tablet at onset of headache; If no relief may repeat 1 tab after at least 2 hrs; max = 4 tabs/24 hr PO 14 tabs 0RF G43.009 - Migraine without aura, not intractable, without status migrainosus
[2025-08-10 11:15] VITALS: BP 130/74; PULSE 107; TEMP 36.3; O2SAT 98; BMI 50.9
== END 2025-08-10 11:48 | disposition home or self-care (01) ==
LOC: HO.HMCH 11:03
PROVIDERS: PCP Internal Medicine; Visit Provider Nurse Practitioner Family
DX: G43.009 Migraine without aura, not intractable, without status migrainosus (principal)

== ENCOUNTER → 2025-08-10 11:03 | Outpatient (BNVA) | payer OTHER, SELFPAY | PROVIDERS: PCP Internal Medicine; Visit Provider Nurse Practitioner Family | DX: G43.009 Migraine without aura, not intractable, without status migrainosus (principal); H53.149 Visual discomfort, unspecified; Z79.899 Other long term (current) drug therapy; Z09 Encounter for follow-up examination after completed treatment for conditions other than malignant neoplasm | CPT/HCPCS: 99212 ==

== ENCOUNTER 2025-09-17 15:45 | Outpatient (AMB) | payer OTHER, SELFPAY ==
--- NOTE | 2025-09-17 15:53 | MHC.PC.OV ---
Vital Signs 09/17/25 15:54 Height 5 ft 3 in Weight 287 lb BMI 50.8 BP 142/98 H Blood Pressure Location Lt brachial Position Sitting Pulse 97 Pulse Source Pulse Oximeter Pulse Oximetry (%) 99 Oxygen Delivery Method Room Air Intake Visit Reasons: Obstructive sleep apnea Interpreter And Translator Required: No Accompanied by: Self / Same As Patient Allergies No Known Allergies (No Known Allergies*) Allergy (Verified 09/17/25 15:54) Medication List - Last Reconciled 09/17/25 by Charissa Adams MD cholecalciferol (vitamin D3) 50 mcg PO DAILY cyclobenzaprine 5 mg PO TID PRN 30 days diclofenac sodium 1% (Voltaren Arthritis Pain) 4 grams topical QID omeprazole 20 mg PO DAILY phentermine 37.5 mg PO DAILY phentermine 37.5 mg PO DAILY phentermine 37.5 mg PO DAILY sumatriptan succinate (Imitrex) Take 1 tablet at onset of headache; If no relief may repeat 1 tab after at least 2 hrs; max = 4 tabs/24 hr PO topiramate XR 25 mg PO DAILY Tobacco use date assessed: 09/17/25 Dental Screening Dental Screen Date: 09/17/25 Did you have a dental visit in the last 12 months?: Yes Did you have a dental problem in the last 6 months where you did not have access to dental care?: No Was dental information given to patient?: Patient has dentist HPI HPI Comments History of Present Illness Details History of Present Illness The patient is a 30 year old female with morbid obesity (BMI 50.8) presenting for follow-up on several chronic conditions, including hypercholesterolemia, left nephrolithiasis, GERD, obstructive sleep apnea, and migraines. She was last seen in May 2025. Regarding her migraines, the patient had an emergency room visit on August 05 for a severe migraine, during which she received IV fluids, Toradol, Reglan, and Decadron. She followed up with a nurse practitioner on August 10 and was prescribed Topamax and sumatriptan, though she has not taken either medication. She believes the recent episode was triggered by lack of sleep while helping her sister move, and the headache resolved after she was able to rest. For weight management, the patient was started on phentermine in May and reports a weight loss of about 20 pounds. For her GERD and hypercholesterolemia, a plan of a low-fat diet and exercise was previously recommended. Blood work from October 2024 showed an LDL of 125 mg/dL and triglycerides of 91 mg/dL, with other labs including CBC, electrolytes, renal, and liver function being normal, aside from a low vitamin B12. Regarding obstructive sleep apnea, the patient is not using her CPAP machine because she found it uncomfortable. She was evaluated for a dental device but was told she did not qualify. She notes her sleep apnea has improved with weight loss. The patient also reports an issue with her left ankle after receiving an injection at a different facility. Following the injection, her foot went numb and she now experiences a shocking sensation with touch or massage, suggesting possible nerve damage. She is now being seen at [facility] ([facility]) for this issue. Health Maintenance - Weight management: The patient is on phentermine and has lost approximately 20 pounds since May. - Diet and exercise: A low-fat diet and exercise were previously recommended for management of hypercholesterolemia and GERD. - Obstructive sleep apnea management: Previously discussed the use of CPAP more than 4 hours a night. - Vaccinations: The patient confirms she is up-to-date with her vaccines. - Future care: A complete physical exam will be scheduled at a later date. Social History - Exercise: The patient reports she is exercising outside. - Weight management: The patient is actively engaged in weight loss, taking phentermine, and reports a 20-pound weight loss. Results - Labs (October 2024): - Blood count: Normal - Electrolytes and renal function: Normal - Liver function: Normal - Vitamin B12: Low - Lipid panel: LDL 125 mg/dL, Triglycerides 91 mg/dL - Thyroid function: Normal [facility] Medical History (Updated 09/17/25 @ 16:30 by Charissa Adams MD) Migraine headache without aura Obesity Valvular heart disease Left ankle sprain Left ankle injury Near syncope Cervical cancer screening Hypercholesterolemia GERD (gastroesophageal reflux disease) Migraine ADHD Vitamin D deficiency Surgical History Hx of wisdom tooth extraction H/O heart surgery Family History Father Diabetes Mother Diabetes Hypertension Maternal Aunt Pancreatic cancer Maternal Grandmother Breast cancer Social History (Reviewed 09/17/25 @ 15:54 by VEENA Lambert Housing: House Alcohol intake: never Patient Tobacco Use Status: Never used Tobacco Tobacco use type: Cigarette e-Cigarette/Vaping Use: Never Used Second Hand Smoke Exposure: No service: No Current occupational status: employed 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 1. Little interest or pleasure in doing things: not at all 2. Feeling down, depressed, or hopeless: not at all 3. Trouble falling or staying asleep, or sleeping too much: several days 4. Feeling tired or having little energy: not at all 5. Poor appetite or overeating: not at all 6. Feeling bad about yourself - or that you are a failure or have let yourself or your family down: not at all 7. Trouble concentrating on things, such as reading the newspaper or watching television: not at all 8. Moving or speaking so slowly that other people could have noticed. Or the opposite - being so fidgety or restless that you have been moving around a lot more than usual: not at all 9. Thoughts that you would be better off or of hurting yourself in some way: not at all Total score: 1 Source: Developed by Drs. Godwin Fernandez, Sarah Arambula, Tony Kirkpatrick and colleagues, with an educational compa from [employer]. Thrive Questionnaire Date Thrive assessed: 09/17/25 What is your living situation today?: I have a steady place to live Within the past 12 months, did the food you bought not last and you didn't have the money to get more?: Never true Within the past 12 months, did you worry whether your food would run out before you got money to buy more?: Never true Do you have trouble paying for medicines?: No Do you have trouble getting transportation to medical appointments?: No Do you have trouble paying your heating and electricity bill?: No Do you have trouble taking care of your child, family member or friend?: No Do you have trouble with day-to-day activities such as bathing, preparing meals, shopping, managing finances, etc.?: No Are you currently unemployed and looking for a job?: No Are you interested in more education?: I choose not to answer this question Please select the resources that you would like help with: None Currently or been in a relationship where the following occur: No concerns reported THRIVE Score: 0 AUDIT C Alcohol Use Questionnaire (AUDIT-C) 1. How often do you have a drink containing alcohol?: Never 3. How often do you have six or more drinks on one occasion?: Never Total Score: 0 HEMANT-7 AMB Questionnaire HEMANT-7 Date HEMANT - 7 assessed: 09/17/25 Feeling nervous, anxious, or on edge: 0 = Not at all Not being able to stop or control worryin = Not at all Worrying too much about different things: 0 = Not at all Trouble relaxin = Not at all Being so restless that it is hard to sit still: 0 = Not at all Becoming easily annoyed or irritable: 0 = Not at all Feeling afraid as if something awful might happen: 0 = Not at all Total HEMANT-7 score (0-4 normal; 5-9 mild; 10-14 moderate; 15-21 severe): 0 Source: Developed by Drs. Godwin Fernandez, Sarah Arambula, Tony Kirkpatrick and colleagues, with an educational compa from [employer]. Review of Systems Narrative Review of Systems - Neurological: Reports migraines, which she associates with lack of sleep. Reports numbness and a shocking sensation in her left foot and ankle. Denies history of head trauma. - Respiratory: Reports a chronic cough that has recently worsened. Denies wheezing. - Cardiovascular: Denies palpitations while taking phentermine. - Constitutional: Denies fever. Physical exam (Primary Care) Vital Signs: Last Vital Signs Pulse 97 09/17/25 15:54 BP 142/98 H 09/17/25 15:54 Pulse Ox 99 09/17/25 15:54 Oxygen Delivery Method Room Air 09/17/25 15:54 BMI result Body Mass Index 50.8 Tobacco/Smoking Status: Tobacco use Status Tobacco use date assessed 09/17/25 09/17/25 15:58 Patient Tobacco Use Status Never used Tobacco 09/17/25 15:58 Tobacco use type Cigarette 09/17/25 15:58 e-Cigarette/Vaping Use Never Used 09/17/25 15:58 PHQ-9: PHQ-9 Score PHQ-9: Total score 1 09/17/25 16:22 Thrive Assessment: Date of Thrive Assessment Date Thrive assessed 09/17/25 09/17/25 15:58 Currently or been in a relationship where the following occur: No concerns reported Narrative Physical Exam Const General: alert; No acute distress Eyes Conjunctivae: conjunctivae normal Resp Auscultation: clear to auscultation bilaterally Cardio Rate: regular rate Rhythm: regular rhythm GI Inspection: Yes normal to inspection Extrem General: Yes normal to inspection and No edema Coding Level of Care Code Est Pt Level 4 (95264) Add On Problem Visit Only Diagnoses Morbid obesity with BMI of 50.0-59.9, adult E66.01; Z68.43 Hypercholesterolemia E78.00 Gastroesophageal reflux disease without esophagitis K21.9 Esophagitis presence: without esophagitis Fatty liver K76.0 Migraine without aura and without status migrainosus, not intractable G43.009 Intractability: not intractable Status migrainosus presence: without status migrainosus Obstructive sleep apnea G47.33 Ankle pain, left M25.572 Assessment & Plan Assessment & Plan (1) Morbid obesity with BMI of 50.0-59.9, adult: Code(s): E66.01 - Morbid (severe) obesity due to excess calories; Z68.43 - Body mass index [BMI] 50.0-59.9, adult Category: Medical Plan: Diet and exercise patient was placed on phentermine. going to weight management (2) Hypercholesterolemia: Code(s): E78.00 - Pure hypercholesterolemia, unspecified Category: Medical Plan: Avoid fried foods, chicken skin, eggs, butter margarine, pastries and meat. Be it pork or beef they have a lot of cholesterol LDL goal of less than 130 and triglyceride of less than 150 (3) GERD (gastroesophageal reflux disease): Code(s): K21.9 - Gastro-esophageal reflux disease without esophagitis Category: Medical Qualifiers: Esophagitis presence: without esophagitis Qualified Code(s): K21.9 - Gastro-esophageal reflux disease without esophagitis Plan: Avoid the foods that causes that usually spicy foods, tomato products, juices, coffee, soda and foods that your sensitive to. After eating do not lie down, allow 3-4 hours before in lie down. And keep the head of bed above 30 degrees to avoid the acid from going up. (4) Fatty liver: Code(s): K76.0 - Fatty (change of) liver, not elsewhere classified Category: Medical Plan: Low-fat diet and exercise (5) Migraine headache without aura: Code(s): G43.009 - Migraine without aura, not intractable, without status migrainosus Category: Medical Qualifiers: Intractability: not intractable Status migrainosus presence: without status migrainosus Qualified Code(s): G43.009 - Migraine without aura, not intractable, without status migrainosus Plan: Patient is advised to eat healthy, keep well hydrated, keep active and have adequate sleep. (6) Obstructive sleep apnea: Comment: Sleep study done 03/21/2024 results showing mild to moderate obstructive sleep apnea AHI of 18 advised CPAP therapy auto PAP mode 6-15 cm Code(s): G47.33 - Obstructive sleep apnea (adult) (pediatric) Category: Medical Plan: cannot tolerate CPAP, dental device does not qualify, wAS [facility] E[facility] (7) Ankle pain, left: Comment: will be seeing JOAQUIN Code(s): M25.572 - Pain in left ankle and joints of left foot Category: Medical Plan Plan Patient was informed and verbally consented to the use of an ambient scribe for clinic note documentation during this visit. 1. Morbid Obesity The patient is currently taking phentermine, which was started in May, and reports a 20-pound weight loss. She denies palpitations or other side effects. The cardiac risks associated with phentermine were discussed. She will continue with her current management through the weight management clinic. 2. Obstructive Sleep Apnea The patient is non-adherent with CPAP therapy due to discomfort. She was not a candidate for a dental device. A referral will be placed to an ENT specialist to discuss alternative treatment options. Surgical options, such as uvulopalatopharyngoplasty (UPPP), were mentioned as a major procedure with a variable success rate. 3. Migraine The patient has not been taking her prescribed Topamax and sumatriptan. The indications for each medication were explained: sumatriptan is to be taken as needed for an acute headache, while Topamax is a daily medication for frequent migraines. Given that her migraines are infrequent and seem to be triggered by lack of sleep, she will use sumatriptan as needed. 4. Left Ankle Pain The patient is experiencing numbness and a shocking sensation in her left ankle, possibly due to nerve damage from a prior injection. She is following up with an orthopedist and is scheduled to have a new MRI and nerve testing to further evaluate the issue. 5. Hypercholesterolemia The patient's recent lab work shows an LDL of 125 mg/dL and triglycerides of 91 mg/dL, which meets the recommended goals of less than 130 and 150, respectively. Continue with diet and exercise for management. Discussion Notes I reviewed the patient's multiple ongoing health issues. For her obstructive sleep apnea, I acknowledged her intolerance to CPAP and made a referral to ENT to explore other options. We discussed that surgical options like UPPP are major procedures and not always 100% effective. I clarified the use of her migraine medications, advising that sumatriptan is for acute headaches and Topamax is for prevention if they become more frequent. We discussed that lack of sleep is a significant trigger for her. Regarding her weight management, I noted her success with phentermine but also discussed the potential cardiac side effects, as it is an 'upper' that can affect the heart and blood pressure. I noted her ankle issue and her ongoing care with orthopedics, including a planned MRI and nerve testing. Finally, I confirmed her vaccination status is current and advised we would schedule a complete physical at a future date. Patient Instructions - Continue taking phentermine for weight loss as directed by your weight management clinic. Be aware that this medication can affect your heart, so report any palpitations or other concerns. - For migraines, you can take the sumatriptan (Imitrex) medication when you feel a headache starting. You do not need to take it every day. The Topamax is for daily use only if your headaches become very frequent. - Try to get adequate sleep, as lack of sleep can trigger your migraines. - We have made a referral for you to see an Ear, Nose, and Throat (ENT) specialist to discuss other options for your sleep apnea. - Follow up with your dairy management specialist (Sonya) regarding your left ankle. Make sure to schedule the MRI and nerve testing they ordered. - We will schedule a complete physical exam for you at a later date. Please let us know if any problems arise before then. Orders: Referrals Ear/Nose/Throat Referral G47.33 - Obstructive sleep apnea (adult) (pediatric)
[2025-09-17 15:54] VITALS: BP 142/98; PULSE 97; O2SAT 99; BMI 50.8
--- OUTSIDE RECORDS SUMMARY | 2025-09-17 18:39 | XMS_ITS | Encounter Summary ---
Author Organization [facility] Address [address] [place] [address] Phone Care Team Providers Care Trapeze Performer Name Role Phone Briseyda Latif MD Primary Care Provider [phone] Encounter Details Date Type Department Care Team (Late st Contact Info) Description 05/13/2017 Conversion Encounter [facility] [place] [address] [place] [address] Social History Tobacco Use Types Packs/Day Years [...] on filedocumented in this encounter Care Teams Trapeze Performer Relationship Specialty Start Date End Date Briseyda Latif MD [address] [place] [address] PCP - General 05/07/17 11/11/22 documented as of this encounter
--- OUTSIDE RECORDS SUMMARY | 2025-09-17 18:39 | XMS_ITS | Encounter Summary ---
Author Organization [facility] Address [address] [place] [address] Phone Care Team Providers Care Program Support Assistant Name Role Phone Briseyda Latif MD Primary Care Provider [phone] Encounter Details Date Type Department Care Team (Late st Contact Info) Description 09/07/2014 Documentation [facility] Family Medicine [address] [place] [address] Family Medicine, Physician [address] [place], [place] [address] Social History Tobacco Use Types Packs/Day Years [...] on filedocumented in this encounter Care Teams Program Support Assistant Relationship Specialty Start Date End Date Briseyda Latif MD [address] [place], [place] [address]JENNIFER [address] PCP - General 05/07/17 11/11/22 documented as of this encounter
--- OUTSIDE RECORDS SUMMARY | 2025-09-17 18:39 | XMS_ITS | Encounter Summary ---
Author Organization [facility] Address [address] [place] [address] Phone Care Team Providers Care Vmware Architect Name Role Phone Charissa Adams MD Primary Care Provider [phone] Encounter Details Date Type Department Care Team (Late st Contact Info) Description 09/23/2022 Procedure Pass [place] Admitting Dept - Virtual Department [address] [place] [address] Social History Tobacco Use Types Packs/Day Years [...] on filedocumented in this encounter Care Teams Vmware Architect Relationship Specialty Start Date End Date Charissa Adams MD [address] [place] [address] Drive [address] [place] [address] PCP - General Internal Medicine 07/14/22 documented as of this encounter Additional Source Comments The information contained in this document represents components of the legal health record. It is not the complete legal health record.[facility]
--- OUTSIDE RECORDS SUMMARY | 2025-09-17 18:39 | XMS_ITS | Encounter Summary ---
Author Organization [facility] Address [address] [place] [address] Phone Care Team Providers Care Lining Layer Name Role Phone Briseyda Latif MD Primary Care Provider [phone] Encounter Details Date Type Department Care Team (Late st Contact Info) Description 02/07/2014 Documentation [facility] [address] [place] [address] Family Medicine, Physician [address] [place], [place] [phone] Social History Tobacco Use Types Packs/Day Years [...] on filedocumented in this encounter Care Teams Lining Layer Relationship Specialty Start Date End Date Briseyda Latif MD [address] [place], [place] [address]J[place]ER [address] PCP - General 05/07/17 11/11/22 documented as of this encounter
--- OUTSIDE RECORDS SUMMARY | 2025-09-17 18:39 | XMS_ITS | Clinical Summary ---
Author Organization [employer] Address [address] [place] [address] [address] [place] [address] Care Team Providers Care Accounts Payable Coordinator Name Role Phone Unavailable Primary Care Provider Unavailabl e Allergies No known active allergies Medications doxepin (SINEquan) 10 MG capsule Take 10 mg by mouth at bedtime. Active omeprazole (PriLOSEC) [address] capsule Take 20 mg by mouth before breakfast. Do not crush or chew. Active cyclobenzaprine (Flexeril) 5 MG tablet Take by mouth. Activ e ergocalciferol (Vitamin D-2) 1.25 MG (49410 UT) capsule Take 1.25 mg by mouth 1 (one) time per week. Active phentermine 37.5 MG capsule TAKE 37.5 MG ORALLY DAILY MUST ADMINISTER 30 MINUTES BEFORE OR 1-2 HOURS AFTER BREAKFAST Active Encounters Date Type Department Care Team Description 07/05/2025 3:00 PM EDT Office Visit [facility] [address] [place] [address] Jackie Anna 06/28/2025 Travel from Last 3 [...] Most Recently Relevant to Health Maintenance Insurance [facility] MEDICAID STAND ADULT
--- OUTSIDE RECORDS SUMMARY | 2025-09-17 18:39 | XMS_ITS | Clinical Summary ---
Author Organization [facility] Address [address] [place] [address] Phone Care Team Providers Care Truck Service Manager Name Role Phone Charissa Adams MD Primary Care Provider [phone] Allergies No known active allergies Medications omeprazole [...] ACO ACO ACO ACO ACO Care Teams Truck Service Manager Relationship Specialty Start Date End Date Charissa Adams MD [address] [place] [address] PCP - General Internal Medicine 07/14/22 Additional Source Comments The information contained in this document represents components of the legal health record. It is not the complete legal health record.[facility]
--- OUTSIDE RECORDS SUMMARY | 2025-09-17 18:39 | XMS_ITS | Encounter Summary ---
Author Organization [facility] Address [address] [place] [address] Phone Care Team Providers Care Locator Specialist Name Role Phone Briseyda Latif MD Primary Care Provider [phone] Encounter Details Date Type Department Care Team (Late st Contact Info) Description 07/31/2014 Documentation [facility] [address] [place] [address] Family Medicine, Physician [address] [place], [place] [id number] Social History Tobacco Use Types Packs/Day Years [...] on filedocumented in this encounter Care Teams Locator Specialist Relationship Specialty Start Date End Date Briseyda Latif MD [address] [place], [place] [address]J[place] [address] PCP - General 05/07/17 11/11/22 documented as of this encounter
--- OUTSIDE RECORDS SUMMARY | 2025-09-17 18:39 | XMS_ITS | Clinical Summary ---
Author Organization [facility] Address [address] [place] [address] Phone Care Team Providers Care Manufacturing Cost Estimator Name Role Phone Unavailable Primary Care Provider [...] Meningococcal Vaccine Aged Out 01/06/2007 No kal yleena eligible based on patient's age to complete [...]
--- OUTSIDE RECORDS SUMMARY | 2025-09-17 18:39 | XMS_ITS | Encounter Summary ---
Author Organization [facility] Address [address] [place] [address] Phone Care Team Providers Care Picked Edge Sewing Machine Operator Name Role Phone Briseyda Latif MD Primary Care Provider [phone] Encounter Details Date Type Department Care Team (Late st Contact Info) Description 02/05/2010 Documentation [facility] [address] [place] [address] Family Medicine, Physician [address] [place], [place] [phone] Social History Tobacco Use Types Packs/Day Years [...] on filedocumented in this encounter Care Teams Picked Edge Sewing Machine Operator Relationship Specialty Start Date End Date Briseyda Latif MD [address] [place], [place] [address]J[place] [address] PCP - General 05/07/17 11/11/22 documented as of this encounter
--- OUTSIDE RECORDS SUMMARY | 2025-09-17 18:39 | XMS_ITS | Clinical Summary ---
Author Organization [facility] Address [address] [place] [address] Phone Care Team Providers Care Slip Cover Operator Name Role Phone Charissa Aadms MD Primary Care Provider [phone] Allergies No known active allergies Medications cholecalciferol [...] topic Insurance [employer] Care Teams Slip Cover Operator Relationship Specialty Start Date End Date Charissa Adams MD [address] [place] [address] [address] [facility] [place] [address] PCP - General Internal Medicine 11/20/24
--- OUTSIDE RECORDS SUMMARY | 2025-09-17 18:39 | XMS_ITS | Encounter Summary ---
Author Organization [facility] Address [address] [place] [address] [place] [phone] Phone Care Team Providers Care Health Record Technician Name Role Phone Charissa Adams MD Primary Care Provider [phone] Encounter Details Date Type Department Care Team (Late st Contact Info) Description 04/07/2024 Procedure Pass [facility], [address] [address] Social History Tobacco Use Types Packs/Day Years [...] on filedocumented in this encounter Care Teams Health Record Technician Relationship Specialty Start Date End Date Charissa Adams MD [address] [place] [address] Drive [address] [place] [phone] PCP - General Internal Medicine 07/14/22 documented as of this encounter Additional Source Comments The information contained in this document represents components of the legal health record. It is not the complete legal health record.[facility]
--- OUTSIDE RECORDS SUMMARY | 2025-09-17 18:39 | XMS_ITS | Encounter Summary ---
Author Organization [facility] Address [address] [place] [phone] Phone Care Team Providers Care [employer] Name Role Phone Briseyda Latif MD Primary Care Provider [phone] Encounter Details Date Type Department Care Team (Late st Contact Info) Description 12/20/2012 Documentation EM Family Medicine [address] [place] [address] Family Medicine, Physician [address] [place], [place] [phone] Social History Tobacco Use Types Packs/Day Years [...] on filedocumented in this encounter Care Teams [employer] Relationship Specialty Start Date End Date Briseyda Latif MD [address] [place], [place] [address]J[place]ER [id number] PCP - General 05/07/17 11/11/22 documented as of this encounter
== END 2025-09-17 16:35 | disposition home or self-care (01) ==
LOC: HO.HMCH 15:45
PROVIDERS: PCP Internal Medicine; Visit Provider Internal Medicine
DX: E66.01 Morbid (severe) obesity due to excess calories (principal); Z68.43 Body mass index [BMI] 50.0-59.9, adult; E78.00 Pure hypercholesterolemia, unspecified; K21.9 Gastro-esophageal reflux disease without esophagitis; K76.0 Fatty (change of) liver, not elsewhere classified; G43.009 Migraine without aura, not intractable, without status migrainosus; G47.33 Obstructive sleep apnea (adult) (pediatric); M25.572 Pain in left ankle and joints of left foot

== ENCOUNTER → 2025-09-17 15:45 | Outpatient (BNVA) | payer OTHER, SELFPAY | PROVIDERS: PCP Internal Medicine; Visit Provider Internal Medicine | DX: E66.01 Morbid (severe) obesity due to excess calories (principal); Z68.43 Body mass index [BMI] 50.0-59.9, adult; E78.00 Pure hypercholesterolemia, unspecified; K21.9 Gastro-esophageal reflux disease without esophagitis; K76.0 Fatty (change of) liver, not elsewhere classified; G43.009 Migraine without aura, not intractable, without status migrainosus; G47.33 Obstructive sleep apnea (adult) (pediatric); M25.572 Pain in left ankle and joints of left foot; Z99.89 Dependence on other enabling machines and devices; Z91.198 Patient's noncompliance with other medical treatment and regimen for other reason; Z13.31 Encounter for screening for depression; I38 Endocarditis, valve unspecified; Z79.899 Other long term (current) drug therapy | CPT/HCPCS: 96127; 99212 ==